=== PATIENT | male | born 1985 | race Caucasian/White ===

== ENCOUNTER 2021-07-16 07:20 | Outpatient (REF) | payer OTHER, SELFPAY ==
[2021-07-16 07:32] LABS: MANUAL DIFF FLAG NO
[2021-07-16 07:45] LABS: Basophils Absolute Auto 0.1 X10*3/uL (0.0-0.2); Eosinophils Absolute Auto 0.1 X10*3/uL (0.0-0.4); Eosinophils Percent Auto 2.9 % (0-4); Hemoglobin 15.2 g/dl (14.0-18.0); Imm Gran Abs Auto 0.01 X10*3/uL (0.00-0.03); Imm Gran Pct Auto 0.2 % (0.0-0.4); Lymphocytes Absolute Auto 1.7 X10*3/uL (1.2-4.9); Lymphocytes Percent Auto 34.2 % (20-40); Mean Corpuscular HGB Conc 32.3 g/dl (31.0-36.0); Mean Corpuscular Hemoglobin 28.6 pg (27.0-33.0); Mean Corpuscular Volume 88.3 fL (80.0-98.0); Mean Platelet Volume 10.2 fL (9.4-12.4); Monocytes Absolute Auto 0.4 X10*3/uL (0.1-1.2); Monocytes Percent Auto 7.4 % (2-11); Neutrophils Absolute Auto 2.7 x10*3/uL (2.0-8.3); Neutrophils Percent Auto 54.3 % (45-73); Platelet Count 287 X10*3/uL (160-400); Red Blood Count 5.32 X10*6/uL (4.60-5.80); White Blood Count 4.9 X10*3/uL (4.8-10.8)
[2021-07-16 07:58] LABS: Alanine Aminotransferase 72 U/L (0-40); Albumin Level 4.4 g/dL (3.5-5.0); Alkaline Phosphatase 61 U/L (39-117); Anion Gap 11 (12-20); Aspartate Amino Transferase 48 U/L (5-37); Bilirubin Total 0.6 mg/dL (0.0-1.0); Blood Urea Nitrogen 9 mg/dL (9-16); Calcium 9.5 mg/dL (8.4-10.2); Carbon Dioxide 27 mmol/L (22-29); Chloride 106 mmol/L (96-108); Cholesterol 209 mg/dL; Estimated Glomerular Filt Rate > 60; Glucose Fasting 102 mg/dL (60-99); HDL Cholesterol 29 mg/dL; LDL Cholesterol Calculated 159 mg/dl; Potassium 4.7 mmol/L (3.3-5.1); Sodium 139 mmol/L (135-145); Triglycerides 107 mg/dL
[2021-07-16 08:20] LABS: TSH reflex Free T4 1.01 uIU/mL (0.32-4.0)
== END 2021-07-16 07:21 | disposition home or self-care (01) ==
LOC: HO.LAB 07:20
PROVIDERS: PCP Nurse Practitioner Family; Visit Provider Nurse Practitioner Family
DX: I10 Essential (primary) hypertension (principal); E78.00 Pure hypercholesterolemia, unspecified; K21.9 Gastro-esophageal reflux disease without esophagitis; Z76.89 Persons encountering health services in other specified circumstances
CPT/HCPCS: 36415; 80053; 80061; 84443; 85025

== ENCOUNTER 2021-08-27 06:06 | Outpatient (REF) | payer OTHER, SELFPAY ==
[2021-08-27 11:51] LABS: Alanine Aminotransferase 83 U/L (0-40); Albumin Level 4.3 g/dL (3.5-5.0); Alkaline Phosphatase 59 U/L (39-117); Aspartate Amino Transferase 55 U/L (5-37); Bilirubin Direct 0.4 mg/dL (0.0-0.5); Gamma Glutamyl Transpeptidase 27 U/L (11-51); Total Protein 6.9 g/dL (6.5-8.0)
== END 2021-08-27 06:07 | disposition home or self-care (01) ==
LOC: HO.HMGCLDS 06:06
PROVIDERS: PCP Nurse Practitioner Family; Visit Provider Nurse Practitioner Family
DX: R74.8 Abnormal levels of other serum enzymes (principal)
CPT/HCPCS: 36415; 80076; 82977

== ENCOUNTER 2021-10-16 10:21 | Outpatient (REF) | payer OTHER, SELFPAY ==
--- NOTE | ~2021-10-16 | US_ITS ---
EXAMINATION: US ABDOMEN LIMITED CLINICAL INFORMATION: Elevated liver enzymes. COMPARISON: None. TECHNIQUE: Real-time imaging of the right upper quadrant abdominal viscera. FINDINGS: PANCREAS: Visualized head and part of the body of the pancreas is homogeneous. LIVER: The liver is normal in size. The liver contour is normal. Parenchymal echogenicity is normal. There are anechoic cyst. A right hepatic lobe cyst measures 1.2 x 0.9 x 1.2 cm and a smaller cyst adjacent to the gallbladder measures 0.6 x 0.6 x 0.8 cm. There is no intrahepatic biliary duct dilatation seen. GALLBLADDER: Gallbladder wall thickness is 0.21 cm. The gallbladder is physiologically distended without evidence of stones, sludge, polyps, wall thickening or pericholecystic fluid. COMMON BILE DUCT: Normal in caliber measuring 0.4 cm in diameter. RIGHT KIDNEY: Normal. No hydronephrosis. No renal calculi or focal parenchymal lesions. The kidney measures 12.2 cm in maximum dimension. FREE FLUID: None. US/US abdomen limited IMPRESSION: Right hepatic cyst. The rest of the limited ultrasound abdominal imaging is unremarkable.
== END 2021-10-16 10:22 | disposition home or self-care (01) ==
LOC: HO.HMGCX 10:21
PROVIDERS: Visit Provider Nurse Practitioner Family
DX: R74.8 Abnormal levels of other serum enzymes (principal)
CPT/HCPCS: 76705

== ENCOUNTER 2022-01-14 15:48 | Outpatient (REF) | payer OTHER, SELFPAY ==
--- NOTE | ~2022-01-14 | XR_ITS ---
EXAMINATION: OCTOBER PRE-MRI CLINICAL INFORMATION: Pre-MRI COMPARISON: None TECHNIQUE: 3 views of the orbits FINDINGS: No suspicious radiopaque foreign bodies are identified about the orbits. A linear metallic density is seen arising the nose which represents metal within the patient's mask. Areas are in place. Visualized paranasal sinuses and mastoid air cells appear unremarkable. XR/XR pre mri screening IMPRESSION: No suspicious radiopaque foreign body seen about the orbits.
== END 2022-01-14 15:49 | disposition home or self-care (01) ==
LOC: HO.MRI 15:48
PROVIDERS: Absent Provider Nurse Practitioner Family; Visit Provider Physician Assistant
DX: Z13.89 Encounter for screening for other disorder (principal)

== ENCOUNTER 2022-01-15 07:19 | Outpatient (REF) | payer OTHER, SELFPAY ==
--- NOTE | ~2022-01-15 | MR_ITS ---
EXAMINATION: MR ANGIOGRAPHY CHEST WITH CONTRAST CLINICAL INFORMATION: Strain of muscle and tendon. Patient reports bruising left chest and upper arm. COMPARISON: None. TECHNIQUE: The routine chest MRA protocol without and with contrast was performed. Magnevist 100 mL was administered. The images were reviewed and post processed on a dedicated 3-D workstation. FINDINGS: MUSCLES/TENDONS: Pectoralis major: There is a complete insertional tear of the pectoralis major tendon. Tendon is retracted approximately 4.7 cm. There is abnormal fluid signal surrounding the retracted tendon likely sequela of the tendon tear with areas of edema and perhaps evolving hemorrhage. The retracted tendon has a heterogeneous slightly serpentine appearance compatible with tendon shortening related to the retraction and additional intrasubstance partial tearing of the distal end of the tendon. The remaining bones, joints and soft tissues are unremarkable. MR/MR chest wo con IMPRESSION: Complete insertional tear of the pectoralis major tendon with retraction.
== END 2022-01-15 07:20 | disposition home or self-care (01) ==
LOC: HO.MRI 07:19
PROVIDERS: PCP Physician Assistant; Visit Provider Physician Assistant
DX: S29.011D Strain of muscle and tendon of front wall of thorax, subsequent encounter (principal)
CPT/HCPCS: 71550

== ENCOUNTER 2022-01-18 13:43 | Outpatient (RCR) | payer OTHER, SELFPAY ==
--- NOTE | 2022-01-18 14:49 | MHC.PT.EP ---
[facility] Office [place] Office [place] Office [address] Harijnder Lowry [address] [phone] F: [phone] F: [phone] F: [phone] F: [phone] Physical Therapy Plan of Care Date of Evaluation: Date of Surgery: n/a Diagnosis: strain of muscle and tendon for thorax Assessment: Patient is a 36 year old male presenting to PT with complaints of pain in his L chest/shoulder region. Pt reports onset of pain began at the end of November 2021 due to falling and trying to catch himself when doing a [employer] obstacle course. He presents today with impairments in pain, ROM, posture, strength. 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 Pt expresses oysterman goal of returning to PLOF, and is motivated to work towards this in PT. Clinical presentation today is most consistent with signs and sx associated with L pec injury with question of tear pending MRI results and pt will benefit from skilled PT to address the following problems and impairments noted upon evaluation: pain, ROM, posture, strength. These problems limit the patient with the following functional activities: work, playing with kids, ADLs, exercise, lifting, reaching. The prescribed treatment plan of care is medically necessary. Co-morbidities of none were identified and taken into considerations of plan of care. Pt was educated on HEP, role of PT, prognosis, POC. Frequency and Duration: The patient will be seen 2 x week x 4 weeks Short Term Goals: Pt will demonstrate improved L shoulder strength by 1/3 MMT grade in 2 weeks. Pt will demonstrate improved postural awareness by sitting with biomechanically correct posture without cues throughout session to improve overall postural function in 2 weeks. Pt will demonstrate L shoulder ROM in all directions with no discomfort in 2 weeks. Fpc Goals: Pt will demonstrate improved SPADI score by 13 points in 4 weeks for improved functional mobility. Pt will demonstrate ability to care for and play with kids with min to no pain in 4 weeks for return to PLOF. Pt will demonstrate ability to complete ADLs including lifting at PLOF with min to no pain in 4 weeks for return to PLOF. Treatment Plan: Modalities to reduce pain, spasms and effusion. Manual therapy to restore motion and function. Therapeutic exercise to improve strength and flexibility. Neuromuscular re-education for posture and balance. Therapeutic activities to return to functional activities of daily living. Electronically signed by: Melba Salazar, PT, DPT, ATC Please sign and return to therapist. Thank you for your referral.
--- NOTE | 2022-02-03 08:46 | MHC.PT.DC ---
[facility] [place] Office [place] Office [place] Office [address] Harjinder Lowry [address] [facility] [phone] F: [phone] F: [phone] F: [phone] F: [phone] Physical Therapy Discharge Report Diagnosis: strain of muscle and tendon for thorax Date of Surgery: n/a Date of Evaluation: 01/18/22 Date of Discharge: 02/03/22 Treatments to Date: 1 Cancellations to Date: 1 No Shows to Date: 0 Discharge Status: Physician Discontinued Tx Recommend MD Follow-up Discharge Summary: Pt notified he was candidate for surgery and is getting surgery. At this time skilled PT is no longer indicated. He will benefit from PT once post op. Electronically signed by: Melba Salazar, PT, DPT, ATC Please sign and return to therapist. Thank you for your referral.
== END 2022-02-03 08:46 | disposition home or self-care (01) ==
LOC: HO.PTCHIC 13:43
PROVIDERS: PCP Nurse Practitioner Family; Visit Provider Physician Assistant
DX: S29.011D Strain of muscle and tendon of front wall of thorax, subsequent encounter (principal)
CPT/HCPCS: 97110; 97161

== ENCOUNTER → 2022-01-28 08:43 | Outpatient (BNVA) | payer OTHER, SELFPAY | PROVIDERS: PCP Physician Assistant; Visit Provider Physician Assistant | DX: S29.011A Strain of muscle and tendon of front wall of thorax, initial encounter (principal) | CPT/HCPCS: 99202 ==

== ENCOUNTER 2022-02-03 11:20 | Day surgery (SDC) | payer OTHER, SELFPAY ==
--- NOTE | 2022-02-02 08:21 | HO.ANESPROP2 ---
Documented by User: Mali Briceno NP 02/02/22 08:22 HPI - Anesthesia Eval Consult details Narrative: 36yo M for Left Pectoral Muscle Repair PMFSH Active Problems Active Problems: All Active Problems (Updated 01/28/22 @ 09:57 by Leonie Encinas) Labral tear of long head of biceps tendon (Acute) Pectoral muscle rupture (Acute) Elevated liver enzymes (Acute) Chronic low back pain (Acute) Pseudofolliculitis barbae (Acute) GERD (gastroesophageal reflux disease) (Acute) Hypertension (Acute) Past Medical History Medical History (Updated 02/03/22 @ 13:00 by Olimpia Fairbanks, RN) Encounter to establish care GERD (gastroesophageal reflux disease) HTN (hypertension) Left foot pain Plantar fasciitis, bilateral Family History Family History Other Substance use disorder Surgical History Surgical History (Updated 02/03/22 @ 12:59 by Olimpia Fairbanks RN) History of photorefractive keratectomy (PRK) History of vasectomy [place] teeth extracted Social History Social History Housing: House Alcohol intake: current Alcohol intake frequency: a few times a month Patient Tobacco Use Status: Former Tobacco user Quit Date: 2014 e-Cigarette/Vaping Use: Never Used Second Hand Smoke Exposure: No Use of substances other than those prescribed or required for medical reasons: No Are you DNR?: No Advance Directives: No Advance Directives Information Provided: Yes service: Yes Current occupational status: employed Current occupation: [employer] Cognitive needs: No Hearing needs: No Vision needs: No Meds Allergies Allergy/AdvReac Type Severity Reaction Status Date / Time Penicillins Allergy Intermediate Hives Verified 02/03/22 13:00 Exam Exam Date and Time: February 02, 2022 0821 Pertinent Lab Results Pertinent Lab Results: Laboratory Tests 07/16/21 07/16/21 07:31 07:31 WBC 4.9 Hgb 15.2 Hct 47.0 Plt Count 287 Sodium 139 Potassium 4.7 Chloride 106 Carbon Dioxide 27 BUN 9 Creatinine 1.06 Assessment and Plan Assessment Anesthesia Assessment: Chart Reviewed Documented by User: Aki Sun MD 02/03/22 18:38 [facility] Past Medical History Medical History (Updated 02/03/22 @ 13:00 by Olimpia Fairbanks RN) Encounter to establish care GERD (gastroesophageal reflux disease) HTN (hypertension) Left foot pain Plantar fasciitis, bilateral Functional capacity: independent ambulation Family History Family History Other Substance use disorder Family history of problems with anesthesia: No Surgical History Surgical History (Updated 02/03/22 @ 12:59 by Olimpia Fairbanks, HELEN) History of photorefractive keratectomy (PRK) History of vasectomy [place] teeth extracted History of Problems with Anesthesia: No Social History Social History Housing: House Alcohol intake: current Alcohol intake frequency: a few times a month Patient Tobacco Use Status: Former Tobacco user Quit Date: 2014 e-Cigarette/Vaping Use: Never Used Second Hand Smoke Exposure: No Use of substances other than those prescribed or required for medical reasons: No Are you DNR?: No Advance Directives: No Advance Directives Information Provided: Yes service: Yes Current occupational status: employed Current occupation: [employer] Cognitive needs: No Hearing needs: No Vision needs: No Meds Allergies Allergy/AdvReac Type Severity Reaction Status Date / Time Penicillins Allergy Intermediate Hives Verified 02/03/22 13:00 Exam Airway Mallampati Class: IV Loose/Missing/Broken Teeth: Yes (Chipped front lower , fillings ) Assessment and Plan Assessment Anesthesia Assessment: Anesthesia Plan Discussed Final Anesthetic Review Family History of Problems with Anesthesia: No History of Problems with Anesthesia: No NPO: Yes ASA Class: II Final Preanesthetic Review: Meds/Allgs Chart Reviewed, Consent Obtained/Reviewed and Anes Risks/Benef Reviewed Patient Risk: Intermediate Procedure Risk: Intermediate Anesthetic Plan Anesthetic Plan: GA and Regional Block Disposition: Standard PACU Documented by User: Inga Martinez MD 02/03/22 15:50 PMFSH Past Medical History Medical History (Updated 02/03/22 @ 13:00 by Olimpia Fairbanks, RN) Encounter to establish care GERD (gastroesophageal reflux disease) HTN (hypertension) Left foot pain Plantar fasciitis, bilateral Family History Family History Other Substance use disorder Surgical History Surgical History (Updated 02/03/22 @ 12:59 by Olimpia Fairbanks, HELEN) History of photorefractive keratectomy (PRK) History of vasectomy [place] teeth extracted Social History Social History Housing: House Alcohol intake: current Alcohol intake frequency: a few times a month Patient Tobacco Use Status: Former Tobacco user Quit Date: 2014 e-Cigarette/Vaping Use: Never Used Second Hand Smoke Exposure: No Use of substances other than those prescribed or required for medical reasons: No Are you DNR?: No Advance Directives: No Advance Directives Information Provided: Yes service: Yes Current occupational status: employed Current occupation: [employer] Cognitive needs: No Hearing needs: No Vision needs: No Meds Allergies Allergy/AdvReac Type Severity Reaction Status Date / Time Penicillins Allergy Intermediate Hives Verified 02/03/22 13:00 Exam Height,Weight and Vital Signs: Height 5 ft 11 in Weight 108.862 kg Vital Signs Temp Pulse Resp BP Pulse Ox O2 Del Method 02/03/22 13:05 97.9 F 66 15 142/86 H 97 Room Air Airway Mallampati Class: II TM Dist: >3cm Neck ROM: Full Heart: RRR Lungs: CTAB
[2022-02-03 13:01] VITALS: BMI 33.5
[2022-02-03 13:05] VITALS: BP 142/86; PULSE 66; RESP 15; TEMP 36.6; O2SAT 97
--- NOTE | 2022-02-03 13:43 | MHC.SHP ---
Pre-Procedural Eval Section A Date of Service: 02/03/22 The patient is an INPATIENT: No Changes since office visit: No Cold of Flu in the past 2 weeks, No New Medical Problems, No Changes in Medication and No Patient answered all questions The History & Physical has been completed within 30 days and I have reviewed it.: Yes Section B Chief Complaint: Strain of muscle and tendon of front wall of thora Allergies: Allergies Allergy/AdvReac Type Severity Reaction Status Date / Time Penicillins Allergy Intermediate Hives Verified 02/03/22 13:00 Plan I have reviewed the history and physical and performed a pertinent physical examination on my patient. No changes have occurred unless specified.
[2022-02-03] MEDS: Lactated Ringers 1,000 ML 100 ML IVCONT (13:55)
--- NOTE | 2022-02-03 17:29 | P.BOP_ITS ---
Brief Operative Note Date of Service: 02/03/22 Pre-op diagnosis: Left pectoralis rupture Post-op diagnosis: same Procedure: Repair left pectoralis Implants: Paiz and nephew sutue button x 4 Dermal Allograft 3mm thick, Chencho and Nephjuana Surgeon: Nicanor Nagy MD Anesthesia: GETA, regional and local Was an Construction Driller used for this Procedure?: Yes Construction Driller: Keyonna Winn Estimated blood loss (mL): 50 IV fluids (mL): 1,000 Pathology: none sent Condition: stable Disposition: PACU
[2022-02-03 18:00] VITALS: BP 139/87; PULSE 87; RESP 16; TEMP 36.7; O2SAT 100
[2022-02-03 18:05] VITALS: BP 137/85; PULSE 85; RESP 16; O2SAT 94
[2022-02-03 18:10] VITALS: BP 141/84; PULSE 85; RESP 16; O2SAT 95
[2022-02-03 18:25] VITALS: BP 132/83; PULSE 96; RESP 16; O2SAT 95
--- NOTE | 2022-02-09 11:22 | W.PM.OPN ---
Operative Note Operative Note Date of Service: 02/03/22 Narrative: Date of Service: 02/03/22 Pre-op diagnosis: Left pectoralis rupture Post-op diagnosis: same Procedure: Repair left pectoralis Implants: Paiz and nephew sutue button x 4 Dermal Allograft 3mm thick, Chencho and Nephjuana Surgeon: Nicanor Nagy MD Anesthesia: GETA, regional and local Was an Plastic Cnc Machine Operator used for this Procedure?: Yes Plastic Cnc Machine Operator: Keyonna Winn Estimated blood loss (mL): 50 IV fluids (mL): 1,000 Pathology: none sent Condition: stable Disposition: PACU Patient was brought to the operating room and placed in the beach chair position on the surgical table. The limb was prepped and draped in standard sterile fashion and a time out was called to identify proper site, proper procedure and IV antibiotics per weight were administered. I began by making a deltopectoral incision from the coracoid to the pectoralis insertion.? Blunt dissection identified the cephalic vein which was retracted laterally.? Blunt dissection was taken down to the pec insertion. The clavicular head was palpable but the sternal head was retracted. I bluntly dissected circumerentially around the pectoralis to release the tendon. It was mobile but tight. I placed 4 fiber tapes, in [place] fashion through the tendon. I then cleared the soft tissue from the pectoralis insertion jut lateral to the bicipital groove. I then placed 4 suture buttons unicortically. Because the tendon was tight and sub acute a used a free needle and a collagen 3mm allograft the the undersurface of the tendon to prevent suture pullout. This was very solid and resisted as much tension as I woulc apply. I then dunked the sutures into the corresponding suture bottons and, with the arm internally rotated and adducted, re-approximated the sternal head of the pec tendon to its [place] insertion on the humerus. This was re-approximated near-anatomically. I was satisfied with the construct. I irrigated copiously and closed with absorbable sutures and skin glue. Pateint was placed into a sterile dressing nad abduction sling and then extubated and brought to the recovery room in stable conditions. There were no known complications.
== END 2022-02-03 19:10 | disposition home or self-care (01) ==
LOC: HO.SSS 11:21
PROVIDERS: PCP Physician Assistant; Visit Provider Orthopaedic Surgery
PROC: (CPT 24341; principal; 2022-02-03 14:10)
DX: S29.011A Strain of muscle and tendon of front wall of thorax, initial encounter (principal); W18.49XA Other slipping, tripping and stumbling without falling, initial encounter; Y93.B9 Activity, other involving muscle strengthening exercises; Y92.84 Military training ground as the place of occurrence of the external cause; Y99.1 Military activity; I10 Essential (primary) hypertension; R74.8 Abnormal levels of other serum enzymes; K21.9 Gastro-esophageal reflux disease without esophagitis; Z79.899 Other long term (current) drug therapy; Z88.0 Allergy status to penicillin; Z72.0 Tobacco use
CPT/HCPCS: 24341; C1713; J0690; J1100; J2250; J2405; J2795; J3010; Q4128

== ENCOUNTER → 2022-02-08 09:44 | Outpatient (BNVA) | payer OTHER, SELFPAY | PROVIDERS: PCP Internal Medicine; Visit Provider Physician Assistant | DX: S29.011D Strain of muscle and tendon of front wall of thorax, subsequent encounter (principal) | CPT/HCPCS: 99212 ==

== ENCOUNTER → 2022-03-08 10:08 | Outpatient (BNVA) | payer OTHER, SELFPAY | PROVIDERS: PCP Internal Medicine; Visit Provider Physician Assistant | DX: S29.011D Strain of muscle and tendon of front wall of thorax, subsequent encounter (principal) | CPT/HCPCS: 99212 ==

== ENCOUNTER → 2022-04-19 08:43 | Outpatient (BNVA) | payer OTHER, SELFPAY | PROVIDERS: PCP Internal Medicine; Visit Provider Physician Assistant | DX: Z13.89 Encounter for screening for other disorder (principal) | CPT/HCPCS: 99212 ==

== ENCOUNTER 2022-05-07 08:49 | Outpatient (REF) | payer OTHER, SELFPAY ==
[2022-05-07 12:35] LABS: Alanine Aminotransferase 42 U/L (0-40); Albumin Level 4.5 g/dL (3.5-5.0); Alkaline Phosphatase 60 U/L (39-117); Anion Gap 15 (12-20); Aspartate Amino Transferase 30 U/L (5-37); Bilirubin Total 0.7 mg/dL (0.0-1.0); Blood Urea Nitrogen 19 mg/dL (9-16); Calcium 9.4 mg/dL (8.4-10.2); Carbon Dioxide 23 mmol/L (22-29); Chloride 107 mmol/L (96-108); Estimated Glomerular Filt Rate > 60; Glucose Random 105 mg/dL (60-115); Potassium 4.6 mmol/L (3.3-5.1); Sodium 140 mmol/L (135-145); Total Protein 6.8 g/dL (6.5-8.0)
[2022-05-10 08:21] LABS: HBc Num1 0.23 S/CO (0.00-0.79); HBsAGNum1 0.34 S/CO (0.00-0.99); Hepatitis A Antibody IgM 0.28 Index (0-0.79); Hepatitis B Core Antibody Nonreactive (Nonreactive); Hepatitis B Surface Antigen Negative (Negative); ~HepC Num1 0.17 S/CO (0.00-0.79); ~Hepatitis A Antibody IgM Nonreactive (Nonreactive); ~Hepatitis B Surface Antibody REACTIVE (Nonreactive); ~Hepatitis C Antibody Nonreactive (Nonreactive)
== END 2022-05-07 08:50 | disposition home or self-care (01) ==
LOC: HO.HMGCLDS 08:49
PROVIDERS: PCP Nurse Practitioner Family; Visit Provider Nurse Practitioner Family
DX: R74.8 Abnormal levels of other serum enzymes (principal)
CPT/HCPCS: 36415; 80053; 86704; 86706; 86709; 86803; 87340

== ENCOUNTER → 2022-06-18 09:19 | Outpatient (BNVA) | payer OTHER, SELFPAY | PROVIDERS: PCP Nurse Practitioner Family; Visit Provider Physician Assistant | DX: S29.011D Strain of muscle and tendon of front wall of thorax, subsequent encounter (principal) | CPT/HCPCS: 99212 ==

== ENCOUNTER 2022-07-26 10:00 | Outpatient (RCR) | payer OTHER, SELFPAY ==
--- NOTE | 2022-02-08 11:26 | MHC.PT.EP ---
[facility] [place] Office [place] Office [place] Office [address] Harjinder Lowry [address] [phone] F: [phone] F: [phone] F: [phone] F: [phone] Physical Therapy Plan of Care Date of Evaluation: Date of Surgery: 02/03/22 Diagnosis: LEFT PECT REPAIR Assessment: CHRISTINA IS A PLEASANT 36 YO MALE WHO WORKS AT [employer] AND PRESENTS POD #5 FOR ORTHOPEDIC FOLLOW UP AND PT EVALUATION. UPON EXAM HE DEMONSTRATES THE EXPECTED IMPAIRMENTS OF DECREASED ROM, DECREASED STRENGTH, ALTERED POSTURE AND POSITIONING, INCREASED UPPER TRAP GUARDING, AND INCREASED PAIN AND EDEMA. FUNCTIONAL LIMITATIONS INCLUDE DECREASED ABILITY TO PERFORM HOMEMAKING AND SELF-CARE TASKS, DECREASED ABILITY TO PERFORM PUSHING, PULLING, LIFTING AND REACHING. INABILITY TO DRIVE AND PERFORM WORK TASKS, DECREASED PARTICIPATION IN COMMUNITY AND RECREATIONAL ACTIVITIES AND DISRUPTED SLEEP. THE PT IS A GOOD CANDIDATE FOR SKILLED PT DUE TO AGE, POTENTIAL REMEDIATION OF IMPAIRMENTS, TYPICAL DISEASE/CONDITION PROGRESSION AND PROGNOSIS, COMORBIDITIES, AND MOTIVATION. PT WOULD BENEFIT FROM TAILORED PROGRAM OF THERAPEUTIC ACTIVITIES, FUNCTIONAL TRAINING,, POSTURAL EDUCATION, NEUROMUSCULAR RE-EDUCATION, AND MODALITIES NEEDED. 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 Manual therapy to restore motion and function. Therapeutic exercise to improve strength and flexibility. Neuromuscular re-education for posture and balance. Therapeutic activities to return to functional activities of daily living. Electronically signed by: CRISPIN CARNES PT, DPT Please sign and return to therapist. Thank you for your referral.
--- NOTE | 2022-07-26 10:55 | MHC.PT.DC ---
[facility] [place] Office [place] Office [place] Office [address] Harjinder Lowry [address] [phone] F: [phone] F: [phone] F: [phone] F: [phone] Physical Therapy Discharge Report Diagnosis: LEFT PECT REPAIR Date of Surgery: 02/03/22 Date of Evaluation: 02/08/22 Date of Discharge: 07/26/22 Treatments to Date: 45 Cancellations to Date: 3 No Shows to Date: 1 Discharge Status: Achieved Goals Improved Function Independent with HEP Discharge Summary: 07/26/2022: Ole has made good progress since start of care. He has made great progress in strength, ROM, and functional mobility. He is no longer experiencing pain but still feeling weakness with more challenging activities like pushups. He does not have his full pushup strength at this point however we discussed that it will take months for his full strength to develop and he is independent in a home program that will allow him to progress to full strength with continuation. He is required to be able to do pushups for a fitness test for work and he understands the importance of continuing in order to be able to complete this. At this time max benefits of PT have been provided and skilled PT is no longer indicated. He is in agreement with d/c today. Electronically signed by: Melba Salazar, PT, DPT, ATC Please sign and return to therapist. Thank you for your referral.
== END 2022-07-26 10:55 | disposition home or self-care (01) ==
LOC: HO.PTCHIC 10:00
PROVIDERS: PCP Internal Medicine; Visit Provider Physician Assistant
DX: S29.011D Strain of muscle and tendon of front wall of thorax, subsequent encounter (principal)
CPT/HCPCS: 97110; 97140; 97161; 97530

== ENCOUNTER → 2022-08-13 09:18 | Outpatient (BNVA) | payer OTHER, SELFPAY | PROVIDERS: PCP Nurse Practitioner Family; Visit Provider Physician Assistant | DX: S29.011D Strain of muscle and tendon of front wall of thorax, subsequent encounter (principal) | CPT/HCPCS: 99212 ==

== ENCOUNTER 2022-11-04 08:31 | Outpatient (REF) | payer OTHER, SELFPAY ==
--- NOTE | ~2022-11-04 | US_ITS ---
EXAMINATION: US ABDOMEN LIMITED CLINICAL INFORMATION: Liver cyst. COMPARISON: Ultrasound abdomen limited 10/16/2021. TECHNIQUE: Real-time imaging of the right upper quadrant abdominal viscera. FINDINGS: PANCREAS: Visualized portions of the pancreas are unremarkable. The pancreatic body and tail is obscured by bowel gas. LIVER: The liver is normal in size. The liver contour is normal. Parenchymal echogenicity is normal. Benign-appearing hepatic cysts measuring up to 1.3 cm, previously 1.2 cm There is no intrahepatic biliary duct dilatation seen. GALLBLADDER: Normal. The gallbladder is physiologically distended without evidence of stones, sludge, polyps, wall thickening or pericholecystic fluid. COMMON BILE DUCT: Normal in caliber measuring 0.44 cm in diameter. RIGHT KIDNEY: Normal. No hydronephrosis. No renal calculi or focal parenchymal lesions. The kidney measures 12.7 cm in maximum dimension. FREE FLUID: None. US/US abdomen limited IMPRESSION: 1. Benign-appearing hepatic cysts. 2. Visualized portions of the pancreas are unremarkable. The pancreatic body and tail is obscured by bowel gas.
== END 2022-11-04 08:32 | disposition home or self-care (01) ==
LOC: HO.HMGCX 08:31
PROVIDERS: PCP Nurse Practitioner Family; Visit Provider Nurse Practitioner Family
DX: K76.89 Other specified diseases of liver (principal)
CPT/HCPCS: 76705

== ENCOUNTER 2022-11-11 05:13 | Outpatient (REF) | payer OTHER, SELFPAY ==
--- NOTE | ~2022-11-11 | XR_ITS ---
EXAMINATION: XR SHOULDER, RIGHT CLINICAL INFORMATION: Pain. COMPARISON: None available. TECHNIQUE: AP neutral, Grashey and axillary views of the right shoulder are submitted. FINDINGS: The bones and soft tissues are normal. No fracture. Glenohumeral and acromioclavicular alignment is anatomic with normal joint space. No abnormal soft tissue calcifications. XR/XR shoulder RT min 2V IMPRESSION: Normal right shoulder.
== END 2022-11-11 05:14 | disposition home or self-care (01) ==
LOC: HO.HOSX 05:13
PROVIDERS: Visit Provider Physician Assistant
DX: M25.511 Pain in right shoulder (principal)
CPT/HCPCS: 20610; 73030; 99212; J1040

== ENCOUNTER 2022-11-11 10:23 | Outpatient (AMB) | payer OTHER, SELFPAY ==
--- NOTE | 2022-11-11 10:38 | MHC.OFFVIS ---
Intake Vital Signs 11/11/22 10:44 Height 5 ft 11 in Weight 245 lb BMI 34.2 Handedness Right Intake Visit Reasons: New Prob- Right shoulder pain Intake Note: Ole is a 36 year old right hand dominant male who presents today for a evaluation for his right shoulder pain. Patient reports waking up in the morning with a lot of pain. He states he was feeling pinching and a burning sensation. Patient reports his ROM is a little limited due to the pain. Pain is in the lateral aspect of the shoulder. Allergies Penicillins Allergy (Intermediate, Verified 11/11/22 10:42) Hives HPI New Prob- Right shoulder pain HPI Details 37-year-old right hand dominant male who presents in the office today for an evaluation of right shoulder pain. The patient reports his pain originated a month ago, 09/2022. He states he woke up this morning with a lot of pain. He claims to having a pinching and burning sensation, but this is not present while he is in the office today. He reports his ROM is a little limited due to pain. He claims the pain is on the lateral aspect of the right shoulder. He does not recall any injury. He states he went to the gym this morning and states the shoulder did fine. [facility] Medical History Encounter to establish care GERD (gastroesophageal reflux disease) HTN (hypertension) Left foot pain Plantar fasciitis, bilateral Surgical History History of photorefractive keratectomy (PRK) History of vasectomy [place] teeth extracted Family History Other Substance use disorder Social History Housing: House Alcohol intake: current Alcohol intake frequency: a few times a month Patient Tobacco Use Status: Former Tobacco user Quit Date: 2014 e-Cigarette/Vaping Use: Never Used Second Hand Smoke Exposure: No service: Yes Current occupational status: employed Current occupation: [employer] Cognitive needs: No Hearing needs: No Vision needs: No Review of Systems Const All systems reviewed & are unremarkable except as noted in HPI and below Physical Exam Vital Signs: BMI result Body Mass Index 34.2 Const General: cooperative, healthy appearing and no acute distress Resp Effort & Inspection: normal respiratory effort and able to speak in complete sentences Cardio Rate: regular rate Peripheral pulses: Peripheral pulses 2+ throughout GI Palpation (GI): Soft to palpation Skin Lesions: no lesions Rashes: no rashes Extrem Other: Right shoulder: Normal to inspection. No ecchymosis, erythema, or edema. Full shoulder ROM in all planes. Negative cross-body reach. Negative empty can. Negative drop arm. NVI. Office Procedures Joint Injection/Drain Joint Injection/Drain Primary Site: right shoulder Prep: site was prepped using aseptic technique, ethochloride spray was applied and injection warnings given Injected: 80 mg of, DepoMedrol, with 8 mL of (2% lido plain) and in the subcromial space Approach Used: posterolateral Procedure: The patient tolerated the procedure well, but had some pain with the injection and there was some relief with the local anesthesia Coding 92764 - Large joint Procedure code (CPT) selection complete Results Reviewed Results Reviewed: 11/11/22 11:10 Lidocaine HCl 2 % MPF [Xylocaine 2 % MPF] 5 ml .ROUTE .STK-MED ONE methylPREDNISolone acetate [DEPO-MedroL] 80 mg .ROUTE .STK-MED ONE 11/11/22 11:11 Lidocaine HCl 2 % MPF [Xylocaine 2 % MPF] 5 ml .ROUTE .STK-MED ONE Assessment & Plan Assessment & Plan (1) Painful arc syndrome of right shoulder: Code(s): M75.101 - Unspecified rotator cuff tear or rupture of right shoulder, not specified as traumatic Plan Mr. Veliz is a 37-year-old right hand dominant male who presents in the office today for an evaluation of right shoulder pain. The patient reports his pain originated a month ago, 09/2022. He states he woke up this morning with a lot of pain. He claims to having a pinching and burning sensation, but this is not present while he is in the office today. He reports his ROM is a little limited due to pain. He claims the pain is on the lateral aspect of the right shoulder. He does not recall any injury. He states he went to the gym this morning and states the shoulder did fine. The patient was offered a cortisone injection in the right shoulder with 80 mg of DepoMedrol. The patient was explained the risk, benefits, and alternatives to receiving this injection. After receiving consent for the injection, the patient had the procedure done while in office today. The patient tolerated the procedure well with no complications. I also discussed the role of physical therapy. He will defer at this time to give the cortisone injection time to work. Follow up will be PRN, or sooner if needed. X-rays of the right shoulder which were obtained while in the office today and were reviewed by me, Keyonna Winn PA-C, revealed no acute fractures or dislocation. Orders: Orders XR shoulder RT min 2V Today M25.519 - Pain in unspecified shoulder Patient Instructions: Scribed for Keyonna Winn PA-C by Leonie Encinas medical staff director, on 11/11/2022 at 10:26 am, EST. Coding Level of Care Code Est Pt Level 4 (97570) Diagnoses Painful arc syndrome of right shoulder M75.101 CPT Codes Coding - 59283 Large joint: 20267 - Large joint ([id number])
[2022-11-11 10:44] VITALS: BMI 34.2
== END 2022-11-11 12:24 | disposition home or self-care (01) ==
PROVIDERS: PCP Nurse Practitioner Family; Visit Provider Physician Assistant
DX: M75.101 Unspecified rotator cuff tear or rupture of right shoulder, not specified as traumatic (principal)
CPT/HCPCS: 20610; 99214

== ENCOUNTER 2023-01-07 14:58 | Outpatient (AMB) | payer OTHER, SELFPAY ==
--- NOTE | 2023-01-07 14:59 | MHC.OFFVIS ---
Intake Vital Signs 01/07/23 15:03 Height 5 ft 11 in Weight 246 lb 14.684 oz BMI 34.4 BP 154/91 H Blood Pressure Location Lt brachial Position Sitting Pulse 80 Intake Visit Reasons: Other specified diseases of liver Intake Note: Ole presents in the office as a new patient for liver disease. CC: He states that he is not having any concerns today - he was told he has a cyst on the liver. Allergies Penicillins Allergy (Intermediate, Verified 01/20/23 08:42) Hives HPI HPI Comments History of Present Illness Details This is a 37y.o M who was referred to our office by his PCP for abnormal LFTs. Pt otherwise does not report any sx to include abd pain, N,V, rash, change in bowel habits. No fam hx of chronic liver disease. He has had elevated transaminases since at least 2021. More recently this was again investigated by his PCP and prelim work up shows negative chronic hep serologies and US Abd with benign appearing cysts but no obv steatosis reported. Pt does not report using any herbal supplements or OTC/CAM. [facility] Medical History GERD (gastroesophageal reflux disease) HTN (hypertension) Plantar fasciitis, bilateral Left foot pain Encounter to establish care Surgical History [place] teeth extracted History of vasectomy History of photorefractive keratectomy (PRK) Family History Other Substance use disorder Social History Housing: House Alcohol intake: current Alcohol intake frequency: a few times a month Patient Tobacco Use Status: Former Tobacco user Quit Date: 2014 e-Cigarette/Vaping Use: Never Used Second Hand Smoke Exposure: No service: Yes Current occupational status: employed Current occupation: [employer] Cognitive needs: No Hearing needs: No Vision needs: No Review of Systems Const All systems reviewed & are unremarkable except as noted in HPI and below Physical Exam Vital Signs: Last Vital Signs Pulse 80 01/07/23 15:03 BP 154/91 H 01/07/23 15:03 BMI result Body Mass Index 34.4 Gen appear: NAD HEENT: nonicteric, no cervical lymphadenopathy Chest: CTA CVS: Regular S1/S2 Abd: soft, nontender, nondistended, bowel sounds + Ext: no peripheral edema Neuro: A/Ox3, noted to move all extremities spontaneously Psych: interacting appropriately Assessment & Plan Assessment & Plan (1) Hepatic cyst: Code(s): K76.89 - Other specified diseases of liver (2) Elevated liver enzymes: Code(s): R74.8 - Abnormal levels of other serum enzymes Plan Reviewed with the pt that although has some risk factors for fatty liver such as obesity, HTN, no steatosis was noted on US. Will get labs to r/o other metabolic risk factors such as DM or HLD as well as etiology of chronic liver disease including AIH, iron overload, wilsons, A1at etc. Will also check a PETH although pt does not report drinking significant etOH and AST:ALT ratio not suggestive either. Based on US, hepatic cysts do not need imaging surveillance at this time. Further work up including indication for dedicated MRI +/- biopsy contingent on above Follow up 4 weeks Orders: Orders Alpha 1 Anti-trypsin 01/07/23 R74.8 - Abnormal levels of other serum enzymes MEGAN Reflex Titer and Pattern 01/07/23 R74.8 - Abnormal levels of other serum enzymes Liver Kidney Microsomal Ab 01/07/23 R74.8 - Abnormal levels of other serum enzymes IRON PROFILE 01/07/23 R74.8 - Abnormal levels of other serum enzymes Immunoglobulin A 01/07/23 R74.8 - Abnormal levels of other serum enzymes Phosphatidylethanol, Blood 01/07/23 R74.8 - Abnormal levels of other serum enzymes Complete Blood Count no Diff 01/07/23 R74.8 - Abnormal levels of other serum enzymes Prothrombin Time INR 01/07/23 R74.8 - Abnormal levels of other serum enzymes Ferritin 01/07/23 R74.8 - Abnormal levels of other serum enzymes Immunoglobulin G 01/07/23 R74.8 - Abnormal levels of other serum enzymes Transglutaminase IgA 01/07/23 R74.8 - Abnormal levels of other serum enzymes Smooth Muscle Antibody 01/07/23 R74.8 - Abnormal levels of other serum enzymes Liver Panel 01/07/23 R74.8 - Abnormal levels of other serum enzymes Ceruloplasmin 01/07/23 R74.8 - Abnormal levels of other serum enzymes Hemoglobin A1c 01/07/23 E66.9 - Obesity, unspecified Coding Level of Care Code New Pt Level 4 (73057) Diagnoses Hepatic cyst K76.89 Elevated liver enzymes R74.8
[2023-01-07 15:03] VITALS: BP 154/91; PULSE 80; BMI 34.4
== END 2023-01-07 16:00 | disposition home or self-care (01) ==
PROVIDERS: PCP Internal Medicine; Visit Provider Internal Medicine
DX: K76.89 Other specified diseases of liver (principal); R74.8 Abnormal levels of other serum enzymes
CPT/HCPCS: 99204

== ENCOUNTER → 2023-01-07 14:58 | Outpatient (BNVA) | payer OTHER, SELFPAY | PROVIDERS: PCP Internal Medicine; Visit Provider Internal Medicine | DX: R74.8 Abnormal levels of other serum enzymes (principal); E66.9 Obesity, unspecified | CPT/HCPCS: 99202 ==

== ENCOUNTER 2023-01-20 07:57 | Outpatient (REF) | payer OTHER, SELFPAY ==
[2023-01-20 11:36] LABS: Hematocrit 44.5 % (42.0-52.0); Hemoglobin 14.9 g/dl (14.0-18.0); Mean Corpuscular HGB Conc 33.5 g/dl (31.0-36.0); Mean Corpuscular Hemoglobin 28.8 pg (27.0-33.0); Mean Corpuscular Volume 86.1 fL (80.0-98.0); Mean Platelet Volume 11.1 fL (9.4-12.4); Platelet Count 318 X10*3/uL (160-400); Red Blood Count 5.17 X10*6/uL (4.60-5.80); Red Cell Distribution Width 13.2 % (11.0-16.0); White Blood Count 5.1 X10*3/uL (4.8-10.8)
[2023-01-20 11:41] LABS: INTERNATIONAL NORM RATIO 0.9 (0.9-1.1); Prothrombin Time 10.6 SEC (11.1-13.3)
[2023-01-20 11:48] LABS: Estimated Average Glucose 100 mg/dL; Hemoglobin A1c % 5.1 % (<6.0)
[2023-01-20 12:01] LABS: Alanine Aminotransferase 123 U/L (0-40); Albumin Level 4.3 g/dL (3.5-5.0); Alkaline Phosphatase 51 U/L (39-117); Aspartate Amino Transferase 48 U/L (5-37); Bilirubin Direct 0.2 mg/dL (0.0-0.5); Bilirubin Total 0.4 mg/dL (0.0-1.0); Iron 62 mcg/dL (45-160); Percent Iron Saturation 18 % (15-50); Total Iron Binding Capacity 344 mcg/dL (228-428); Total Protein 6.9 g/dL (6.5-8.0); Unsaturated Iron Binding 282 ug/dL
[2023-01-20 12:21] LABS: Ferritin 87 ng/mL (20-250)
[2023-01-21 17:34] LABS: Immunoglobulin A 206 mg/dL (47-310); Immunoglobulin G 775 mg/dL (600-1640)
[2023-01-22 04:43] LABS: Alpha 1 Anti-trypsin 136 mg/dL (83-199); Ceruloplasmin 21 mg/dL (18-36)
[2023-01-22 19:03] LABS: Transglutaminase IgA <1.0 U/mL
[2023-01-24 12:13] LABS: Anti Nuclear Antibody Screen NEGATIVE (NEGATIVE)
[2023-01-24 22:27] LABS: Liver Kidney Microsomal Ab <=20.0 U (<=20.0)
[2023-01-26 09:48] LABS: Smooth Muscle Antibody <20 U (<20)
[2023-01-27 11:32] LABS: Phosphatidylethanol 16:0-18:1 NEGATIVE
[2023-01-27 11:33] LABS: Phosphatidylethanol 16:0-18:2 NEGATIVE
== END 2023-01-20 07:58 | disposition home or self-care (01) ==
LOC: HO.HMGCLDS 07:57
PROVIDERS: PCP Internal Medicine; Visit Provider Internal Medicine
DX: R74.8 Abnormal levels of other serum enzymes (principal); E66.9 Obesity, unspecified
CPT/HCPCS: 36415; 80076; 80321; 82103; 82390; 82728; 82784; 83036; 83540; 85027; 85610; 86015; 86038; 86364; 86376

== ENCOUNTER 2023-01-20 08:28 | Outpatient (AMB) | payer OTHER, SELFPAY ==
[2023-01-20 08:30] VITALS: BP 112/70; PULSE 72; O2SAT 98; BMI 34.3
--- NOTE | 2023-01-20 08:30 | MHC.PC.OV ---
Vital Signs 01/20/23 08:30 Height 5 ft 11 in Weight 246 lb BMI 34.3 BP 112/70 Blood Pressure Location Lt brachial Position Sitting Pulse 72 Pulse Source Pulse Oximeter Pulse Oximetry (%) 98 Oxygen Delivery Method Room Air Intake Visit Reasons: F/U on HTN, GERD Mock Up Assembler Required: No Allergies Penicillins Allergy (Intermediate, Verified 01/20/23 08:42) Hives Medication List - Last Reconciled 01/20/23 by LETI Berger hydrochlorothiazide 25 mg PO DAILY 90 days omeprazole 20 mg PO DAILY Tobacco use date assessed: 01/20/23 Dental Screening Dental Screen Date: 01/20/23 Did you have a dental visit in the last 12 months?: Yes Did you have a dental problem in the last 6 months where you did not have access to dental care?: No Was dental information given to patient?: Patient has dentist HPI F/U on HTN, GERD HPI Details Patient is a 37-year-old male who presents today to follow-up on hypertension and acid reflux. Medical history significant for obesity, hepatic cyst-followed by GI Dr. Guerrero. He needs refill on omeprazole. No shortness of breath or chest pain. [facility] Medical History GERD (gastroesophageal reflux disease) HTN (hypertension) Plantar fasciitis, bilateral Left foot pain Encounter to establish care Surgical History [place] teeth extracted History of vasectomy History of photorefractive keratectomy (PRK) Family History Other Substance use disorder Social History Housing: House Alcohol intake: current Alcohol intake frequency: a few times a month Patient Tobacco Use Status: Former Tobacco user Quit Date: 2014 e-Cigarette/Vaping Use: Never Used Second Hand Smoke Exposure: No service: Yes Current occupational status: employed Current occupation: [employer] Cognitive needs: No Hearing needs: No Vision needs: No Questionnaire Thrive Questionnaire Date Thrive assessed: 07/20/22 AUDIT C Alcohol Use Questionnaire (AUDIT-C) 1. How often do you have a drink containing alcohol?: 2-4 times a month 2. How many drinks containing alcohol do you have on a typical day when you are drinking?: 1 or 2 3. How often do you have six or more drinks on one occasion?: Never Total Score: 2 Score Reviewed/Action Taken: No ELIAS-7 AMB Questionnaire ELIAS-7 Date ELIAS - 7 assessed: 07/20/22 Source: Developed by Drs. Shimon Stephenson, Brittni Licona, Vivek Huff and colleagues, with an educational yamileth from [employer]. Review of Systems Const Denies body aches, Denies chills, Denies fever(s) and Denies headache(s) ENT Denies dizziness, Denies otalgia, Denies headache(s), Denies nasal discharge, Denies sinus pain and Denies sore throat Card Denies chest pain, Denies edema, Denies lightheadedness and Denies dyspnea Resp Denies cough and Denies dyspnea GI Denies constipation, Denies diarrhea, Denies nausea and Denies vomiting Denies dysuria Musc Denies myalgias Skin/Breast Denies rash Neuro Denies dizziness and Denies headache(s) Physical exam (Primary Care) Vital Signs: Last Vital Signs Pulse 72 01/20/23 08:30 BP 112/70 01/20/23 08:30 Pulse Ox 98 01/20/23 08:30 Oxygen Delivery Method Room Air 01/20/23 08:30 BMI result Body Mass Index 34.3 Tobacco/Smoking Status: Tobacco use Status Tobacco use date assessed 01/20/23 01/20/23 08:36 Patient Tobacco Use Status Former Tobacco user 01/20/23 08:36 e-Cigarette/Vaping Use Never Used 01/20/23 08:36 Thrive Assessment: Date of Thrive Assessment Date Thrive assessed 07/20/22 01/20/23 08:36 Const General: cooperative and no acute distress Orientation/consciousness: patient oriented x3 HENMT Head: Yes normocephalic and Yes atraumatic Throat: Yes posterior oropharynx normal Eyes General: appearance normal, both eyes and all related structures Neck Neck: Yes normal visual inspection and Yes full ROM Resp Effort & Inspection: normal respiratory effort and able to speak in complete sentences Auscultation: clear to auscultation bilaterally, no crackles, no rales, no rhonchi and no wheezes Cardio Rate: regular rate Rhythm: regular rhythm Heart sounds: S1 normal heart sound present, S2 normal heart sound present and no murmurs GI Auscultation: normal bowel sounds Skin General skin exam: no rashes or lesions noted Neuro General: patient oriented x3 Gait exam (Neuro): Normal gait present Extrem General: Yes full ROM and No edema Assessment and Plan Assessment & Plan (1) GERD (gastroesophageal reflux disease): Code(s): K21.9 - Gastro-esophageal reflux disease without esophagitis Plan: Continue omeprazole 20 mg daily Avoid GERD trigger foods Do not lay down 2-3 hours after evening meal (2) Hypertension: Code(s): I10 - Essential (primary) hypertension Plan: Goal BP equal or less than 140/90 Continue hydrochlorothiazide 25 mg daily Low-sodium diet and weight loss (3) Hepatic cyst: Code(s): K76.89 - Other specified diseases of liver Plan: Continue to follow-up with GI Dr. Guerrero (4) Obesity (BMI 30-39.9): Code(s): E66.9 - Obesity, unspecified Plan: Healthy food choices and exercise as tolerated Plan Keep appointment as scheduled or follow-up sooner as needed Medications: Refilled omeprazole 20 mg PO DAILY 90 caps 1RF K21.9 - Gastro-esophageal reflux disease without esophagitis Coding Level of Care Code Est Pt Level 4 (34927) Diagnoses GERD (gastroesophageal reflux disease) K21.9 Hypertension I10 Hepatic cyst K76.89 Obesity (BMI 30-39.9) E66.9
== END 2023-01-20 08:51 | disposition home or self-care (01) ==
LOC: HO.HMGH 08:28
PROVIDERS: PCP Internal Medicine; Visit Provider Nurse Practitioner Family
DX: K21.9 Gastro-esophageal reflux disease without esophagitis (principal); I10 Essential (primary) hypertension; K76.89 Other specified diseases of liver
CPT/HCPCS: 99214

== ENCOUNTER 2023-03-18 08:08 | Outpatient (REF) | payer OTHER, SELFPAY ==
[2023-03-18] MEDS: gadobutroL 10 ML VIAL IVPUSH (08:48)
== END 2023-03-18 08:09 | disposition home or self-care (01) ==
LOC: HO.MRI 08:08
PROVIDERS: PCP Internal Medicine; Visit Provider Internal Medicine
DX: R74.8 Abnormal levels of other serum enzymes (principal); K76.89 Other specified diseases of liver
CPT/HCPCS: 74183; A9585

== ENCOUNTER 2023-04-25 06:23 | Outpatient (REF) | payer OTHER, SELFPAY ==
[2023-04-25 11:39] LABS: MANUAL DIFF FLAG NO
[2023-04-25 11:48] LABS: Basophils Percent Auto 0.8 % (0-2); Eosinophils Absolute Auto 0.2 X10*3/uL (0.0-0.4); Eosinophils Percent Auto 3.3 % (0-4); Hematocrit 43.4 % (42.0-52.0); Hemoglobin 14.5 g/dl (14.0-18.0); Imm Gran Abs Auto 0.02 X10*3/uL (0.00-0.03); Imm Gran Pct Auto 0.4 % (0.0-0.4); Lymphocytes Absolute Auto 1.8 X10*3/uL (1.2-4.9); Lymphocytes Percent Auto 36.5 % (20-40); Mean Corpuscular HGB Conc 33.4 g/dl (31.0-36.0); Mean Corpuscular Hemoglobin 29.1 pg (27.0-33.0); Mean Platelet Volume 10.8 fL (9.4-12.4); Monocytes Absolute Auto 0.3 X10*3/uL (0.1-1.2); Monocytes Percent Auto 6.2 % (2-11); Neutrophils Absolute Auto 2.5 x10*3/uL (2.0-8.3); Neutrophils Percent Auto 52.8 % (45-73); Platelet Count 262 X10*3/uL (160-400); Red Blood Count 4.99 X10*6/uL (4.60-5.80); Red Cell Distribution Width 12.8 % (11.0-16.0); White Blood Count 4.8 X10*3/uL (4.8-10.8)
[2023-04-25 12:30] LABS: Alanine Aminotransferase 31 U/L (0-40); Albumin Level 4.2 g/dL (3.5-5.0); Alkaline Phosphatase 65 U/L (39-117); Anion Gap 9 (12-20); Aspartate Amino Transferase 26 U/L (5-37); Bilirubin Direct 0.2 mg/dL (0.0-0.5); Bilirubin Total 0.5 mg/dL (0.0-1.0); Blood Urea Nitrogen 17 mg/dL (9-16); Calcium 9.2 mg/dL (8.4-10.2); Carbon Dioxide 29 mmol/L (22-29); Chloride 106 mmol/L (96-108); Cholesterol 159 mg/dL (<200); Estimated Glomerular Filt Rate > 60; Glucose Fasting 89 mg/dL (60-99); HDL Cholesterol 42 mg/dL (>40); LDL Cholesterol Calculated 95 mg/dL (<100); Potassium 3.9 mmol/L (3.3-5.1); Sodium 140 mmol/L (135-145); TSH reflex Free T4 1.61 uIU/mL (0.32-4.0); Total Protein 6.9 g/dL (6.5-8.0); Triglycerides 111 mg/dL (<150); Vitamin D 25-OH Total 60.9 ng/mL (>30)
[2023-04-25 12:40] LABS: Folate 11.1 ng/mL (> or = 4.0); Vitamin B12 536 pg/mL (200-900)
== END 2023-04-25 06:24 | disposition home or self-care (01) ==
LOC: HO.HMGCLDS 06:23
PROVIDERS: Nurse Practitioner Family; PCP Physician Assistant; Visit Provider Internal Medicine
DX: Z00.00 Encounter for general adult medical examination without abnormal findings (principal); I10 Essential (primary) hypertension; R74.8 Abnormal levels of other serum enzymes
CPT/HCPCS: 36415; 80053; 80061; 80076; 82248; 82306; 82607; 82746; 84443; 85025

== ENCOUNTER 2023-05-04 09:04 | Outpatient (AMB) | payer OTHER, SELFPAY ==
[2023-05-04 09:12] VITALS: BP 149/81; PULSE 66; BMI 34.2
--- NOTE | 2023-05-04 09:12 | MHC.OFFVIS ---
Intake Vital Signs 05/04/23 09:12 Height 5 ft 11 in Weight 245 lb BMI 34.2 BP 149/81 H Blood Pressure Location Lt brachial Position Sitting Pulse 66 Pulse Source Monitor Intake Visit Reasons: Follow up LFT's Intake Note: Patient states no GI issues currently just some bloating occasionally. Trial Manager Required: No Accompanied by: Self / Same As Patient Allergies Penicillins Allergy (Intermediate, Verified 05/04/23 09:16) Hives HPI HPI Comments History of Present Illness Details This is a 37y.o M who was referred to our office by his PCP for abnormal LFTs. 01/10/23: Pt otherwise does not report any sx to include abd pain, N,V, rash, change in bowel habits. No fam hx of chronic liver disease. He has had elevated transaminases since at least 2021. More recently this was again investigated by his PCP and prelim work up shows negative chronic hep serologies and US Abd with benign appearing cysts but no obv steatosis reported. Pt does not report using any herbal supplements or OTC/CAM. 05/04/23: In the interim, patient has had extensive workup for elevated LFTs including autoimmune hepatitis workup, alcoholic liver disease, chronic hepatitis, iron overload, celiac. He also underwent MRI for question of liver lesion seen on the ultrasound. Workup so far has returned normal. His repeat LFTs have also normalized. Today, patient does report taking creatinine supplements as well as testosterone supplements, which he stopped almost 3 months ago. [facility] Medical History GERD (gastroesophageal reflux disease) HTN (hypertension) Plantar fasciitis, bilateral Left foot pain Encounter to establish care Surgical History [place] teeth extracted History of vasectomy History of photorefractive keratectomy (PRK) Family History Other Substance use disorder Social History Housing: House Alcohol intake: current Alcohol intake frequency: a few times a month Patient Tobacco Use Status: Former Tobacco user Quit Date: 2014 e-Cigarette/Vaping Use: Never Used Second Hand Smoke Exposure: No service: Yes Current occupational status: employed Current occupation: [employer] Cognitive needs: No Hearing needs: No Vision needs: No Review of Systems Const All systems reviewed & are unremarkable except as noted in HPI and below Physical Exam Vital Signs: Last Vital Signs Pulse 66 05/04/23 09:12 BP 149/81 H 05/04/23 09:12 BMI result Body Mass Index 34.2 Gen appear: NAD HEENT: nonicteric, no cervical lymphadenopathy Chest: CTA CVS: Regular S1/S2 Abd: soft, nontender, nondistended, bowel sounds + Ext: no peripheral edema Neuro: A/Ox3, noted to move all extremities spontaneously Psych: interacting appropriately Results Reviewed Results Reviewed: Laboratory Tests 08/27/21 05/07/22 01/20/23 06:19 08:04 08:05 % Saturation Ferritin AST 55 H 30 48 H ALT 83 H 42 H 123 H Cholesterol IgG MEGAN Screen Anti-Smooth Muscle Ab Tiss Transglutamin IgA PEth 16:0/18.1 (POPEth) Linda/Kid Microsom Ab Int 01/20/23 04/25/23 08:05 06:46 % Saturation 18 Ferritin 87 AST 26 ALT 31 Cholesterol 159 IgG 775 MEGAN Screen NEGATIVE Anti-Smooth Muscle Ab <20 Tiss Transglutamin IgA <1.0 PEth 16:0/18.1 (POPEth) NEGATIVE Linda/Kid Microsom Ab Int <=20.0 Assessment & Plan Assessment & Plan (1) Hepatic cyst: Code(s): K76.89 - Other specified diseases of liver (2) Elevated liver enzymes: Code(s): R74.8 - Abnormal levels of other serum enzymes Plan LFT abnormality was likely in the setting of DILI due to consumption of exogenous testosterone and creatine supplements. THey have normalised after discontinuation of above. Remaining work up for chronic liver disease such as AIH, iron overload, wilsons, A1at etc remains negative. Has small benign hepatic cysts that do not require any surveillance at this time. Follow up as needed. Coding Level of Care Code Est Pt Level 4 (01186) Diagnoses Hepatic cyst K76.89 Elevated liver enzymes R74.8
== END 2023-05-04 10:46 | disposition home or self-care (01) ==
PROVIDERS: PCP Internal Medicine; Visit Provider Internal Medicine
DX: K76.89 Other specified diseases of liver (principal); R74.8 Abnormal levels of other serum enzymes
CPT/HCPCS: 99214

== ENCOUNTER → 2023-05-04 09:04 | Outpatient (BNVA) | payer OTHER, SELFPAY | PROVIDERS: PCP Internal Medicine; Visit Provider Internal Medicine | DX: K76.89 Other specified diseases of liver (principal); R74.8 Abnormal levels of other serum enzymes | CPT/HCPCS: 99212 ==

== ENCOUNTER 2023-07-27 14:46 | Outpatient (AMB) | payer OTHER, SELFPAY ==
--- NOTE | 2023-07-27 15:00 | MHC.PC.OV ---
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 Clinical Specialist: Not Required per policy Accompanied by: Self / Same As Patient Allergies Penicillins Allergy (Intermediate, Verified 07/31/23 15:22) Hives Medication List - Last Reconciled 07/31/23 by Santos Walker MD hydrochlorothiazide 25 mg PO DAILY 90 days omeprazole 20 mg PO DAILY Tobacco use date assessed: 07/27/23 Dental Screening Dental Screen Date: 07/27/23 Did you have a dental visit in the last 12 months?: Yes Did you have a dental problem in the last 6 months where you did not have access to dental care?: No Was dental information given to patient?: Patient has dentist HPI establish [facility] patient HPI Details 38 yr old male presents to the office to discuss his medical issues. I am assuming his care as his provider has left the practice. Patient has history of HTN and GERD. Compliant with medications and reporting no side effects. Able to function and do all ADL's. [facility] Medical History GERD (gastroesophageal reflux disease) HTN (hypertension) Plantar fasciitis, bilateral Left foot pain Encounter to establish care Surgical History [place] teeth extracted History of vasectomy History of photorefractive keratectomy (PRK) Family History Other Substance use disorder Social History Housing: House Alcohol intake: current Alcohol intake frequency: a few times a month Patient Tobacco Use Status: Former Tobacco user Quit Date: 2014 e-Cigarette/Vaping Use: Never Used Second Hand Smoke Exposure: No service: Yes Current occupational status: employed Current occupation: [employer] Cognitive needs: No Hearing needs: No Vision needs: No Questionnaire PHQ-9 Over the last 2 weeks, how often have you been bothered by any of the following problems? 1. Little interest or pleasure in doing things: not at all 2. Feeling down, depressed, or hopeless: not at all 3. Trouble falling or staying asleep, or sleeping too much: not at all 4. Feeling tired or having little energy: not at all 5. Poor appetite or overeating: not at all 6. Feeling bad about yourself - or that you are a failure or have let yourself or your family down: not at all 7. Trouble concentrating on things, such as reading the newspaper or watching television: not at all 8. Moving or speaking so slowly that other people could have noticed. Or the opposite - being so fidgety or restless that you have been moving around a lot more than usual: not at all 9. Thoughts that you would be better off or of hurting yourself in some way: not at all Total score: 0 Depression Screening Interpretation: Negative Depression Screening Done: Yes Source: Developed by Drs. Shimon Stephenson, Brittni Licona, Vivek Huff and colleagues, with an educational yamileth from [employer]. Thrive Questionnaire Date Thrive assessed: 07/27/23 I am a: Patient What is your living situation today?: I have a steady place to live Within the past 12 months, did the food you bought not last and you didn't have the money to get more?: Never true Within the past 12 months, did you worry whether your food would run out before you got money to buy more?: Never true Do you have trouble paying for medicines?: No Do you have trouble getting transportation to medical appointments?: No Do you have trouble paying your heating and electricity bill?: No Do you have trouble taking care of your child, family member or friend?: No Do you have trouble with day-to-day activities such as bathing, preparing meals, shopping, managing finances, etc.?: No Are you currently unemployed and looking for a job?: No Are you interested in more education?: No Currently or been in a relationship where the following occur: no concerns reported THRIVE Score: 0 AUDIT C Alcohol Use Questionnaire (AUDIT-C) 1. How often do you have a drink containing alcohol?: 2-4 times a month 2. How many drinks containing alcohol do you have on a typical day when you are drinking?: 1 or 2 Total Score: 2 ELIAS-7 AMB Questionnaire ELIAS-7 Date ELIAS - 7 assessed: 07/27/23 Feeling nervous, anxious, or on edge: 0 = Not at all Not being able to stop or control worryin = Not at all Worrying too much about different things: 0 = Not at all Trouble relaxin = Not at all Being so restless that it is hard to sit still: 0 = Not at all Becoming easily annoyed or irritable: 0 = Not at all Feeling afraid as if something awful might happen: 0 = Not at all Total ELIAS-7 score (0-4 normal; 5-9 mild; 10-14 moderate; 15-21 severe): 0 Source: Developed by Drs. Shimon Stephenson, Brittni Licona, Vivek Huff and colleagues, with an educational yamileth from [employer]. Physical exam (Primary Care) Vital Signs: Last Vital Signs Pulse 96 07/27/23 15:02 BP 120/72 07/27/23 15:02 Pulse Ox 96 07/27/23 15:02 Oxygen Delivery Method Room Air 07/27/23 15:02 Care Plan Goal for BP management: BP is stable. BMI result Body Mass Index 32.2 BMI Assessment/Plan discussion: High (One pound per week weight loss suggested.) BMI High, discussed plan: lifestyle, weight reduction and dietary Tobacco/Smoking Status: Tobacco use Status Tobacco use date assessed 07/27/23 07/27/23 15:07 Patient Tobacco Use Status Former Tobacco user 07/27/23 15:00 e-Cigarette/Vaping Use Never Used 07/27/23 15:00 PHQ-9: PHQ-9 Score PHQ-9: Total score 0 07/27/23 15:07 Depression Screening Interpretation: Negative Thrive Assessment: Date of Thrive Assessment Date Thrive assessed 07/27/23 07/27/23 15:07 Currently or been in a relationship where the following occur: no concerns reported Const General: cooperative and healthy appearing Nutritional Appearance: well nourished Orientation/consciousness: patient oriented x3 Limitations: no limitations HENMT Head: Yes normal to inspection Eyes General: appearance normal, both eyes and all related structures Neck Neck: Yes normal visual inspection Chest Chest palpation & inspection: normal palpation of entire chest wall Resp Effort & Inspection: normal respiratory effort Neuro General: patient oriented x3 Assessment and Plan Assessment & Plan (1) Hypertension: Code(s): I10 - Essential (primary) hypertension Plan: BP is in range. Continue current medications. (2) GERD (gastroesophageal reflux disease): Code(s): K21.9 - Gastro-esophageal reflux disease without esophagitis Plan: PPI to be continued. Coding Level of Care Code Est Pt Level 3 (24022) Diagnoses Hypertension I10 GERD (gastroesophageal reflux disease) K21.9
[2023-07-27 15:02] VITALS: BP 120/72; PULSE 96; O2SAT 96; BMI 32.2
== END 2023-07-27 15:58 | disposition home or self-care (01) ==
PROVIDERS: PCP Internal Medicine; Visit Provider Internal Medicine
DX: I10 Essential (primary) hypertension (principal); K21.9 Gastro-esophageal reflux disease without esophagitis
CPT/HCPCS: 99213

== ENCOUNTER 2024-02-08 15:11 | Outpatient (AMB) | payer OTHER, SELFPAY ==
--- NOTE | 2024-02-08 15:14 | A.OFFPC_ITS ---
Vital Signs 02/08/24 15:16 Height 5 ft 11 in Weight 234 lb 4 oz BMI 32.7 BP 110/78 Blood Pressure Location Lt brachial Position Sitting Pulse 90 Pulse Source Pulse Oximeter Pulse Oximetry (%) 97 Oxygen Delivery Method Room Air Intake Visit Reasons: 6mof\u Intake Note: Patient is here to follow up on HTN, Chronic back pain, GERD. Pt requesting for lab order. 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 Patient is at baseline state of health. Requesting a flu vaccine. Requesting fasting labs. [facility] Medical History GERD (gastroesophageal reflux disease) HTN (hypertension) Plantar fasciitis, bilateral Left foot pain Encounter to establish care Surgical History [place] teeth extracted History of vasectomy History of photorefractive keratectomy (PRK) Family History Other Substance use disorder Social History Housing: House Alcohol intake: current Alcohol intake frequency: a few times a month Patient Tobacco Use Status: Former Tobacco user e-Cigarette/Vaping Use: Never Used Second Hand Smoke Exposure: No service: Yes Current occupational status: employed Current occupation: [employer] Cognitive needs: No Hearing needs: No Vision needs: No Questionnaire Thrive Questionnaire Date Thrive assessed: 07/27/23 AUDIT C Alcohol Use Questionnaire (AUDIT-C) 2. How many drinks containing alcohol do you have on a typical day when you are drinking?: 1 or 2 3. How often do you have six or more drinks on one occasion?: Less than monthly Total Score: 1 ELIAS-7 AMB Questionnaire ELIAS-7 Date ELIAS - 7 assessed: 07/27/23 Source: Developed by Drs. Shimon Stephenson, BrittniVivek Ortiz and colleagues, with an educational yamileth from [employer]. Physical exam (Primary Care) Vital Signs: Last Vital Signs Pulse 90 02/08/24 15:16 BP 110/78 02/08/24 15:16 Pulse Ox 97 02/08/24 15:16 Oxygen Delivery Method Room Air 02/08/24 15:16 BMI result Body Mass Index 32.7 Tobacco/Smoking Status: Tobacco use Status Tobacco use date assessed 02/08/24 02/08/24 15:35 Patient Tobacco Use Status Former Tobacco user 02/08/24 15:35 e-Cigarette/Vaping Use Never Used 02/08/24 15:35 Thrive Assessment: Date of Thrive Assessment Date Thrive assessed 07/27/23 02/08/24 15:35 Const General: cooperative and healthy appearing Nutritional Appearance: well nourished Orientation/consciousness: patient oriented x3 Limitations: no limitations HENMT Head: Yes normal to inspection Eyes General: appearance normal, both eyes and all related structures Neck Neck: Yes normal visual inspection Chest Chest palpation & inspection: normal palpation of entire chest wall Resp Effort & Inspection: normal respiratory effort Neuro General: patient oriented x3 Office Procedures Flu Questionnaire Does the patient have a severe egg allergy?: No Does the patient have severe life threatening allergies?: No Does the patient have a fever or illness today?: No Has the patient ever had Guillain-Kincheloe Syndrome?: No Has the patient ever had any past reaction to a flu shot?: No Immunizations Fluarix Triv [id number] (PF) 45 mcg (15 mcg x 3)/0.5 mL IM syringe Performing Provider: Santos Walker MD [facility] Administered by: Gifty Georges RN on 02/08/24 15:43 Dose Route Admin Location Dispensed Lot Number Expiration Date [facility] Instructional Consultant 0.5 mL IM Left Deltoid 0.5 mL [id number] 09/17/24 [id number] [employer] VIS Given Date VIS Provided VIS Publication Date 02/08/24 Single Vaccine 20 Eligibility Eligibility Date Funding Source Not [facility] Eligible 02/08/24 Private Coding Level of Care Code Est Pt Level 3 (23318) Complex EM visit Add On G2211 Diagnoses Hypertension I10 GERD (gastroesophageal reflux disease) K21.9 Assessment & Plan Assessment & Plan (1) Hypertension: Code(s): I10 - Essential (primary) hypertension Category: Medical Plan: Continue medications at same dosage. (2) GERD (gastroesophageal reflux disease): Code(s): K21.9 - Gastro-esophageal reflux disease without esophagitis Category: Medical Plan: Continue medications at same dosage. Orders: Orders Influenza [id number] Immunization Today Z23 - Encounter for immunization Thyroid Stimulating Hormone Today I10 - Essential (primary) hypertension, K21.9 - Gastro-esophageal reflux disease without esophagitis Complete Blood Count no Diff Today I10 - Essential (primary) hypertension, K21.9 - Gastro-esophageal reflux disease without esophagitis Basic Metabolic Panel Today I10 - Essential (primary) hypertension, K21.9 - Gastro-esophageal reflux disease without esophagitis Lipid Panel Today I10 - Essential (primary) hypertension, K21.9 - Gastro- esophageal reflux disease without esophagitis Liver Panel Today I10 - Essential (primary) hypertension, K21.9 - Gastro- esophageal reflux disease without esophagitis UA and rflx microscopic Today I10 - Essential (primary) hypertension, K21.9 - Gastro-esophageal reflux disease without esophagitis Medications: Refilled omeprazole 20 mg PO DAILY 90 caps 1RF K21.9 - Gastro-esophageal reflux disease without esophagitis hydrochlorothiazide 25 mg PO DAILY 90 tabs 1RF 90 days I10 - Essential (primary) hypertension
[2024-02-08 15:16] VITALS: BP 110/78; PULSE 90; O2SAT 97; BMI 32.7
== END 2024-02-08 15:55 | disposition home or self-care (01) ==
PROVIDERS: PCP Internal Medicine; Visit Provider Internal Medicine
DX: I10 Essential (primary) hypertension (principal); K21.9 Gastro-esophageal reflux disease without esophagitis; Z23 Encounter for immunization

== ENCOUNTER → 2024-02-08 15:11 | Outpatient (BNVA) | payer OTHER, SELFPAY | PROVIDERS: PCP Internal Medicine; Visit Provider Internal Medicine | DX: Z23 Encounter for immunization (principal); I10 Essential (primary) hypertension; K21.9 Gastro-esophageal reflux disease without esophagitis | CPT/HCPCS: 90471; 90656; 99212 ==

== ENCOUNTER 2024-02-21 07:14 | Outpatient (REF) | payer OTHER, SELFPAY ==
[2024-02-21 11:02] LABS: Appearance Urine Clear; Color Urine Yellow; Glucose Urine UA Negative (Negative); Leukocyte Esterase Urine Negative (Negative); Nitrite Urine Negative (Negative); Specific Gravity - Urine 1.015 (1.005-1.025); Urine Blood Negative (Negative); Urine Ketones Negative (Negative); Urine Protein Negative (Neg-Trace)
[2024-02-21 11:30] LABS: Hematocrit 42.6 % (42.0-52.0); Hemoglobin 14.3 g/dl (14.0-18.0); Mean Corpuscular HGB Conc 33.6 g/dl (31.0-36.0); Mean Corpuscular Hemoglobin 29.5 pg (27.0-33.0); Platelet Count 255 X10*3/uL (160-400); Red Blood Count 4.84 X10*6/uL (4.60-5.80); Red Cell Distribution Width 13.2 % (11.0-16.0)
[2024-02-21 12:03] LABS: Alanine Aminotransferase 48 U/L (0-40); Albumin Level 4.1 g/dL (3.5-5.0); Alkaline Phosphatase 44 U/L (39-117); Anion Gap 11 (12-20); Aspartate Amino Transferase 35 U/L (5-37); Bilirubin Direct 0.2 mg/dL (0.0-0.5); Bilirubin Total 0.5 mg/dL (0.0-1.0); Blood Urea Nitrogen 17 mg/dL (9-16); Carbon Dioxide 26 mmol/L (22-29); Chloride 108 mmol/L (96-108); Cholesterol 177 mg/dL (<200); Estimated Glomerular Filt Rate > 60; Glucose Random 87 mg/dL (60-115); HDL Cholesterol 60 mg/dL (>40); LDL Cholesterol Calculated 102 mg/dL (<100); Sodium 141 mmol/L (135-145); Thyroid Stimulating Hormone 1.79 uIU/mL (0.32-4.0); Total Protein 6.5 g/dL (6.5-8.0); Triglycerides 75 mg/dL (<150)
== END 2024-02-21 07:15 | disposition home or self-care (01) ==
LOC: HO.HMGCLDS 07:14
PROVIDERS: PCP Internal Medicine; Visit Provider Internal Medicine
DX: I10 Essential (primary) hypertension (principal); K21.9 Gastro-esophageal reflux disease without esophagitis
CPT/HCPCS: 36415; 80048; 80061; 80076; 81003; 84443; 85027

== ENCOUNTER 2024-08-09 08:36 | Outpatient (AMB) | payer OTHER, SELFPAY ==
--- NOTE | 2024-08-09 08:44 | A.OFFPC_ITS ---
Vital Signs 08/09/24 08:46 Height 5 ft 11 in Weight 244 lb 2 oz BMI 34.0 BP 140/82 H Blood Pressure Location Lt brachial Position Sitting Pulse 98 Pulse Source Pulse Oximeter Temp 97.3 F Temp Source Temporal Artery Scan Pulse Oximetry (%) 95 Oxygen Delivery Method Room Air Intake Visit Reasons: 6mth f/u Intake Note: Patient is here to follow up on HTN, GERD. 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: Not Required per policy Accompanied by: Self / Same As Patient Allergies Penicillins Allergy (Intermediate, Verified 08/09/24 08:45) Hives Tobacco use date assessed: 08/09/24 Dental Screening Dental Screen Date: 08/09/24 Did you have a dental visit in the last 12 months?: Yes Did you have a dental problem in the last 6 months where you did not have access to dental care?: No Was dental information given to patient?: Patient has dentist [facility] Medical History GERD (gastroesophageal reflux disease) HTN (hypertension) Plantar fasciitis, bilateral Left foot pain Encounter to establish care Surgical History [place] teeth extracted History of vasectomy History of photorefractive keratectomy (PRK) Family History Other Substance use disorder Social History Housing: House Alcohol intake: current Alcohol intake frequency: a few times a month Patient Tobacco Use Status: Former Tobacco user e-Cigarette/Vaping Use: Never Used Second Hand Smoke Exposure: Yes service: Yes Current occupational status: employed Current occupation: [employer] Cognitive needs: No Hearing needs: No Vision needs: No Questionnaire PHQ-9 Over the last 2 weeks, how often have you been bothered by any of the following problems? 1. Little interest or pleasure in doing things: not at all 2. Feeling down, depressed, or hopeless: not at all 3. Trouble falling or staying asleep, or sleeping too much: not at all 4. Feeling tired or having little energy: not at all 5. Poor appetite or overeating: not at all 6. Feeling bad about yourself - or that you are a failure or have let yourself or your family down: not at all 7. Trouble concentrating on things, such as reading the newspaper or watching television: not at all 8. Moving or speaking so slowly that other people could have noticed. Or the opposite - being so fidgety or restless that you have been moving around a lot more than usual: not at all 9. Thoughts that you would be better off or of hurting yourself in some way: not at all Total score: 0 Depression Screening Interpretation: Negative Depression Screening Done: Yes Source: Developed by Drs. Shimon Stephenson, Brittni Licona, Vivek Huff and colleagues, with an educational yamileth from [employer]. Thrive Questionnaire Date Thrive assessed: 08/02/24 I am a: Patient What is your living situation today?: I have a steady place to live Within the past 12 months, did the food you bought not last and you didn't have the money to get more?: Never true Within the past 12 months, did you worry whether your food would run out before you got money to buy more?: Never true Do you have trouble paying for medicines?: No Do you have trouble getting transportation to medical appointments?: No Do you have trouble paying your heating and electricity bill?: No Do you have trouble taking care of your child, family member or friend?: No Do you have trouble with day-to-day activities such as bathing, preparing meals, shopping, managing finances, etc.?: No Are you currently unemployed and looking for a job?: No Are you interested in more education?: No Please select the resources that you would like help with: None Currently or been in a relationship where the following occur: No concerns reported THRIVE Score: 0 AUDIT C Alcohol Use Questionnaire (AUDIT-C) 1. How often do you have a drink containing alcohol?: 2-4 times a month 2. How many drinks containing alcohol do you have on a typical day when you are drinking?: 3 or 4 3. How often do you have six or more drinks on one occasion?: Less than monthly Total Score: 4 ELIAS-7 AMB Questionnaire ELIAS-7 Date ELIAS - 7 assessed: 08/09/24 Feeling nervous, anxious, or on edge: 0 = Not at all Not being able to stop or control worryin = Not at all Worrying too much about different things: 0 = Not at all Trouble relaxin = Not at all Being so restless that it is hard to sit still: 0 = Not at all Becoming easily annoyed or irritable: 0 = Not at all Feeling afraid as if something awful might happen: 0 = Not at all Total ELIAS-7 score (0-4 normal; 5-9 mild; 10-14 moderate; 15-21 severe): 0 Source: Developed by Drs. Shimon Stephenson, Brittni Licona, Vivek Huff and colleagues, with an educational yamileth from [employer]. Physical exam (Primary Care) Vital Signs: Last Vital Signs Temp 97.3 F 08/09/24 08:46 Pulse 98 08/09/24 08:46 BP 140/82 H 08/09/24 08:46 Pulse Ox 95 08/09/24 08:46 Oxygen Delivery Method Room Air 08/09/24 08:46 BMI result Body Mass Index 34.0 Tobacco/Smoking Status: Tobacco use Status Tobacco use date assessed 08/09/24 08/09/24 08:50 Patient Tobacco Use Status Former Tobacco user 08/09/24 08:50 e-Cigarette/Vaping Use Never Used 08/09/24 08:50 PHQ-9: PHQ-9 Score PHQ-9: Total score 0 08/09/24 08:50 Depression Screening Interpretation: Negative Thrive Assessment: Date of Thrive Assessment Date Thrive assessed 08/02/24 08/09/24 08:50 Currently or been in a relationship where the following occur: No concerns reported Coding Level of Care Code Est Pt Level 4 (27616) Complex EM visit Add On G2211 Diagnoses Hypertension I10 Assessment & Plan Assessment & Plan (1) Hypertension: Code(s): I10 - Essential (primary) hypertension Category: Medical Plan: BP is in range. Continue current medications. Plan History of Present Illness The patient is a 39-year-old male presenting with routine health maintenance. Previous blood work done in February was reported as normal, and there have been no health concerns since then. The patient is compliant with current medications and does not require any refills. There are no specific symptoms or health issues identified in the conversation, indicating a stable health state. 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 - Review of Systems - General: Denies any health concerns or changes. - Gastrointestinal: Denies any pain in the stomach area. Physical Exam General: Cooperative and healthy appearing Nutritional Appearance: Well nourished Orientation/consciousness: Patient oriented x3 Limitations: No limitations Head: Normal to inspection General: Appearance normal, both eyes and all related structures Neck: Normal visual inspection Chest: Normal palpation of entire chest wall Respiratory: Deep breath. Out. Deep breath. Out. Deep breath. Out. Deep breath. Out. Deep breath. Out. Deep breath. Out. Deep breath. Out. Deep breath. Out. Deep breath. Out. Deep breath. Out. Deep breath. Out. Deep ormal respiratory effort Neurology: Patient oriented x3 Results Plan 1. Routine Health Maintenance - Blood work to be repeated biannually for health monitoring. - Continue with the existing medication regimen, with no changes required at this time. Discussion Notes During the visit, I discussed the patient's routine health maintenance, emphasizing the importance of continuing with current medication and having periodic blood work every six months to monitor his health. The patient agreed to this plan and was informed about the absence of any significant findings or concerns from the most recent examination. There were no new symptoms or complaints to address during the discussion, and the patient expressed understanding and agreement with the plan. Patient Instructions - Continue taking your current medications as prescribed. - Schedule and complete blood work in six months for routine health monitoring. - Reach out if any new symptoms arise or if you have any health concerns. Medications: Refilled hydrochlorothiazide 25 mg PO DAILY 90 tabs 1RF 90 days I10 - Essential (primary) hypertension
[2024-08-09 08:46] VITALS: BP 140/82; PULSE 98; TEMP 36.3; O2SAT 95; BMI 34.0
--- OUTSIDE RECORDS SUMMARY | 2024-08-09 08:48 | XMS_ITS | Continuity of Care Document ---
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 It does not include entries that were removed or entered in error. 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 Gastro-esophageal reflux disease without esophagitis Active [address] [facility] HYPERTENSION (SYSTEMIC) Inactive [address] [facility] NON-INFECTIOUS GASTROENTERITIS Inactive [address] [facility] PSEUDOFOLLICULITIS BARBAE Inactive [address] [facility] visit for: occupational health / fitness exam Inactive [address] [facility] CHLAMYDIAL INFECTIONS Inactive [address] [facility] EPIDIDYMITIS Inactive [address] [facility] visit for: issue repeat prescription for medication Inactive [address] [facility] INGROWING NAIL Inactive [address] [facility] Essential (primary) hypertension Inactive [address] [facility] visit for: services physical Inactive [address] [facility] Vasectomy status Active Condition [facility] Regular astigmatism, left eye Active Condition [facility] Myopia, right eye Active [facility] Peripheral opacity of cornea, right eye Active [facility] visit for: postsurgical exam Inactive Condition [facility] POSTSURGICAL STATE OF EYE AND ADNEXA Inactive Condition [facility] Aftercare Following Surgery Of Sense Organs Inactive Condition [facility] POSTSURGICAL STATE OF EYE AND ADNEXA BOTH Inactive [facility] visit for: preoperative exam Inactive [facility] Patient Education - Injury Prevention Inactive [facility] RETINAL DEFECTS WITHOUT DETACHMENT Active [facility] visit for: screening exam eye disorders Inactive Condition [facility] ASTIGMATISM - REGULAR Inactive Condition [facility] ASTIGMATISM Inactive [facility] REFRACTIVE ERROR - MYOPIA Inactive [facility] visit for: services physical pre-deployment Inactive [facility] Need For Prophylactic Antibiotics Inactive [facility] Patient Education Inactive [facility] Patient Education Dietary Changing Eating Habits Inactive [facility] Inquiry And Counseling: Contraceptive Practices Inactive [facility] Anticipatory Guidance: Unsafe Sexual Practices Inactive [facility] visit for: services physical accession Inactive Condition DoD visit for: ears / hearing exam Inactive Condition DoD reactions to penicillins Active Condition [facility] Observation For Suspected Condition Inactive Condition [facility] Medications Combined list of outpatient medications from Department of Defense and Veterans Affairs facilities.Medications provided include 1) outpatient medications from the last 15 months, and 2) patient-reported medications. Medication Details Route Status Patient Instructions Prescription Expires Prescription Number Last Dispense Date Ordering Provider Order Date Order Qty Source hydroCHLORO thiazide 25 mg oral tablet hydroCHL OROthiaz estrella 25 mg oral tablet Start Date: 12/05/16 Stop Date: 05/30/24 Status: Complete d Repeat number: 1 Complet ed 05/31/20242024 No Facilit y Access hydroCHLORO thiazide 25 mg oral tablet 1 tab(s), Oral, Daily, for blood pressure , # 90 tab(s), 3 total refill(s ), Maintena nce, Other Reason (Rx) Oral (given by mouth) Ordered 2020 90.0 0029[facility] hydroCHLORO thiazide 25 mg tablet 25 mg, Oral, Daily, # 90 EA, 3 total refill(s ), Hard Stop Oral (given by mouth) Complet ed 02/16/2022 1 2021 90.0 Ambulat ory Pharmac y Hydrocortis one with Aloe 1% topical cream See Instruct ions, AAA after shaving PRN, # 45 g, 0 total refill(s ), Mainfranklin kirbye, Pharmacy : [facility] Complet ed 05/31/20242024 45.0 0029R[facility]O [facility] loratadine 10 mg oral tablet loratadi ne 10 mg oral tablet Start Date: 12/05/16 Stop Date: 05/30/24 Status: Complete d Repeat number: 1 Complet ed 05/31/20242024 No Facilit y Access meloxicam 15 mg tablet 15 mg, Oral, Daily, # 90 EA, 0 total refill(s ), Hard Stop Oral (given by mouth) Complet ed 01/17/2022 2021 90.0 Ambulat ory Pharmac y Mobic 15 mg oral tablet 1 tab(s), Oral, Daily, # 90 tab(s), 0 total refill(s ), Maintena nce, Other Reason (Rx) Oral (given by mouth) Discont inued 01/19/20212020 90.0 0029[facility] OMEPRAZOLE (omeprazole ), 20 MG, CAPSULE DR, ORAL, [employer], 1000 ea. BOTTLE Active [id number] 2023 90 Pharmac y Data Trans[employer] tion Service Facilit y omeprazole 20 mg oral delayed release tablet 1 tab(s), Oral, BID, before a meal, # 42 tab(s), 3 total refill(s ), Maintena nce, Other Reason (Rx) Oral (given by mouth) Complet ed 05/31/2024 2 2024 42.0 0701C[facility]N [facility] tretinoin 0.025% topical gel 1 appl(s), Topical, every day at bedtime, # 30 g, 0 total refill(s ), Maintena nce, Other Reason (Rx) Topica l (on the skin) Ordered 2020 30.0 0029R-O [facility] tretinoin 0.05% topical cream 1 appl(s), Topical, every day at bedtime, # 60 g, 0 total refill(s ), Maintena nce, Pharmacy : [facility] Topica l (on the skin) Complet ed 05/31/20242024 60.0 0029R[facility]O [facility] Allergies, Adverse Reactions, Alerts Combined list of allergies from Department of Defense and Veterans Affairs facilities. It does not include entries that were removed or entered in error. Substance Category Reaction Severity Reaction type Status Date Reported Comments Source Penicillins Drug allergy (disorder) Urticaria active 9 Azucena [facility] penicillins Propensity to adverse reactions to substance Urticaria Active 9 Unknown Organizat ion Immunizations Combined list of available immunizations from the Department of Defense and Veterans Affairs facilities. Immunization Series Date Given Administered By Site Reaction Lot Number CVX Code Drug Area Supervisor Status Comments Source typhoid Vi capsular polysaccharid e vaccine 1 2018 [id number] Sanofi Pasteur ([facility]) complet ed typhoid Vi capsular polysacch aride vaccine DoD influenza, injectable, quadrivalent, contains preservative 0 2017 UNK 158 Unknown (UNK) comple t ed influenza , injectabl e, quadrival ent, contains preservat abdiaziz DoD influenza, injectable, quadrivalent, contains preservative 0 2017 [id number] [facility] ([facility]) complet ed influenza , injectabl e, quadrival ent, contains preservat abdiaziz DoD measles and rubella virus vaccine 0 2016 04 () Not Given measles and rubella virus vaccine DoD typhoid Vi capsular polysaccharid e vac 2016 zzLef t Arm [id number] sanofi pasteur complet ed typhoid Vi capsular polysacch aride vac 08/19/16 Given 1656H-N [facility] typhoid Vi capsular polysaccharid e vaccine 1 2016 TOLU SOSA [id number] 101 Sanofi Pasteur ([facility]) complet ed typhoid Vi capsular polysacch aride vaccine DoD influenza, injectable, quadrivalent- pf 2015 zzLef t Arm [id number] 150 GlaxoSmithKli ne complet ed influenza , injectabl e, quadrival ent-pf 02/09/16 Given 1656H-N [facility] influenza, seasonal, injectable-pf 2015 [id number] 140 GlaxoSmithKli ne complet ed influenza , seasonal, injectabl e-pf 02/09/16 Given 1656H-N [facility] Influenza, seasonal, injectable, preservative free 0 2015 [id number] 140 Smithine (SKB) complet ed Influenza , seasonal, injectabl e, preservat abdiaziz free DoD Influenza, injectable, quadrivalent, preservative free 1 2015 FEMI MATT T44G9 150 Smithine (SKB) complet ed Influenza , injectabl e, quadrival ent, preservat abdiaziz free DoD influenza,tri valent, recombinant, inj-pf 2015 zzLef t Arm [id number] 155 [employer] Behring complet ed influenza ,trivalen t, recombina nt, inj-pf 04/03/15 Given 1656H-N [facility] Seasonal, trivalent, recombinant, injectable influenza vaccine, preservative free [id number] [facility] [employer] ([facility]) complet ed Seasonal, trivalent , recombina nt, injectabl e influenza vaccine, preservat abdiaziz free DoD influenza, seasonal, injectable 2013 [id number] 141 Unknown complet ed influenza , seasonal, injectabl e 01/18/14 Given [facility]6-[facility] [place] Influenza, seasonal, injectable 0 2013 G34A4 141 Other (OTH) complet ed Influenza , seasonal, injectabl e DoD influenza, seasonal, injectable 2013 G34A4 141 Unknown complet ed influenza , seasonal, injectabl e 01/11/14 Given [facility] [place] Influenza, seasonal, injectable 0 2013 G34A4 141 Other (OTH) complet ed Influenza , seasonal, injectabl e DoD typhoid Vi capsular polysaccharid e vac 2013 UNK 101 Unknown complet ed typhoid Vi capsular polysacch aride vac 05/14/13 Given [facility] typhoid Vi capsular polysaccharid e vaccine 1 2013 UNK 101 Unknown (UNK) comple t ed typhoid Vi capsular polysacch aride vaccine DoD influenza, seasonal, injectable 2012 UNK 141 Unknown complet ed influenza , seasonal, injectabl e 12/13/12 Given [facility] Influenza, seasonal, injectable 0 2012 UNK 141 Unknown (UNK) comple t ed Influenza , seasonal, injectabl e DoD influenza, seasonal, injectable 2011 [id number] 141 Unknown complet ed influenza , seasonal, injectabl e 12/21/11 Given [facility] [place] Influenza, seasonal, injectable 1 2011 [id number] 141 Other (OTH) complet ed Influenza , seasonal, injectabl e DoD hepatitis A-hepatitis B vaccine 2011 UNK 104 Unknown complet ed hepatitis A-hepatit is B vaccine 08/03/11 Given [facility] hepatitis A and hepatitis B vaccine 3 2011 UNK 104 Unknown (UNK) comple t ed hepatitis A and hepatitis B vaccine DoD typhoid Vi capsular polysaccharid e vac 2011 UNK 101 Unknown complet ed typhoid Vi capsular polysacch aride vac 05/27/11 Given 1656H-N [facility] [place] typhoid Vi capsular polysaccharid e vaccine 1 2011 UNK 101 Unknown (UNK) comple t ed typhoid Vi capsular polysacch aride vaccine DoD influenza, seasonal, injectable 2010 [id number] 141 Unknown complet ed influenza , seasonal, injectabl e 01/12/11 Given 1656H[facility]N [facility] [place] Influenza, seasonal, injectable 0 2010 [id number] 141 Other (OTH) complet ed Influenza , seasonal, injectabl e DoD influenza virus vaccine,split 2010 UNK 15 Unknown complet ed influenza virus vaccine,s plit 01/11/11 Given 1656H-N [facility] influenza virus vaccine, split virus (incl. purified surface antigen)-reti red CODE 0 2010 UNK 15 Unknown (UNK) comple t ed influenza virus vaccine, split virus (incl. purified surface antigen)- retired CODE DoD influenza virus vaccine,split 2009 UNK 15 Unknown complet ed influenza virus vaccine,s plit 12/10/09 Given 1656H-N [facility] influenza virus vaccine, split virus (incl. purified surface antigen)-reti red CODE 0 2009 UNK 15 Unknown (UNK) comple t ed influenza virus vaccine, split virus (incl. purified surface antigen)- retired CODE DoD hepatitis A and hepatitis B vaccine 2 2009 104 () Not Given hepatitis A and hepatitis B vaccine DoD measles/mumps /rubella virus vaccine 2009 UNK 03 Unknown complet ed measles/m umps/rube lla virus vaccine 09/24/09 Given 1656H-N [facility] measles, mumps and rubella virus vaccine 0 2009 UNK 03 Unknown (UNK) comple t ed measles, mumps and rubella virus vaccine [facility] typhoid vaccine, unspecified formulation 2009 [id number] 91 [employer] complet ed typhoid vaccine, unspecifi ed formulati on 04/18/09 Given 1656H-N [facility] [place] typhoid Vi capsular polysaccharid e vac 2009 UNKNOWN 101 Unknown complet ed typhoid Vi capsular polysacch aride vac 04/18/09 Given 1656H-N [facility] [place] yellow fever vaccine 2009 [id number] 37 [employer] complet ed yellow fever vaccine 04/18/09 Given 1656H-N [facility] [place] poliovirus vaccine, inactivated 2009 [id number] 10 Med[employer] Inc comple t ed polioviru s vaccine, inactivat ed 04/18/09 Given 1656H-N [facility] poliovirus vaccine, inactivated 0 2009 D0304 10 [employer] (MED) complet ed polioviru s vaccine, inactivat ed DoD yellow fever vaccine 0 2009 [id number] 37 [employer]gent [employer] [employer] [place] (MIP) complet ed yellow fever vaccine DoD typhoid vaccine, unspecified formulation 5 2009 [id number] 91 Susan (WAL) complet ed typhoid vaccine, unspecifi ed formulati on DoD typhoid Vi capsular polysaccharid e vaccine 1 2009 UNKNOWN 101 Unknown (UNK) comple t ed typhoid Vi capsular polysacch aride vaccine DoD Novel influenza-H1N 1-09, injectable 2008 [id number] 1 127 complet ed Novel influenza -G9M2-78, injectabl e 03/11/09 Given 1656H-N [facility] tetanus, diphtheria, acellular pertu is 2008 [id number] 115 sanofi pasteur complet ed tetanus, diphtheri a, acellular pertussis 03/11/09 Given 1656H[facility] influenza virus vaccine, live 2008 [id number] 111 Unknown complet ed influenza virus vaccine, live 03/11/09 Given 1656H[facility] meningococcal A,C,Y,W-135 (MCV4P) 2008 [id number] 114 [employer] complet ed meningoco ccal A,C,Y,W-1 35 (MCV4P) 03/11/09 Given 1656H-N [facility] meningococcal polysaccharid e (MPSV4) 2008 UNKNOWN 32 Unknown complet ed meningoco ccal polysacch aride (MPSV4) 03/11/09 Given 1656H-N [facility] meningococcal polysaccharid e vaccine (MPSV4) 1 2008 UNKNOWN 32 Unknown (UNK) comple t ed meningoco ccal polysacch aride vaccine (MPSV4) DoD influenza virus vaccine, live, attenuated, for intranasal use 0 2008 [id number] 111 Unknown (UNK) comple t ed influenza virus vaccine, live, attenuate d, for intranasa l use DoD meningococcal polysaccharid e (groups A, C, Y and W-135) diphtheria toxoid conjugate vaccine (MCV4P) 0 2008 [id number] 114 [employer] (AVB) complet ed meningoco ccal polysacch aride (groups A, C, Y and W-135) diphtheri a toxoid conjugate vaccine (MCV4P) DoD tetanus toxoid, reduced diphtheria toxoid, and acellular pertu is vaccine, adsorbed 0 2008 [id number] 115 Sanofi Pasteur (PMC) complet ed tetanus toxoid, reduced diphtheri a toxoid, and acellular pertussis vaccine, adsorbed DoD Novel influenza-H1N 1-09, injectable 0 2008 [id number] 1 127 (AG) complet ed Novel influenza -U5Q8-47, injectabl e DoD hepatitis B vaccine, pediatric or pediatric/ado lescent dosage 0 2008 08 () Not Given hepatitis B vaccine, pediatric or pediatric /adolesce nt dosage DoD Results Combined list of recent chemistry, hematology and other laboratory results from Department of Defense and Veterans Affairs, ranging from 15 months to all on record, depending upon the facility. Order Name Results Value Reference Range Date Interpretation Specimen Comments Source Infectious Disease HIV-1/2 AG/AB 4G CDD LC NEGATIVE NEGATIVE 05/15 Result Comment: Performed At: 1 [facility] [address] [facility] [address] [place] [address] RENATA NASH PHD Ph:[phone] 0100[facility] [place] Infectious Disease Source of Test.LC Gen Force Test (05/15/24 12:29 PM) 05/15 N 0A-[facility] [place] Encounters Combined list of: 1) Encounters from Department of Veterans Affairs facilities going backup to the last 18 months, not all VA inpatient encounters are included; 2) Encounters from the Department of Defense facilities going backup to 280 months. Location Location Details Encounter Type Encounter Number Reason For Visit Attending Provider ADM Date DC Date Status Disposition Source [facility](Me d. Assessmen t/1523) OUTPATIENT [id number] JIM PIERCE 03/10 Released w/o Limitations [facility]( Med. Assessm ent/152 3) [facility](Au diology [facility] 1523) OUTPATIENT [id number] AKHIL CALVO 03/10 Released w/o Limitations [facility]( Audiolo gy [facility] 1523) [facility](Op tometry [facility] 1523) OUTPATIENT [id number] recruit screen TITUS LEACH 03/10 Released w/o Limitations [facility]( Optomet ry [facility] 1523) [facility](We [facility] Male) OUTPATIENT [id number] JEANE MANCIA 03/11 Released w/o Limitations [facility]( [facility] OUTPATIENT [id number] PABLO GARSIA 04/22 Released w/o Limitations [facility]( Med. Assessm ent/152 3) [facility](Mi litary Sick Call [facility] 237) OUTPATIENT [id number] JESÚS FALLON 05/21 Released w/o Limitations [facility]( Militar y Sick Call [facility] 237) [facility] ) OUTPATIENT [id number] REE/BMR NAM TYLER 02/10 Released w/o Limitations [facility] [place] Optomet ry) [facility] ) OUTPATIENT [id number] ree,bmr MICHELLE HENNING 02/06 Released w/o Limitations [facility] [place] Optomet ry) [facility] ) OUTPATIENT [id number] CL CHECK/D FE MICHELLE HENNING 02/21 Released w/o Limitations [facility] [place] Optomet ry) [facility] HC Program) OUTPATIENT [id number] Notes Entered by: JOSH HARRISON 23 Feb 2012 0943 ------- ------- ------- ------- -- HEARING TEST CA SMITH 02/22 Released w/o Limitations [facility](N [facility] HC Program ) [facility]) OUTPATIENT [id number] PRELIM DRY ONLY REMIGIO BLUE 06/09 Released w/o Limitations [facility]) [facility]) OUTPATIENT [id number] pre-op wet REMIGIO BLUE 06/19 Released w/o Limitations [facility]) [facility](SD Ophthalmo logy Part) OUTPATIENT [id number] vf 24-2 livia/sw ap, rnfl oct, disc photos: hand carry results to [facility] NORIS BACA 06/20 Released w/o Limitations [facility](S D Ophthal mology Part) [facility]) OUTPATIENT [id number] stabili ty check: rpt U/S GISEL aguiar for TID's, review Glaucom a w/u AZUCENA SHEFFIELD 06/26 Released w/o Limitations [facility]) [facility]) OUTPATIENT [id number] prk consent and sle w/JIM Potter 08/16 Released w/o Limitations [facility]) [facility]) OUTPATIENT [id number] prk surgery JIM FIGUEROA 08/28 Released w/o Limitations [facility]) [facility]) OUTPATIENT [id number] 7dpop prk ns AZUCENA SHEFFIELD 09/04 Released w/o Limitations [facility]) [facility]) TELE CONSULT [id number] Notes Entered by: Bety RAYGOZA 05 Sep 2012 1246 ------- ------- ------- ------- -- 1 day post op PRK JIM FIGUEROA 09/05 [facility]) [facility]) OUTPATIENT [id number] 4wks.REMIGIO Hwang 09/29 Released w/o Limitations [facility]) [facility]) OUTPATIENT [id number] 3-mon prk AZUCENA Marin 12/21 Released w/o Limitations [facility]) [facility](SD HC Program MOHCAT 1) OUTPATIENT [id number] Notes Entered by: Franklin LUIS 22 Feb 2014 0839 ------- ------- ------- ------- -- Hearing Test CHRIS MAZARIEGOS AM 02/22 Released w/o Limitations [facility](S D HC Program MOHCAT 1) [facility] Gold) OUTPATIENT [id number] Notes Entered by: CHINA MIRANDA 16 May 2014 1209 ------- ------- ------- ------- -- HEMA OSEGUERA 05/16 Released w/o Limitations [facility](S ubase Family Medicin e Gold) [facility](Sub [facility] Gold) OUTPATIENT [id number] f/u on 10 day B/P check from HEMA OSEGUERA 05/27 Released w/o Limitations [facility](S ubase Family Medicin e Gold) [facility](Sub [facility]) OUTPATIENT [id number] Notes Entered by: TIMOTHY HILLS 13 Jun 2014 0739 ------- ------- ------- ------- -- lead/ca dmium/n ickel/m ang/hcp /vib/me shaunna juan carlos JUVENCIO RAD D 06/13 Released w/o Limitations [facility](S Hear Con [facility]) OUTPATIENT [id number] Notes Entered by: CODI NICHOLAS 13 Jun 2014 0839 ------- ------- ------- ------- -- HCP CODI NICHOLAS 06/13 Released w/o Limitations [facility](S Hear Con [facility]) [facility](S Hear Con EC) OUTPATIENT [id number] Notes Entered by: CODI NICHOLAS 18 Jun 2014 1303 ------- ------- ------- ------- -- audio follow up CODI NICHOLAS 06/18 Released w/o Limitations [facility]S Hear Con [facility]) [facility](Sub ase Occupatio [facility]) OUTPATIENT [id number] Notes Entered by: YU POMPA 09 Jul 2014 0813 ------- ------- ------- ------- -- f/u re cadmium labs MIGNON POMPA 07/09 Released w/o Limitations [facility](S ubase Occupat [facility]) [facility](Sub ase Family Medicine Gold) OUTPATIENT [id number] 3 month b/p f/u HEMA CABELLO 09/11 Released w/o Limitations [facility](S ubase Family Medicin e Gold) [facility](Sub ase Family Medicine Gold) OUTPATIENT [id number] BP F/U HEMA CABELLO 09/25 Released w/o Limitations [facility](S ubase Family Medicin e Gold) [facility](Sub ase Family Medicine Gold) OUTPATIENT [id number] F/U HEMA AGUILERA 10/04 Released w/o Limitations [facility](S ubase Family Medicin e Gold) [facility](Sub ase Family Medicine Gold) OUTPATIENT [id number] ASF SYLVIEI LINUS MANNING 11/06 Released w/o Limitations [facility](S ubase Family Medicin e Gold) [facility](Sub ase Occupatio [facility]) OUTPATIENT [id number] TIMOTHY Booth 11/19 Released w/o Limitations [facility]) [facility](Sub ase Occupatio [facility]) OUTPATIENT [id number] Notes Entered by: TIMOTHY HILLS 02 Dec 2014 1540 ------- ------- ------- ------- -- 6 month MIGNON Le 12/02 Released w/o Limitations [facility]) [facility](St. [facility]) OUTPATIENT [id number] Notes Entered by: ANTHONY GIBSON 21 Jan 2015 0706 ------- ------- ------- ------- -- RED EYE-lat e entry [facility]SE 01/21 Released w/o Limitations [facility]) [facility]([facility]) OUTPATIENT [id number] R eye concern HEMA CABELLO 01/21 Immediate Referral [facility] Family Medicin e Gold) [facility]) OUTPATIENT [id number] Notes Entered by: ANTHONY GIBSON 22 Jan 2015 0958 ------- ------- ------- ------- -- F/U RED EYE [facility] 01/22 Released w/o Limitations [facility]) [facility]([facility]) OUTPATIENT [id number] Notes Entered by: ANTHONY GIBSON 23 Jan 2015 1255 ------- ------- ------- ------- -- RED EYE TAVOSHANNONLINNETTECarmela Espitia 01/23 Released w/o Limitations [facility]) [facility]) OUTPATIENT [id number] Notes Entered by: Javier MARTIN 14 May 2015 1400 ------- ------- ------- ------- -- HEMA OSEGUERA 05/14 Released w/o Limitations [facility] Family Medicin e Gold) [facility]) OUTPATIENT [id number] BP LOG f/u 5day HEMA CABELLO 05/16 Released w/o Limitations [facility] Family Medicin e Gold) [facility]) OUTPATIENT [id number] Notes Entered by: KARIN ALEJANDRO 20 May 2015 1248 ------- ------- ------- ------- -- HEMA Phelps 05/19 Released w/o Limitations [facility]) [facility]) OUTPATIENT [id number] Notes Entered by: LUIS CARLOS DUARTE 17 Jun 2015 0723 ------- ------- ------- ------- -- RAD KENT 06/16 Released w/o Limitations [facility]S [facility] Occupat [facility]) [facility]([facility]) OUTPATIENT [id number] L KNEE PN X1M HEMA KHAN 07/10 Released w/o Limitations [facility]) [facility](S Physical Therapy) OUTPATIENT [id number] Pain in left knee KATHLEEN MENESES 07/21 Released w/o Limitations [facility](S Physica l Therapy ) [facility](Sub [facility] Family [facility] Gold) OUTPATIENT [id number] r heel pain x2w HEMA CABELLO 12/01 Released with Work/Duty Limitations [facility] Family Medicin [facility] Gold) [facility](Sub ase Occupatio nal Health [facility]) OUTPATIENT [id number] [facility]/6 YULIET DAVIS 12/15 Released w/o Limitations [facility] Occupat ional Health [facility]) [facility](Sub ase Occupatio nal [facility]) OUTPATIENT [id number] Notes Entered by: BRIGITTE DAVIS 30 Dec 2015 1329 ------- ------- ------- ------- -- REVIEW LEAD LABS MIGNON POMPA 12/29 Released w/o Limitations [facility] Occupat ional Health [facility]) [facility](Sub [facility] Family Medicine Gold) OUTPATIENT [id number] swollen right eye HEMA CABELLO 01/06 Released with Work/Duty Limitations [facility] Family Medicin [facility] Gold) [facility](Sub [facility] Family Medicine Gold) OUTPATIENT [id number] f/u right eye HEMA CABELLO 01/06 Released w/o Limitations [facility]) [facility](Sub ase Immunizat ions) OUTPATIENT [id number] Notes Entered by: FEMI MATT 09 Feb 2016 1252 ------- ------- ------- ------- -- FEMI MARROQUIN 02/08 Released w/o Limitations [facility]) [facility] [place]) OUTPATIENT [id number] cold sx x 3 wks HEMA CABELLO 03/31 Released w/o Limitations [facility]) [facility] [place] OUTPATIENT [id number] Notes Entered by: BRIGITTE DAVIS 06 May 2016 0837 ------- ------- ------- ------- -- ANNUAL HCP AUDIO YULIET DAVIS 05/06 Released w/o Limitations [facility]) [facility](Sub ase Occupatio nal Health - [facility]) OUTPATIENT [id number] JS/KELVIN /172/21 0/503/5 08/602 HEMA BANSAL 05/06 Released w/o Limitations [facility] Occupat ional Health - [facility]) [facility](Sub ase Occupatio nal Health - [facility]) OUTPATIENT [id number] Luz Elena/161 /124 HEMA BANSAL 06/01 Released w/o Limitations [facility] Occupat ional Health - [facility]) [facility](Sub ase Family Medicine Gold) OUTPATIENT [id number] [facility] [facility] [place] f/u ankle injury Jun 04 during bhumika ball during cmd PT HAN AVELAR 06/04 Released w/o Limitations [facility] Gold) [facility](Sub ase Family Medicine Gold) TELE CONSULT [id number] Notes Entered by: Carlos MANZANARES 16 Jun 2016 1433 ------- ------- ------- ------- -- med renewal HEMA CABELLO 06/16 [facility]) OUT[facility]IENT [id number] BLOOD PRESSHEMA [place] 07/27 Released w/o Limitations [facility] Family Medicin [facility] Gold) [facility](Sub ase Immunizat ions) OUTPATIENT [id number] Notes Entered by: Lakshmi SOSA 19 Aug 2016 0710 ------- ------- ------- ------- -- TYPHOID TOLU SOSA 08/19 Released w/o Limitations [facility] Immuniz ations) [facility](Sub [facility]se Optometry Clinic) OUTPATIENT [id number] eye exam [facility] 08/19 Released w/o Limitations [facility]) [facility](B Family Medicine) OUTPATIENT [id number] [facility] er for DOMINIQUE Penaloza 08/24 Released w/o Limitations [facility](B Family Medicin e) [facility](Sub ase Occupatio [facility]) TELE CONSULT [id number] Notes Entered by: YU POMPA N 03 Sep 2016 0934 ------- ------- ------- ------- -- f/u re lab results #124 MIGNON POMPA 09/03 Referred for Appointment [facility] ub[facility] Occupat [facility]) [facility](SUB ASE Physical Exam) OUTPATIENT [id number] oversea s REJI Freeman 09/03 Released w/o Limitations [facility](S UBASE Physica l Exam) [facility](Sub ase Family Medicine Gold) OUTPATIENT [id number] HEMA ARANGO 09/07 Released w/o Limitations [facility] Family Medicin e Gold) [facility](B Family Medicine) OUTPATIENT [id number] vas procedu re MASK DESIGNERAZUCENA 09/17 Released w/o Limitations [facility](B Family Medicin e) [facility](Sub ase Family Medicine Gold) OUTPATIENT [id number] 31y r shoulde r cx x1d HEMA CABELLO 10/01 Released w/o Limitations [facility] Family Medicin e Gold) [facility](Sub ase Family Medicine Gold) OUTPATIENT [id number] F/U VASECTO MY PROC HAVING CX ABOUT STITCHE S NOT LEAVING HEMA CABELLO 11/02 Released w/o Limitations [facility] Family Medicin e Gold) [facility](Sub ase Occupatio Critical access hospital) OUTPATIENT [id number] Notes Entered by: YU POMPA 26 Nov 2016 1154 ------- ------- ------- ------- -- f/u re lab results #124 MIGNON POMPA 11/26 Released w/o Limitations [facility] ub[facility] Occupat ional Health [facility]) [facility](Sub ase Occupatio Critical access hospital) OUTPATIENT [id number] [facility] [place] [facility] [place]6 YULIET DAVIS 12/01 Released w/o Limitations [facility](Sub ase Family Medicine Gold) OUTPATIENT [id number] f/u beta 2 protien levels HEMA CABELLO 12/01 Released w/o Limitations [facility] Family Medicin e Gold) [facility](Sub ase Occupatio Critical access hospital) OUTPATIENT [id number] Notes Entered by: YU POMPA 03 Dec 2016 1024 ------- ------- ------- ------- -- f/u re lab results #124 MIGNON POMPA 12/03 Released w/o Limitations [facility] ub[facility] Occupat ional Health [facility]) [facility](Sub ase Occupatio Critical access hospital) TELE CONSULT [id number] Notes Entered by: ALETHAYU WESLY N 03 Dec 2016 1041 ------- ------- ------- ------- -- f/u to lab results MINGON POMPA Carmela 12/03 [facility] for [facility] OUTPATIENT [id number] Theater Provider 04/27 Released w/o Limitations [facility] OUTPATIENT [id number] Theater Provider 06/01 Released w/o Limitations [facility] OUTPATIENT [id number] Theater Provider 06/25 Released w/o Limitations [facility] OUTPATIENT [id number] 5 Theater Provider 02/07 Released w/o Limitations [facility] OUTPATIENT [id number] 1 Theater Provider 06/14 Released w/o Limitations [facility] OUTPATIENT [id number] 8 Theater Provider 07/03 Released w/o Limitations [facility] OUTPATIENT [id number] 8 Theater Provider 07/19 Released w/o Limitations [facility] OUTPATIENT [id number] 5 Theater Provider 08/28 Released w/o Limitations [facility] OUTPATIENT [id number] 3 Theater Provider 09/12 Released w/o Limitations [facility] [place] OUTPATIENT [id number] Notes Entered by: TIFFANIE GARCÍA I 07 Nov 2018 0839 ------- ------- ------- ------- -- KOFFI CARABALLO 11/06 Released w/o Limitations [facility] [place] Facility OUTPATIENT [id number] 4 Theater Provider 09/25 Released w/o Limitations [facility] OUTPATIENT [id number] 3 Theater Provider 10/08 Released w/o Limitations [facility] OUTPATIENT [id number] 8 Theater Provider 02/18 Released w/o Limitations [facility] OUTPATIENT [id number] 3 Theater Provider 11/07 Released w/o Limitations [facility] [address] [place] [address] Between Visit [id number] 05/15 Discharge Disposition: Home or Self Care [address] Outpatient [id number] KRISTYN SARITA 05/15 Discharge Disposition: Home or Self Care [address] Dental [id number] VAL EVANSCarmelaAGUSTINJACKELYN Gonzalez 05/25 Discharge Disposition: Home or Self Care [address] Clinic [id number] 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 Procedure Procedure Type Code Date Perfomer Comments Sourc e No data available for this section [id number]-[id number] H C [place] IV Infusion For Hydration 31 Minutes To 1 Hour IV Infusion For Hydration 31 Minutes To 1 Hour [address] [facility] Alcohol and/or drug services; intensive outpatient (treatment program that operates at least 3 hours/day and at least 3 days/week and is based on an individualized treatment plan), including a e ment, counseling; crisis intervention, and activity therapies or education NGOZI ESPARZA Breathalyzer For Blood Alcohol Content Breathalyzer For Blood Alcohol Content 80666 NGOZI ESPARZA 0.00 [facility] Alcohol and/or drug services; intensive outpatient (treatment program that operates at least 3 hours/day and at least 3 days/week and is based on an individualized treatment plan), including a e ment, counseling; crisis intervention, and activity therapies or education [address] [facility] Breathalyzer For Blood Alcohol Content Breathalyzer For Blood Alcohol Content 04632 [address] [facility] Alcohol and/or drug services; intensive outpatient (treatment program that operates at least 3 hours/day and at least 3 days/week and is based on an individualized treatment plan), including a e ment, counseling; crisis intervention, and activity therapies or education [address] [facility] Breathalyzer For Blood Alcohol Content Breathalyzer For Blood Alcohol Content 69581 [address] [facility] Psychiatric Evaluation Psychiatric Evaluation [address] [facility] Alcohol and/or drug services; case management 019 KIMO MOTLEY Alcohol and/or drug a e ment 019 KIMO MOTLEY Breathalyzer For Blood Alcohol Content Breathalyzer For Blood Alcohol Content 82535 019 KIMO MOTLEY Intervention And Counseling On Ce ation Of Tobacco Use Intervention And Counseling On Cessation Of Tobacco Use 4000F [address] [facility] Audiogram (Screening) Audiogram (Screening) [address] [facility] Surgery Of Male Genitalia Vasectomy Surgery Of Male Genitalia Vasectomy 89649 017 AZUCENA MAGANA Anesthesia Lower Abdomen For Vasectomy, Unilateral/Bilateral Anesthesia Lower Abdomen For Vasectomy, Unilateral/Bilatera l 13169 017 AZUCENA MAGANA Determination Of Refractive State Determination Of Refractive State 61396 017 [facility]IAN HOUSE Ophthalmological New Patient Start Comprehensive Care Ophthalmological New Patient Start Comprehensive Care 14375 017 [facility] HOUSE Typhoid Vaccine Vi Capsular Polysaccharide, For Intramus Use Typhoid Vaccine Vi Capsular Polysaccharide, For Intramus Use 69039 017 TOLU SOSA Typhoid, ViCPs; Series #: 1; .5 mL; IM; Left Arm; Mfg: [employer]; Lot: [id number]. [facility] Immunization Administration One Vaccine Immunization Administration One Vaccine [address] [facility] Spirometry Spirometry 50059 017 HEMA BANSAL Threshold Audiogram (Pure Tone) Automated Threshold Audiogram (Pure Tone) Automated 0208T [address] [facility] Immunization Administration One Vaccine Immunization Administration One Vaccine [address] [facility] Physical Therapy: ___ Se ion Segments, 15 Minutes Each Physical Therapy: ___ Session Segments, 15 Minutes Each 13450 016 KATHLEEN MENESES Physical Medicine Physical Therapy Evaluation Physical Medicine Physical Therapy Evaluation 64634 016 KATHLEEN MENESES Spirometry Spirometry 36780 016 RAD HENNING Destruction Of Flat Warts By Cryosurgery Up To 14 Lesions Destruction Of Flat Warts By Cryosurgery Up To 14 Lesions 17301 016 GEENA VALERA Screening Test Of Visual Acuity, Quantitative, Bilateral Screening Test Of Visual Acuity, Quantitative, Bilateral 03586 016 HEMA CABELLO Ophthalmological Prior Patient Start Intermediate Level Care Ophthalmological Prior Patient Start Intermediate Level Care 55027 015 [facility]IAN HOUSE Ophthalmological Prior Patient Start Intermediate Level Care Ophthalmological Prior Patient Start Intermediate Level Care 79271 015 [facility] HOUSE Ophthalmological New Patient Start Intermediate Level Care Ophthalmological New Patient Start Intermediate Level Care 24969 015 VIVIAN HOUSE Threshold Audiogram (Pure Tone) Threshold Audiogram (Pure Tone) 40109 015 MA, CODI M [facility] Threshold Audiogram (Pure Tone) Threshold Audiogram (Pure Tone) 98629 015 MA, CODI M [place] Screening Test Of Visual Acuity, Quantitative, Bilateral Screening Test Of Visual Acuity, Quantitative, Bilateral [address] [facility] Spirometry Spirometry 67890 015 RAD HENNING Screening Test Of Visual Acuity, Quantitative, Bilateral Screening Test Of Visual Acuity, Quantitative, Bilateral [address] [facility] Ophthalmological Prior Patient Start Comprehensive Care Ophthalmological Prior Patient Start Comprehensive Care 27166 013 AZUCENA SHEFFIELD Determination Of Refractive State Determination Of Refractive State 18287 013 AZUCENA SHEFFIELD Postoperative Visit, Without Charge Postoperative Visit, Without Charge 48075 013 REMIGIO BLUE Determination Of Refractive State Determination Of Refractive State 32134 013 REMIGIO BLUE Postoperative Visit, Without Charge Postoperative Visit, Without Charge 72191 013 AZUCENA SHEFFIELD Determination Of Refractive State Determination Of Refractive State 56581 013 AZUCENA SHEFF[place] Photorefractive keratectomy (PRK) JIM FIGUEROA Dr.-Supervised Group Educational Services -Supervised Group Educational Services 31963 JIM FIGUEROA Ophthalmological Prior Patient Start Intermediate Level Care Ophthalmological Prior Patient Start Intermediate Level Care 56725 JIM FIGUEROA Visual [place] Test Intermediate Examination Visual [place] Test Intermediate Examination 09378 AZUCENA SHEFFIELD Scanning Computerized Ophthalmic Diagnostic Imaging Anterior Segment, Unilateral Scanning Computerized Ophthalmic Diagnostic Imaging Anterior Segment, Unilateral 99954 AZUCENA SHEFFIELD Determination Of Refractive State Determination Of Refractive State 13061 013 AZUCENA SHEFF[place]ELD Ophthalmological Prior Patient Start Comprehensive Care Ophthalmological Prior Patient Start Comprehensive Care 12972 013 AZUCENA [place] Determination Of Refractive State Determination Of Refractive State 38260 REMIGIO BLUE Ophthalmological New Patient Start Comprehensive Care Ophthalmological New Patient Start Comprehensive Care 35268 REMIGIO BLUE Computerized Corneal Topography Computerized Corneal Topography 45883 013 REMIGIO BLUE Corneal Pachymetry Both Eyes Corneal Pachymetry Both Eyes 95672 REMIGIO BLUE Scanning Computerized Ophthalmic Diagnostic Imaging Retina Scanning Computerized Ophthalmic Diagnostic Imaging Retina 23972 013 REMIGIO BLUE Determination Of Refractive State Determination Of Refractive State 35463 013 REMIGIO BLUE Audiometry Group Testing Audiometry Group Testing 59574 012 SMITHCA OLIVA Prescription & Fitting Bilateral Corneal Lenses (Not Aphakia Prescription & Fitting Bilateral Corneal Lenses (Not Aphakia 20758 012 MICHELLE HENNING Determination Of Refractive State Determination Of Refractive State 67218 012 MICHELLE HENNING Ophthalmological Prior Patient Start Comprehensive Care Ophthalmological Prior Patient Start Comprehensive Care 32702 012 MICHELLE HENNING Prescription & Fitting Bilateral Corneal Lenses (Not Aphakia Prescription & Fitting Bilateral Corneal Lenses (Not Aphakia 39336 012 MICHELLE HENNING Spect[employer] Services Fitting Monofocals (Not For Aphakia) Spectacles Services Fitting Monofocals (Not For Aphakia) 08622 012 MICHELLE HENNING Determination Of Refractive State Determination Of Refractive State 21133 012 MICHELLE HENNING Ophthalmological Prior Patient Start Comprehensive Care Ophthalmological Prior Patient Start Comprehensive Care 94026 012 MICHELLE HENNING [employer] Services Fitting Monofocals (Not For Aphakia) Spectacles Services Fitting Monofocals (Not For Aphakia) 01101 010 NAM TYLER Determination Of Refractive State Determination Of Refractive State 98784 010 NAM TYLER Ophthalmological New Patient Start Comprehensive Care Ophthalmological New Patient Start Comprehensive Care 49749 010 NAM TYLER Determination Of Refractive State Determination Of Refractive State 48825 009 TITUS LEACH [employer] Services Fitting Monofocals (Not For Aphakia) Spectacles Services Fitting Monofocals (Not For Aphakia) 46792 009 TITUS LEACH Screening Test Of Visual Acuity, Quantitative, Bilateral Screening Test Of Visual Acuity, Quantitative, Bilateral 15875 009 TITUS LEACH Audiometry Group Testing Audiometry Group Testing [address] Services Analysis Of Computerized Data Special Services Analysis Of Computerized Data [address] [facility] Threshold Audiogram (Pure Tone) Threshold Audiogram (Pure Tone) [address] [facility] Social History Combined list of available smoking, tobacco, and other social history from Department of Defense and Veterans Affairs facilities. Social History Type Response Date Comment [facility] e Sex Representation Male (finding) 12/05/2016 Un known Organization Sexual Orientation [address] [place] [address] [place] Gender identity [address] [place] [address] C Gita This section is an empty social history section. [facility] Assessment and Plan Combined list of future care activities from Department of Defense and Veterans Affairs facilities (e.g., assessment and plan notes, appointments, orders, and referrals). Additional future care activities may be listed in the Plan of Care section. 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 [id number] was screened, and electronic health record. NOT CURRENTLY FFD/WWD.?Awaiting?PCM clearance?for?HTN,?no f/u?since?2018. Inquiry?forwarded for?chronic?lower?back pain. Managed?with Physical Therapy.?Advised to follow-up with PCM if he has any new concerns or medical issues. Please refer to uploaded suitability screening for further details. ? [facility] [place] Kaitlin Miguel Independent Duty [employer] [facility] MRD/Optometry [facility] DSN: [phone] E-mail: [email or web address] Extracted from:Title: Low Back Pain Author: CHRIS GOODSON, IDC Date: 01/17/21 Orders: meloxicam, 1 tab(s), Oral, Daily, # 90 tab(s), 0 total refill(s), Maintenance, Other Reason (Rx) [External Rx] MRI Spine Lumbar w/o Contrast LOW BACK PAIN ASSESSMENT AND PLAN: ? 35 y/o male with low back pain. Gradual,?and worsening.? AFROM, no concerning findings for cauda equina syndrome.?Previous x-rays show marginal narrowing and osteophytes in the Lumbar spine with an Impression of Spondylosis. Physical?negative for red flags but shows pain elicited with flexion and extension. ? - Recommended continued ice/heat alternating with?Mobic as ordered. - Stretching and strengthening techniques explained to patient - Follow up after completion of Physical Therapy - Recommend gentle stretching as tolerated and to avoid bed rest. - Avoid heavy lifting until symptoms have improved - Pt verbally understands and agrees with treatment plan at this time.? 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 [id number] was screened, and electronic health record. NOT CURRENTLY FFD/WWD.?Awaiting?PCM clearance?for?HTN,?no f/u?since?2018. Inquiry?forwarded for?chronic?lower?back pain. Managed?with Physical Therapy.?Advised to follow-up with PCM if he has any new concerns or medical issues. Please refer to uploaded suitability screening for further details. ? [facility] [place] Kaitlin Miguel [employer] PO MRD/Optometry [facility] DSN: [phone] E-mail: [email or web address] Extracted from:Title: Low Back Pain Author: CHRIS GOODSON IDC Date: 01/17/21 Orders: meloxicam, 1 tab(s), Oral, Daily, # 90 tab(s), 0 total refill(s), Maintenance, Other Reason (Rx) [External Rx] MRI Spine Lumbar w/o Contrast LOW BACK PAIN ASSESSMENT AND PLAN: ? 35 y/o male with low back pain. Gradual,?and worsening.? AFROM, no concerning findings for cauda equina syndrome.?Previous x-rays show marginal narrowing and osteophytes in the Lumbar spine with an Impression of Spondylosis. Physical?negative for red flags but shows pain elicited with flexion and extension. ? - Recommended continued ice/heat alternating with?Mobic as ordered. - Stretching and strengthening techniques explained to patient - Follow up after completion of Physical Therapy - Recommend gentle stretching as tolerated and to avoid bed rest. - Avoid heavy lifting until symptoms have improved - Pt verbally understands and agrees with treatment plan at this time.? 08/09/2024 [id number] [facility] Functional Status Combined list of recent functional and cognitive assessments recorded at [facility] [employer] [facility] ([facility]VA Functional [place]alle Measurement (FIM) Scale: 1 = Total Assistance (Subject = 0% +), 2 = Maximal Assistance (Subject = 25% +), 3 = Moderate Assistance (Subject = 50% +), 4 = Minimal Assistance (Subject = 75% +), 5 = Supervision, 6 = Modified Lasalle (Device), 7 = Complete [place]alle (Timely, Safely). Assessment Date/Time Source Assessment Type Assessment Skill Assessment Score Assessment Details No data available for this section
--- OUTSIDE RECORDS SUMMARY | 2024-08-09 08:48 | XMS_ITS | Continuity of Care Document ---
Author Organization [facility] Address [address] [place] [address] Phone Care Team Providers Care Clinical Supervisor Name Role Phone Unavailable Unavailable Unavailable Procedures Procedure Date Office/outpatient visit,[facility], [facility] [place] [place] 2005 Office/outpatient visit,[facility], [facility] 2005 Advance Directives Directive Yes / No Effective Date File Name No Information Encounters Encounter Description Practice Location Reason(s) For Visit Diagnoses Date Provider Providers Copied on Encounter Office/outpat ient visit,est, mod [facility], [address], [place], [place], [id number], [place] tel:[phone] [facility] No Information 6 No Information Office/outpat ient visit,est, low [facility], [address], [place], [place], [id number], [place] tel:[phone] [facility] No Information No Information Family History Family Member Type Diagnosis Age At Onset No Information Payers Payer name Insurance type Covered republican ID Authoriza tiasif(s) [facility] PACC CI [id number] Social History Type Description Quantity Date Captured [...]
== END 2024-08-09 09:06 | disposition home or self-care (01) ==
LOC: HO.HMCH 08:37
PROVIDERS: PCP Internal Medicine; Visit Provider Internal Medicine
DX: I10 Essential (primary) hypertension (principal)

== ENCOUNTER → 2024-08-09 08:36 | Outpatient (BNVA) | payer OTHER, SELFPAY | PROVIDERS: PCP Internal Medicine; Visit Provider Internal Medicine | DX: I10 Essential (primary) hypertension (principal) | CPT/HCPCS: 99212 ==

== ENCOUNTER 2024-11-01 08:40 | Outpatient (AMB) | payer OTHER, SELFPAY ==
--- OUTSIDE RECORDS SUMMARY | 2005-08-19 11:16 | XMS_ITS | Continuity of Care Document ---
Author Organization [facility] Address [address] [place] [address] Phone Care Team Providers Care Soft Tile Setter Name Role Phone Unavailable Unavailable Unavailable Procedures Procedure Date [facility] 2005 Advance Directives Directive Yes / No Effective Date File Name No Information Encounters Encounter Description Practice Location Reason(s) For Visit Diagnoses Date Provider Providers Copied on Encounter Office/outpat ient visit,est, mod [facility], [address], [place], [place], [id number], [place] tel:[phone] [facility] No Information 6 No Information Office/outpat ient visit,est, low [facility], [address], [place], [place], [id number], [place] tel:[phone] [facility] No Information No Information Family History Family Member Type Diagnosis Age At Onset No Information Payers Payer name Insurance type Covered democrat ID Authoriza tiasif(s) [facility] PACC CI [id number] Social History Type Description Quantity Date Captured [...]
--- NOTE | 2024-11-01 08:49 | A.OFFVIS_ITS ---
Vital Signs 11/01/24 08:57 Height 5 ft 11 in Weight 244 lb BMI 34.0 Handedness Right Intake Visit Reasons: right shoulder inj (80), last inj 11/11/22 Intake Note: Ole is a 39 year old male who presents today for a repeat shoulder injection, last injection was on 11/11/22 (80). Patient reports he was seen in [facility] were he was given a cortisone injection on 10/26/24. Patient states that he is feeling a bit better, however he notices some pinching in his shoulder with movement. Allergies Penicillins Allergy (Intermediate, Verified 11/01/24 08:57) Hives HPI HPI right shoulder inj (80), last inj 11/11/22: Details: Mr. Veliz is a 39-year-old right-hand dominant male who presents to the office today for follow up of right shoulder pain. He reports that within the past week he presented to a [place] urgent care for the shoulder pain and received a cortisone injection. He reports that he continues to have an aching/pinching/burning sensation in the right shoulder and points to the area o maryse the supraspinatus tendon. He states that the injection helped some but was not as effective as his last cortisone injection that he received in our office on 11/11/2022. He is looking for any additional recommendations. [facility] Medical History GERD (gastroesophageal reflux disease) HTN (hypertension) Plantar fasciitis, bilateral Left foot pain Encounter to establish care Surgical History [place] teeth extracted History of vasectomy History of photorefractive keratectomy (PRK) Family History Other Substance use disorder Social History Housing: House Alcohol intake: current Alcohol intake frequency: a few times a month Patient Tobacco Use Status: Former Tobacco user e-Cigarette/Vaping Use: Never Used Second Hand Smoke Exposure: Yes service: Yes Current occupational status: employed Current occupation: [employer] Cognitive needs: No Hearing needs: No Vision needs: No Review of Systems Const All systems reviewed & are unremarkable except as noted in HPI and below Physical Exam Vital Signs: BMI result Body Mass Index 34.0 Const General: cooperative, healthy appearing and no acute distress Resp Effort & Inspection: normal respiratory effort and able to speak in complete sentences Extrem Other: Right shoulder: Normal to inspection. No ecchymosis, erythema, or edema. Full shoulder ROM in all planes. Negative cross-body reach. 5/5 strength with belly press, lift-off and empty can. However, patient reports pain over the supraspinatus with all of these motions. Negative drop arm. NVI. Psych Appearance: grossly normal Mental Status: mental status grossly normal Attitude: cooperative Assessment & Plan Assessment & Plan (1) Painful arc syndrome of right shoulder: Code(s): M75.101 - Unspecified rotator cuff tear or rupture of right shoulder, not specified as traumatic Category: Medical Plan Mr. Veliz is a 39-year-old right-hand dominant male who presents to the office today for follow up of right shoulder pain. He reports that within the past week he presented to a [place] urgent care for the shoulder pain and received a cortisone injection. He reports that he continues to have an aching/pinching/burning sensation in the right shoulder and points to the area over the supraspinatus tendon. He states that the injection helped some but was not as effective as his last cortisone injection that he received in our office on 11/11/2022. He is looking for any additional recommendations. While in the office today, I discussed with the patient that is too soon for a repeat cortisone injection at this time. I educated the patient that the prior cortisone injection was given within the past week and may just need some more time to be effective. I offered the patient Celebrex 200 mg p.o. b.i.d. prn pain in which the patient is amenable to try. We discussed the role of physical therapy. However, the patient would like to hold off at this time and see if the injection provides any additional relief. He will contact the office should he have any increasing pain and I am happy to place an order at that time. He will follow up in 3 months for possibility of repeat cortisone injection, sooner if needed. Should the patient not need a repeat injection in 3 months he may cancel as he feels appropriate. Medications: New celecoxib (Celebrex) 200 mg PO BID 60 caps 0RF 30 days Coding Level of Care Code Est Pt Level 3 (53876) Diagnoses Painful arc syndrome of right shoulder M75.101
[2024-11-01 08:57] VITALS: BMI 34.0
--- OUTSIDE RECORDS SUMMARY | 2024-11-01 09:01 | XMS_ITS | Continuity of Care Document ---
Author Name [facility] Organization [facility] Care Team Providers Care Mva Operator Name Role Phone [facility] Unavailable Unavailable Problems Combined list of problems from Department of Defense and Veterans Affairs facilities. It does not include entries that were removed or entered in error. 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 Active 5 Diagnosis [facility] Low back pain Inactive 0 Condition [facility] Gastro-esophageal reflux disease without esophagitis Active 0 Condition [facility] HYPERTENSION (SYSTEMIC) Inactive 9 Condition [facility] NON-INFECTIOUS GASTROENTERITIS Inactive 9 Condition [facility] PSEUDOFOLLICULITIS BARBAE Inactive 9 Condition [facility] visit for: occupational health / fitness exam Inactive 9 Condition [facility] CHLAMYDIAL INFECTIONS Inactive 9 Condition [facility] EPIDIDYMITIS Inactive 8 Condition [facility] visit for: issue repeat prescription for medication Inactive 8 Condition [facility] INGROWING NAIL Inactive 8 Condition [facility] Essential (primary) hypertension Inactive 7 Condition [facility] visit for: services physical Inactive 0 Condition [facility] Vasectomy status Active Condition [facility] Regular astigmatism, left eye Active Condition [facility] Myopia, right eye Active Condition [facility] Peripheral opacity of cornea, right eye Active Condition [facility] visit for: postsurgical exam Inactive Condition [facility] POSTSURGICAL STATE OF EYE AND ADNEXA Inactive Condition [facility] Aftercare Following Surgery Of Sense Organs Inactive Condition [facility] POSTSURGICAL STATE OF EYE AND ADNEXA BOTH Inactive Condition [facility] visit for: preoperative exam Inactive Condition [facility] Patient Education - Injury Prevention Inactive Condition [facility] RETINAL DEFECTS WITHOUT DETACHMENT Active Condition [facility] visit for: screening exam eye disorders Inactive Condition [facility] ASTIGMATISM - REGULAR Inactive Condition [facility] ASTIGMATISM Inactive Condition [facility] REFRACTIVE ERROR - MYOPIA Inactive Condition [facility] visit for: services physical pre-deployment Inactive Condition [facility] Need For Prophylactic Antibiotics Inactive Condition [facility] Patient Education Inactive Condition [facility] Patient Education Dietary Changing Eating Habits Inactive Condition [facility] Inquiry And Counseling: Contraceptive Practices Inactive Condition [facility] Anticipatory Guidance: Unsafe Sexual Practices Inactive Condition [facility] visit for: services physical accession Inactive Condition DoD visit for: ears / hearing exam Inactive Condition DoD reactions to penicillins Active Condition [facility] Observation For Suspected Condition Inactive Condition [facility] Medications Combined list of outpatient medications [...] (given by mouth) Ordered 2020 90.0 0029R-O [facility] hydroCHLORO thiazide 25 mg tablet 25 mg, Oral, Daily, # 90 EA, 3 total refill(s ), Hard Stop Oral (given by mouth) Complet ed 02/16/2022 1 2021 90.0 Ambulat ory Pharmac y Hydrocortis one with Aloe 1% topical cream See Instruct ions, AAA after shaving PRN, # 45 g, 0 total refill(s ), Mainfranklin kirbye, Pharmacy : [facility] Complet ed 05/31/20242024 45.0 0029R-O [facility] loratadine 10 mg oral tablet loratadi [...] by mouth) Discont inued 01/19/20212020 90.0 0029R-O [facility] omeprazole 20 mg oral delayed release tablet 1 tab(s), Oral, BID, before a meal, # 42 tab(s), 3 total refill(s ), Maintena nce, Other Reason (Rx) Oral (given by mouth) Complet ed 05/31/2024 2 2024 42.0 0701C-N [facility] tretinoin 0.025% topical gel 1 appl(s), Topical, every day at bedtime, # 30 g, 0 total refill(s ), Maintena nce, Other Reason (Rx) Topica l (on the skin) Ordered 2020 30.0 0029R-O [facility] tretinoin 0.05% topical cream 1 appl(s), Topical, every day at bedtime, # 60 g, 0 total refill(s ), Maintena nce, Pharmacy : [facility] Topica l (on the skin) Complet ed 05/31/20242024 60.0 0029R-O [facility] Allergies, Adverse Reactions, Alerts Combined list of allergies from Department of Defense and Veterans Affairs facilities. It does not include entries that were removed or entered in error. Substance Category Reaction Severity Reaction type Status Date Reported Comments Source Penicillins Drug allergy (disorder) Urticaria active 9 [facility] penicillins Propensity to adverse reactions to substance Urticaria Active 9 Unknown Organizat ion Immunizations Combined list of available immunizations from the Department of Defense and Veterans Affairs facilities. Immunization Series Date Given Administered By Site Reaction Lot Number CVX Code Drug Calibration Specialist Status Comments Source typhoid Vi capsular polysaccharid e vaccine 1 2018 [id number] Sanofi Pasteur (PMC) complet ed typhoid Vi capsular polysacch aride vaccine [facility] influenza, injectable, quadrivalent, contains preservative 0 2017 UNK 158 Unknown (UNK) comple t ed influenza , injectabl e, quadrival ent, contains preservat abdiaziz DoD influenza, injectable, quadrivalent, contains preservative 0 2017 [id number] 158 [facility] ([facility]) complet ed influenza , injectabl e, quadrival ent, contains preservat abdiaziz DoD measles and rubella virus vaccine 0 2016 04 () Not Given measles and rubella virus vaccine DoD typhoid Vi capsular polysaccharid e vac 2016 zzLef t Arm [id number] sanofi pasteur complet ed typhoid Vi capsular polysacch aride vac 08/19/16 Given 1656H-N [facility] typhoid Vi capsular polysaccharid e vaccine 1 2016 TOLU SOSA [id number] 101 Sanofi Pasteur ([facility]) complet ed typhoid Vi capsular polysacch aride vaccine DoD influenza, injectable, quadrivalent- pf 2015 zzLef t Arm [id number] 150 GlaxoSmithKli ne complet ed influenza , injectabl e, quadrival ent-pf 02/09/16 Given 1656H-N [facility] influenza, seasonal, injectable-pf 2015 [id number] 140 GlaxoSmithK[employer] ne complet ed influenza , seasonal, injectabl e-pf 02/09/16 Given 1656H-N [facility] Influenza, seasonal, injectable, preservative free 0 2015 [id number] 140 [facility] ([facility]) complet ed Influenza , seasonal, injectabl e, preservat abdiaziz free DoD Influenza, injectable, quadrivalent, preservative free 1 2015 FEMI MATT [id number] 150 [facility] ([facility]) complet ed Influenza , injectabl e, quadrival ent, preservat abdiaziz free DoD influenza,tri valent, recombinant, inj-pf 2015 zzLef t Arm [id number] 155 [employer] complet ed influenza ,trivalen t, recombina nt, inj-pf 04/03/15 Given 1656H-N [facility] Seasonal, trivalent, recombinant, injectable influenza vaccine, preservative free 0 2015 [id number] 155 [employer] (CSL) complet ed Seasonal, trivalent , recombina nt, injectabl e influenza vaccine, preservat abdiaziz free DoD influenza, seasonal, injectable 2013 [id number] 141 Unknown complet ed influenza , seasonal, injectabl e 01/18/14 Given 1656H-N [facility] Influenza, seasonal, injectable 0 2013 [id number] 141 Other (OTH) complet ed Influenza , seasonal, injectabl e DoD influenza, seasonal, injectable 2013 [id number] 141 Unknown complet ed influenza , seasonal, injectabl e 01/11/14 Given 1656H-N [facility] Influenza, seasonal, injectable 0 2013 [id number] 141 Other (OTH) complet ed Influenza , seasonal, injectabl e DoD typhoid Vi capsular polysaccharid e vac 2013 UNK 101 Unknown complet ed typhoid Vi capsular polysacch aride vac 05/14/13 Given 1656H-N [facility] typhoid Vi capsular polysaccharid e vaccine 1 2013 UNK 101 Unknown (UNK) comple t ed typhoid Vi capsular polysacch aride vaccine DoD influenza, seasonal, injectable 2012 UNK 141 Unknown complet ed influenza , seasonal, injectabl e 12/13/12 Given 1656H-N [facility] Influenza, seasonal, injectable 0 2012 UNK 141 Unknown (UNK) comple t ed Influenza , seasonal, injectabl e DoD influenza, seasonal, injectable 2011 [id number] 141 Unknown complet ed influenza , seasonal, injectabl e 12/21/11 Given 1656H-N [facility] Influenza, seasonal, injectable 1 2011 [id number] 141 Other (OTH) complet ed Influenza , seasonal, injectabl e DoD hepatitis A-hepatitis B vaccine 2011 UNK 104 Unknown complet ed hepatitis A-hepatit is B vaccine 08/03/11 Given 1656H-N [facility] hepatitis A and hepatitis B vaccine 3 2011 UNK 104 Unknown (UNK) comple t ed hepatitis A and hepatitis B vaccine DoD typhoid Vi capsular polysaccharid e vac 2011 UNK 101 Unknown complet ed typhoid Vi capsular polysacch aride vac 05/27/11 Given [facility] typhoid Vi capsular polysaccharid e vaccine 1 2011 UNK 101 Unknown (UNK) comple t ed typhoid Vi capsular polysacch aride vaccine DoD influenza, seasonal, injectable 2010 [id number] 141 Unknown complet ed influenza , seasonal, injectabl e 01/12/11 Given 1656H-N [facility] Influenza, seasonal, injectable 0 2010 [id number] 141 Other (OTH) complet ed Influenza , seasonal, injectabl e DoD influenza virus vaccine,split 2010 UNK 15 Unknown complet ed influenza virus vaccine,s plit 01/11/11 Given 1656H-N [facility] influenza virus vaccine, split virus (incl. purified surface antigen)-reti red CODE 0 2010 UNK 15 Unknown (UNK) comple t ed influenza virus vaccine, split virus (incl. purified surface antigen)- retired CODE DoD influenza virus vaccine,split 2009 UNK 15 Unknown complet ed influenza virus vaccine,s plit 12/10/09 Given 1656H-N [facility] influenza virus vaccine, split virus (incl. purified [...] umps/rube lla virus vaccine 09/24/09 Given 1656H-N [facility] measles, mumps and rubella virus vaccine 0 2009 UNK 03 Unknown (UNK) comple t ed measles, mumps and rubella virus vaccine DoD typhoid vaccine, unspecified formulation 2009 [id number] [employer] complet ed typhoid vaccine, unspecifi ed formulati on 04/18/09 Given 1656H-N [facility] typhoid Vi capsular polysaccharid e vac 2009 UNKNOWN 101 Unknown complet ed typhoid Vi capsular polysacch aride vac 04/18/09 Given 1656H-N [facility] yellow fever vaccine 2009 [id number] 37 [employer] complet ed yellow fever vaccine 04/18/09 Given 1656H-N [facility] poliovirus vaccine, inactivated 2009 [id number] 10 Med[employer] Inc comple t ed polioviru s vaccine, inactivat ed 04/18/09 Given 1656H-N [facility] poliovirus vaccine, inactivated 0 2009 D0304 10 [employer] (MED) complet ed polioviru s vaccine, inactivat ed DoD yellow fever vaccine 0 2009 [id number] [employer] Kennan (MIP) complet ed yellow fever vaccine DoD typhoid vaccine, unspecified formulation 5 2009 [id number] 91 Cojuan antonioShantel (WAL) complet ed typhoid vaccine, unspecifi ed formulati on DoD typhoid Vi capsular polysaccharid e vaccine 1 2009 UNKNOWN 101 Unknown (UNK) comple t ed typhoid Vi capsular polysacch aride vaccine DoD Novel influenza-H1N 1-09, injectable 2008 [id number] 1 127 complet ed Novel influenza -[id number], injectabl e 03/11/09 Given 1656H-N [facility] tetanus, diphtheria, acellular pertu is 2008 [id number] 115 sanofi pasteur complet ed tetanus, diphtheri a, acellular pertussis 03/11/09 Given 1656H-N [facility] influenza virus vaccine, live 2008 [id number] 111 Unknown complet ed influenza virus vaccine, live 03/11/09 Given 1656H-N [facility] meningococcal A,C,Y,W-135 (MCV4P) 2008 [id number] 114 [employer] complet ed meningoco ccal A,C,Y,W-1 35 (MCV4P) 03/11/09 Given 1656H-N [facility] meningococcal polysaccharid e (MPSV4) 2008 UNKNOWN 32 Unknown complet ed meningoco ccal polysacch aride (MPSV4) 03/11/09 Given 1656H-N [facility] meningococcal polysaccharid e vaccine (MPSV4) 1 2008 UNKNOWN 32 Unknown (UNK) comple t ed meningoco ccal polysacch aride vaccine (MPSV4) DoD influenza virus vaccine, live, attenuated, for intranasal use 0 2008 [id number] 111 Unknown (UNK) comple t ed influenza virus vaccine, live, attenuate d, for intranasa l use DoD meningococcal polysaccharid e (groups A, C, Y and W-135) diphtheria toxoid conjugate vaccine (MCV4P) 0 2008 [id number] 114 [employer] (AVB) complet ed meningoco ccal polysacch aride (groups A, C, Y and W-135) diphtheri a toxoid conjugate vaccine (MCV4P) DoD tetanus toxoid, reduced diphtheria toxoid, and acellular pertu is vaccine, adsorbed 0 2008 [id number] 115 Sanofi Pasteur (PMC) complet ed tetanus toxoid, reduced diphtheri a toxoid, and acellular pertussis vaccine, adsorbed DoD Novel influenza-H1N 1-09, injectable 0 2008 [id number] 1 127 (AG) complet ed Novel influenza -[id number], injectabl e DoD hepatitis B vaccine, pediatric [...] Performed At: 1 [facility] [id number] [place] [address] [address] [place] [address] RENATA NASH PHD Ph:[phone] 63 [facility] [place] Infectious Disease Source of Test.LC Gen Force Test (05/15/24 12:29 PM) 05/15 N [facility] [place] Encounters Combined list of: 1) Encounters from Department of Veterans Affairs facilities going backup to the last 18 months, not all VA inpatient encounters are included; 2) Encounters from the Department of Defense facilities going backup to 280 months. Location Location Details Encounter Type Encounter Number Reason For Visit Attending Provider ADM Date DC Date Status Disposition Source Azucena Espitia [facility]([place] antonina Sorensen t/1523) OUTPATIENT [id number] JIM PIERCE 03/10 Released w/o Limitations [facility]( Med. Assessm ent/152 3) [facility](Au diology [facility] 1523) OUTPATIENT [id number] MICHELLE CALVOJACLYN Espitia 03/10 Released w/o Limitations [facility]( Audiolo gy [facility] 1523) [facility](Op tometry [facility] 1523) OUTPATIENT [id number] recruit screen TITUS LEACH 03/10 Released w/o Limitations [facility]( Optomet ry [facility] 1523) [facility](We [facility] Male) OUTPATIENT [id number] JEANE MANCIA 03/11 Released w/o Limitations [facility]( [facility](Me d. Assessmen t/1523) OUTPATIENT [id number] PABLO GARSIA 04/22 Released w/o Limitations [facility]( Med. Assessm ent/152 3) [facility](Mi litary Sick Call [facility] 237) OUTPATIENT [id number] JESÚS FALLON 05/21 Released w/o Limitations [facility]( Militar y Sick Call [facility] 237) [facility]([place] [facility] ) OUTPATIENT [id number] REE/BMR NAM TYLER 02/10 Released w/o Limitations [facility]([place] [facility]) [facility] ) OUTPATIENT [id number] ree,bmr MICHELLE HENNING 02/06 Released w/o Limitations [facility]([place] [facility]) [facility] ) OUTPATIENT [id number] CL CHECK/D FE MICHELLE HENNING 02/21 Released w/o Limitations [facility]([place] [facility]) [facility] HC Program) OUTPATIENT [id number] Notes Entered by: JOSH HARRISON 23 Feb 2012 0943 ------- ------- ------- ------- -- HEARING TEST SMITH MARIOREZA 02/22 Released w/o Limitations [facility](N [facility] HC Program ) [facility]) OUTPATIENT [id number] PRELIM DRY ONLY MIRZAREMIGIO ARCE D 06/09 Released w/o Limitations [facility](N [facility]) [facility]) OUTPATIENT [id number] pre-op wet MIRZA REMIGIO D 06/19 Released w/o Limitations [facility](N [facility]) [facility](SD Ophthalmo logy Part) OUTPATIENT [id number] vf 24-2 livia/sw ap, rnfl oct, disc photos: hand carry results to [facility] NORIS BACA 06/20 Released w/o Limitations [facility](S D Ophthal mology Part) [facility]) OUTPATIENT [id number] stabili ty check: rpt U/S GISEL aguiar for TID's, review Glaucom a w/u AZUCENA SHEFFIELD 06/26 Released w/o Limitations [facility](N [facility]) [facility]) OUTPATIENT [id number] prk consent and sle w/JIM Potter 08/16 Released w/o Limitations [facility](N [facility]) [facility]) OUTPATIENT [id number] prk surgery JIM FIGUEROA T 08/28 Released w/o Limitations [facility](N [facility]) [facility]) OUTPATIENT [id number] 7dpop prk AZUCENA Marin 09/04 Released w/o Limitations [facility]) [facility]) TELE CONSULT [id number] Notes Entered by: Bety RAYGOZA 05 Sep 2012 1246 ------- ------- ------- ------- -- 1 day post op PRK CAROLINAJIM GR Lakshmi 09/05 [facility]) [facility]) OUTPATIENT [id number] 4wks.REMIGIO Hwang 09/29 Released w/o Limitations [facility]) [facility]) OUTPATIENT [id number] 3-mon prk AZUCENA Marin 12/21 Released w/o Limitations [facility]) [facility](SD HC Program [facility]) OUTPATIENT [id number] Notes Entered by: Franklin LUIS 22 Feb 2014 0839 ------- ------- ------- ------- -- Hearing Test CHRIS MAZARIEGOS AM 02/22 Released w/o Limitations [facility](S D HC Program MOHCAT 1) [facility]([facility] Gold) OUTPATIENT [id number] Notes Entered by: CHINA MIRANDA 16 May 2014 1209 ------- ------- ------- ------- -- HEMA OSEGUERA 05/16 Released w/o Limitations [facility]S [facility] Family Medicin e Gold) [facility]([facility] Gold) OUTPATIENT [id number] f/u on 10 day B/P check from HEMA OSEGUERA 05/27 Released w/o Limitations [facility]S [facility] Family Medicin e Gold) [facility](Sub ase Occupatio [facility]) OUTPATIENT [id number] Notes Entered by: TIMOTHY HILLS 13 Jun 2014 0739 ------- ------- ------- ------- -- lead/ca dmium/n ickel/m ang/hcp /vib/me RAD Hill 06/13 Released w/o Limitations [facility](S Hear Con [facility]) OUTPATIENT [id number] Notes Entered by: CODI NICHOLAS 13 Jun 2014 0839 ------- ------- ------- ------- -- HCP CODI NICHOLAS 06/13 Released w/o Limitations [facility]) [facility](S Hear Con [facility]) OUTPATIENT [id number] Notes Entered by: CODI NICHOLAS 18 Jun 2014 1303 ------- ------- ------- ------- -- audio follow up CODI NICHOLAS 06/18 Released w/o Limitations [facility] EC) [facility] OUTPATIENT [id number] Notes Entered by: YU POMPA 09 Jul 2014 0813 ------- ------- ------- ------- -- f/u re cadmium labs MIGNON POMPA 07/09 Released w/o Limitations [facility]S ubase [facility]) [facility](Sub ase Family Medicine Gold) OUTPATIENT [id number] 3 month b/p f/u HEMA CABELLO 09/11 Released w/o Limitations [facility] Family Medicin e Gold) [facility](Sub ase Family Medicine Gold) OUTPATIENT [id number] BP F/U HEMA CABELLO 09/25 Released w/o Limitations [facility] Family Medic[facility]) [facility](Sub ase Family Medicine Gold) OUTPATIENT [id number] F/U BP HEMA CABELLO 10/04 Released w/o Limitations [facility]S [facility] Family Medicin e Gold) [facility](Sub ase Family Medicine Gold) OUTPATIENT [id number] ASF LINUS VILLEGAS 11/06 Released w/o Limitations [facility]S ub[facility] Family Medicin e Gold) [facility](Sub [facility]) OUTPATIENT [id number] TIMOTHY Booth 11/19 Released w/o Limitations [facility](Sub [facility] Occupatio [facility]) OUTPATIENT [id number] Notes Entered by: TIMOTHY HILLS 02 Dec 2014 1540 ------- ------- ------- ------- -- 6 month sumeet MIGNON POMPA Carmela 12/02 Released w/o Limitations [facility](S ubase Occupat [facility]) [facility](Sub [facility]) OUTPATIENT [id number] Notes Entered by: ANTHONY GIBSON 21 Jan 2015 0706 ------- ------- ------- ------- -- RED EYE-lat e entry [facility]IV[facility]SE 01/21 Released w/o Limitations [facility]) [facility](Sub [facility] Family [facility] Gold) OUTPATIENT [id number] R eye concern HEMA CABELLO 01/21 Immediate Referral [facility](S ubase Family Medicin e [facility]) [facility](Sub [facility]) OUTPATIENT [id number] Notes Entered by: ANTHONY GIBSON 22 Jan 2015 0958 ------- ------- ------- ------- -- F/U RED EYE [facility] 01/22 Released w/o Limitations [facility]) [facility](Sub ase [facility] Clinic) OUTPATIENT [id number] Notes Entered by: ANTHONY GIBSON 23 Jan 2015 1255 ------- ------- ------- ------- -- RED EYE LINNETTE HOUSECarmela Espitia 01/23 Released w/o Limitations [facility]) [facility](Sub [facility] Family Medicine Gold) OUTPATIENT [id number] Notes Entered by: Javier MARTIN 14 May 2015 1400 ------- ------- ------- ------- -- HEMA OSEGUERA 05/14 Released w/o Limitations [facility](S ub[facility] Family Medicin e Gold) [facility](Sub [facility] Gold) OUTPATIENT [id number] BP LOG f/u 5day HEMA CABELLO 05/16 Released w/o Limitations [facility]) [facility]([facility] Family Medicine Gold) OUTPATIENT [id number] Notes Entered by: KARIN ALEJANDRO 20 May 2015 1248 ------- ------- ------- ------- -- HEMA Phelps 05/19 Released w/o Limitations [facility] Family Medicin [facility]) [facility](Sub ase Occupatio [facility] - [facility]) OUTPATIENT [id number] Notes Entered by: LUIS CARLOS DUARTE 17 Jun 2015 0723 ------- ------- ------- ------- -- RAD KENT 06/16 Released w/o Limitations [facility](S ubase Occupat [facility] - [facility]) [facility]([facility] Family [facility] Gold) OUTPATIENT [id number] L KNEE PN X1M HEMA KHAN 07/10 Released w/o Limitations [facility] Family [facility]) [facility](S Physical Therapy) OUTPATIENT [id number] Pain in left knee KATHLEEN MENESES 07/21 Released w/o Limitations [facility](S Physica l Therapy ) [facility]([facility] ase Family Medicine Gold) OUTPATIENT [id number] r heel pain x2w HEMA CABELLO 12/01 Released with Work/Duty Limitations [facility] Family Medicin e Gold) [facility](Sub ase Occupatio nal Health - [facility]) OUTPATIENT [id number] [facility]/6 YULIET DAVIS 12/15 Released w/o Limitations [facility](S ubase Occupat ional Health [facility]) [facility](Sub ase Occupatio nal Health [facility]) OUTPATIENT [id number] Notes Entered by: BRIGITTE DAVIS 30 Dec 2015 1329 ------- ------- ------- ------- -- REVIEW LEAD LABS MIGNON POMPA 12/29 Released w/o Limitations [facility](S ubase Occupat ional Health - [facility]) [facility]([facility] Family Medicine Gold) OUTPATIENT [id number] swollen right eye HEMA CABELLO 01/06 Released with Work/Duty Limitations [facility] Family Medicin [facility] Gold) [facility](Sub ase Family Medicine Gold) OUTPATIENT [id number] f/u right eye HEMA CABELLO 01/06 Released w/o Limitations [facility]) [facility](Sub ase Immunizat ions) OUTPATIENT [id number] Notes Entered by: FEMI MATT 09 Feb 2016 1252 ------- ------- ------- ------- -- FEMI MARROQUIN 02/08 Released w/o Limitations [facility](S ub[facility] Immuniz ations) [facility]([facility] ase Family Medicine Gold) OUTPATIENT [id number] cold sx x 3 wks HEMA CABELLO 03/31 Released w/o Limitations [facility] Family Medic[facility]) [facility](S Hear Con [facility]) OUTPATIENT [id number] Notes Entered by: BRIGITTE DAVIS 06 May 2016 0837 ------- ------- ------- ------- -- ANNUAL HCP AUDIO YULIET DAVIS 05/06 Released w/o Limitations [facility]) [facility](Sub ase Occupatio nal Health - [facility]) OUTPATIENT [id number] JS/KELVIN /172/21 0/503/5 08602 HEMA BANSAL 05/06 Released w/o Limitations [facility](S ubase Occupat ional Health - [facility]) [facility](Sub ase Occupatio nal Health - [facility]) OUTPATIENT [id number] Luz Elena/161 /124 HEMA BANSAL 06/01 Released w/o Limitations [facility](S ubase Occupat ional Health - EC) [facility](Sub ase Family Medicine Gold) OUTPATIENT [id number] [facility] f/u ankle injury Jun 04 during bhumika ball during cmd PT HAN AVELAR 06/04 Released w/o Limitations [facility] Family Medicin [facility] Gold) [facility](Sub ase Family Medicine Gold) TELE CONSULT [id number] Notes Entered by: Carlos MANZANARES 16 Jun 2016 1433 ------- ------- ------- ------- -- med renewal HEMA CABELLO 06/16 [facility]) [facility](Sub ase Family Medicine Gold) OUTPATIENT [id number] FU BLOOD PRESSUR E HEMA CABELLO 07/27 Released w/o Limitations [facility]) [facility](Sub ase Immunizat ions) OUTPATIENT [id number] Notes Entered by: Lakshmi SOSA 19 Aug 2016 0710 ------- ------- ------- ------- -- TYPHOID TOLU SOSA 08/19 Released w/o Limitations [facility](S ubase Immuniz ations) [facility](Sub ase Optometry Clinic) OUTPATIENT [id number] eye exam VIVIAN HOUSE 08/19 Released w/o Limitations [facility](S ubase Optomet ry Clinic) [facility](B Family Medicine) OUTPATIENT [id number] [facility] DOMINIQUE MAS 08/24 Released w/o Limitations [facility](B Family Medicin e) [facility]([facility] Occupatio [facility] - [facility]) TELE CONSULT [id number] Notes Entered by: YU POMPA 03 Sep 2016 0934 ------- ------- ------- ------- -- f/u re lab results #124 MIGNON POMPA 09/03 Referred for Appointment [facility](S ubase Occupat [facility] - [facility]) [facility](SUB ASE Physical Exam) OUTPATIENT [id number] oversea s REJI Freeman 09/03 Released w/o Limitations [facility](S UBASE Physica l Exam) [facility](Sub ase Family Medicine Gold) OUTPATIENT [id number] FU L FOOT PN HEMA CABELLO 09/07 Released w/o Limitations [facility](S ub[facility] Family Medicin e Gold) [facility](B Family Medicine) OUTPATIENT [id number] vas procedu re POMOLOGISTAZUCENA 09/17 Released w/o Limitations [facility](B Family Medicin e) [facility](Sub ase Family Medicine Gold) OUTPATIENT [id number] 31y r shoulde r cx x1d HEMA CABELLO 10/01 Released w/o Limitations [facility] Family Medicin [facility]) [facility](Sub ase Family Medicine Gold) OUTPATIENT [id number] F/U VASECTO MY PROC HAVING CX ABOUT STITCHE S NOT LEAVING HEMA CABELLO 11/02 Released w/o Limitations [facility](S ub[facility] Family Medicin e Gold) [facility] [id number] Notes Entered by: YU POMPA 26 Nov 2016 1154 ------- ------- ------- ------- -- f/u re lab results #124 MIGNON POMPA 11/26 Released w/o Limitations [facility] [id number] [facility] [place]6 YULIET DAVIS 12/01 Released w/o Limitations [facility](Sub ase Family Medicine Gold) OUTPATIENT [id number] f/u beta 2 protien levels HEMA CABELLO 12/01 Released w/o Limitations [facility](S ub[facility] Family Medicin e Gold) [facility] [id number] Notes Entered by: YU POMPA 03 Dec 2016 1024 ------- ------- ------- ------- -- f/u re lab results #124 MIGNON POMPA 12/03 Released w/o Limitations [facility]([facility]) TELE CONSULT [id number] Notes Entered by: YU POMPA 03 Dec 2016 1041 ------- ------- ------- ------- -- f/u to lab results MIGNON POMPA 12/03 Referred for Appointment [facility]-For lakshmi Guido(S [facility]) [facility] OUTPATIENT [id number] Theater Provider 04/27 Released w/o Limitations [facility] OUTPATIENT [id number] Theater Provider 06/01 Released w/o Limitations [facility] OUTPATIENT [id number] Theater Provider 06/25 Released w/o Limitations [facility] OUTPATIENT [id number] 5 Theater Provider 02/07 Released w/o Limitations [facility] OUTPATIENT [id number] 1 Theater Provider 06/14 Released w/o Limitations [facility] OUTPATIENT [id number] 8 Theater Provider 07/03 Released w/o Limitations [facility] OUTPATIENT [id number] 8 Theater Provider 07/19 Released w/o Limitations [facility] OUTPATIENT [id number] 5 Theater Provider 08/28 Released w/o Limitations [facility] OUTPATIENT [id number] 3 Theater Provider 09/12 Released w/o Limitations [facility] [place] OUTPATIENT [id number] Notes Entered by: TIFFANIE GARCÍA I 07 Nov 2018 0839 ------- ------- ------- ------- -- KOFFI CARABALLO 11/06 Released w/o Limitations [facility] [place] OUTPATIENT [id number] 4 Theater Provider 09/25 Released w/o Limitations [facility] OUTPATIENT [id number] 3 Theater Provider 10/08 Released w/o Limitations [facility] OUTPATIENT [id number] 8 Theater Provider 02/18 Released w/o Limitations [facility] OUTPATIENT [id number] 3 Theater Provider 11/07 Released w/o Limitations [facility] Between Visit [id number] 05/15 Discharge Disposition: Home or Self Care 0100[facility] [address] [place] [address] Outpatient [id number] KRISTYN EZ 05/15 Discharge Disposition: Home or Self Care [address] Dental [id number] VAL MOLINA S 05/25 Discharge Disposition: Home or Self Care 0C-N [address] Clinic [id number] 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 Procedure Procedure Type Code Date Perfomer Comments Sourc e No data available for this section [id number] [facility] [place] ALCOHOL AND/OR DRUG SERVICES; INTENSIVE OUTPATIENT ([place] [facility] OPERATES >= 3 HRS/DAY & >= 3 DAYS/WK & IS BASED ON INDIVID TX PLAN),INCL ASSESS,BLUNGER;CRISI S INTERVENTN,& ACT THERAPIES/EDUC 019 DoD ALCOHOL AND/OR DRUG SERVICES; INTENSIVE OUTPATIENT ([place] [facility] OPERATES >= 3 HRS/DAY & >= 3 DAYS/WK & IS BASED ON INDIVID TX PLAN),INCL ASSESS,BLUNGER;CRISI S INTERVENTN,& ACT THERAPIES/EDUC 019 DoD ALCOHOL AND/OR DRUG SERVICES; INTENSIVE OUTPATIENT ([place] [facility] OPERATES >= 3 HRS/DAY & >= 3 DAYS/WK & IS BASED ON INDIVID TX PLAN),INCL ASSESS,BLUNGER;CRISI S INTERVENTN,& ACT THERAPIES/EDUC 019 DoD ALCOHOL AND/OR DRUG SERVICES; INTENSIVE OUTPATIENT ([place] [facility] OPERATES >= 3 HRS/DAY & >= 3 DAYS/WK & IS BASED ON INDIVID TX PLAN),INCL ASSESS,BLUNGER;TE Gonzalez INTERVENTN,& ACT THERAPIES/EDUC [facility] BRIEF EMOTIONAL/BEHAVIORAL ASSESSMENT (EG, DEPRESSION INVENTORY, ATTENTION-DEFICIT/HY PERACTIVITY DISORDER [ADHD] SCALE), WITH SCORING AND DOCUMENTATION, PER STANDARDIZED INSTRUMENT [facility] ALCOHOL AND/OR DRUG SERVICES; CASE MANAGEMENT [facility] YELLOW FEVER VACCINE, LIVE, FOR SUBCUTANEOUS USE [facility] BUPRENORPHINE IMPLANT, 74.2 MG [facility] DETERMINATION OF REFRACTIVE STATE [facility] ANALYSIS OF CLINICAL DATA STORED IN COMPUTERS (EG, ECGS, BLOOD PRESSURES, HEMATOLOGIC DATA) [facility] SKIN TEST; TUBERCULOSIS, INTRADERMAL [facility] DETERMINATION OF REFRACTIVE STATE [facility] DETERMINATION OF REFRACTIVE STATE [facility] DETERMINATION OF REFRACTIVE STATE [facility] PHOTOREFRACTIVE KERATECTOMY (PRK) [facility] PHYS/OTH QUALIFIED HEALTH TRACK REPAIRER HELPER QUALIFIED,EDUCATION, TRAIN,LICENSURE/REGU LATION (WHEN APPLICABLE) EDUC SER RENDERED TO PATS IN A GRP SETTING (EG,,OBESITY ,OR DIABETIC INSTRUCT) [facility] VISUAL FIELD EXAMINATION, UNI OR BILATERAL, WITH MEDICAL DIAGNOSTIC EVAL; INTERMEDIATE EXAM (EG, AT LEAST 2 ISOPTERS ON GOLDMANN PERIMETER, OR SEMIQUANT, AUTO SUPRATHRESHOLD SCREEN PROGRAM, DANGELO [facility] OPHTHALMOLOGICAL SERVICES: MEDICAL EXAMINATION AND EVALUATION WITH INITIATION OF DIAGNOSTIC AND TREATMENT PROGRAM; COMPREHENSIVE, NEW PATIENT, 1 OR MORE VISITS [facility] OPHTHALMIC ULTRASOUND, ECHOGRAPHY, DIAGNOSTIC; CORNEAL PACHYMETRY, UNILATERAL OR BILATERAL (DETERMINATION OF CORNEAL THICKNESS) [facility] AUDIOMETRIC TESTING OF GROUPS [facility] PRESCRIPTION OF OPTICAL AND PHYSICAL CHARACTERISTICS OF AND FITTING OF CONTACT LENS, WITH MEDICAL SUPERVISION OF ADAPTATION; CORNEAL LENS, BOTH EYES, EXCEPT FOR APHAKIA [facility] PRESCRIPTION OF OPTICAL AND PHYSICAL CHARACTERISTICS OF AND FITTING OF CONTACT LENS, WITH MEDICAL SUPERVISION OF ADAPTATION; CORNEAL LENS, BOTH EYES, EXCEPT FOR APHAKIA [facility] PURE TONE AUDIOMETRY (THRESHOLD); AIR ONLY 011 DoD FITTING OF SPECTACLES, EXCEPT FOR APHAKIA; MONOFOCAL DoD VASECTOMY, UNILATERAL OR BILATERAL (SEPARATE PROCEDURE), INCLUDING POSTOPERATIVE SEMEN EXAM(S) DoD DETERMINATION OF REFRACTIVE STATE DoD IMMUNIZATION ADMINISTRATION (INCLUDES PERCUTANEOUS, INTRADERMAL, SUBCUTANEOUS, OR INTRAMUSCULAR INJECTIONS); 1 VACCINE (SINGLE OR COMBINATION VACCINE/TOXOID) DoD PURE TONE AUDIOMETRY (THRESHOLD), AUTOMATED; AIR ONLY DoD SPIROMETRY, INCLUDING GRAPHIC RECORD, TOTAL AND TIMED VITAL CAPACITY, EXPIRATORY FLOW RATE MEASUREMENT(S), WITH OR WITHOUT MAXIMAL VOLUNTARY VENTILATION DoD IMMUNIZATION ADMINISTRATION (INCLUDES PERCUTANEOUS, INTRADERMAL, SUBCUTANEOUS, OR INTRAMUSCULAR INJECTIONS); 1 VACCINE (SINGLE OR COMBINATION VACCINE/TOXOID) DoD THERAPEUTIC PROCEDURE, 1 OR MORE AREAS, EACH 15 MINUTES; THERAPEUTIC EXERCISES TO DEVELOP STRENGTH AND ENDURANCE, RANGE OF MOTION AND FLEXIBILITY DoD SPIROMETRY, INCLUDING GRAPHIC RECORD, TOTAL AND TIMED VITAL CAPACITY, EXPIRATORY FLOW RATE MEASUREMENT(S), WITH OR WITHOUT MAXIMAL VOLUNTARY VENTILATION DoD DESTRUCTION (EG, LASER SURGERY, ELECTROSURGERY, CRYOSURGERY, CHEMOSURGERY, SURGICAL CURETTEMENT), OF BENIGN LESIONS OTHER THAN SKIN TAGS OR CUTANEOUS VASCULAR PROLIFERATIVE LESIONS; UP TO 14 LESIONS DoD SCREENING TEST OF VISUAL ACUITY, QUANTITATIVE, BILATERAL DoD OPHTHALMOLOGICAL SERVICES: MEDICAL EXAMINATION AND EVALUATION, WITH INITIATION OR CONTINUATION OF DIAGNOSTIC AND TREATMENT PROGRAM; INTERMEDIATE, ESTABLISHED PATIENT DoD OPHTHALMOLOGICAL SERVICES: MEDICAL EXAMINATION AND EVALUATION, WITH INITIATION OR CONTINUATION OF DIAGNOSTIC AND TREATMENT PROGRAM; INTERMEDIATE, ESTABLISHED PATIENT [facility] OPHTHALMOLOGICAL SERVICES: MEDICAL EXAMINATION AND EVALUATION WITH INITIATION OF DIAGNOSTIC AND TREATMENT PROGRAM; INTERMEDIATE, NEW PATIENT DoD SLINGS DoD PURE TONE AUDIOMETRY (THRESHOLD); AIR ONLY DoD PURE TONE AUDIOMETRY (THRESHOLD); AIR ONLY DoD SCREENING TEST OF VISUAL ACUITY, QUANTITATIVE, BILATERAL DoD SCREENING TEST OF VISUAL ACUITY, QUANTITATIVE, BILATERAL DoD IV Infusion For Hydration 31 Minutes To 1 Hour IV Infusion For Hydration 31 Minutes To 1 Hour [id number] 019 Theater Provider [facility] Alcohol and/or drug services; intensive outpatient (treatment program that operates at least 3 hours/day and at least 3 days/week and is based on an individualized treatment plan), including a e ment, counseling; crisis intervention, and activity therapies or education 019 NGOZI ESPARZA [facility] Breathalyzer For Blood Alcohol Content Breathalyzer For Blood Alcohol Content [id number] 019 NGOZI ESPARZA N 0.00 [facility] Alcohol and/or drug services; intensive outpatient (treatment program that operates at least 3 hours/day and at least 3 days/week and is based on an individualized treatment plan), including a e ment, counseling; crisis intervention, and activity therapies or education 019 NGOZI ESPARZA [facility] Breathalyzer For Blood Alcohol Content Breathalyzer For Blood Alcohol Content 22317 019 NGOZI ESPARZA N 0.00 [facility] Alcohol and/or drug services; intensive outpatient (treatment program that operates at least 3 hours/day and at least 3 days/week and is based on an individualized treatment plan), including a e ment, counseling; crisis intervention, and activity therapies or education 019 NGOZI ESPARZA [facility] Breathalyzer For Blood Alcohol Content Breathalyzer For Blood Alcohol Content 12406 019 NGOZI ESPARZA N 0.00 [facility] Psychiatric Evaluation Psychiatric Evaluation 84947 019 KRYSTIAN HUNTER [facility] Alcohol and/or drug services; case management 019 KIMO MOTLEY Alcohol and/or drug a e ment 019 KIMO MOTLEY Breathalyzer For Blood Alcohol Content Breathalyzer For Blood Alcohol Content 48006 019 KIMO MOTLEY Intervention And Counseling On Ce ation Of Tobacco Use Intervention And Counseling On Cessation Of Tobacco Use 4000F 018 Theater Provider [facility] Audiogram (Screening) Audiogram (Screening) 36534 018 Theater Provider [facility] Surgery Of Male Genitalia Vasectomy Surgery Of Male Genitalia Vasectomy 98762 017 AZUCENA MAGANA Anesthesia Lower Abdomen For Vasectomy, Unilateral/Bilateral Anesthesia Lower Abdomen For Vasectomy, Unilateral/Bilatera l 59081 017 AZUCENA MAGANA Determination Of Refractive State Determination Of Refractive State 33523 017 [facility]IVIAN HOUSE Ophthalmological New Patient Start Comprehensive Care Ophthalmological New Patient Start Comprehensive Care 29667 017 [facility]IAN HOUSE Typhoid Vaccine Vi Capsular Polysaccharide, For Intramus Use Typhoid Vaccine Vi Capsular Polysaccharide, For Intramus Use 54051 017 TOLU SOSA Typhoid, ViCPs; Series #: 1; .5 mL; IM; Left Arm; Mfg: [employer]; Lot: [id number]. DoD Immunization Administration One Vaccine Immunization Administration One Vaccine 11214 017 TOLU SOSA Spirometry Spirometry 48918 017 HEMA BANSAL Threshold Audiogram (Pure Tone) Automated Threshold Audiogram (Pure Tone) Automated 0208T 017 YULIET DAVIS DoD Immunization Administration One Vaccine Immunization Administration One Vaccine 80477 016 FEMI MATT Physical Therapy: ___ Se ion Segments, 15 Minutes Each Physical Therapy: ___ Session Segments, 15 Minutes Each 21568 016 KATHLEEN MENESES Physical Medicine Physical Therapy Evaluation Physical Medicine Physical Therapy Evaluation 97098 016 KATHLEEN MENESES Spirometry Spirometry 55614 016 RAD HENNING Destruction Of Flat Warts By Cryosurgery Up To 14 Lesions Destruction Of Flat Warts By Cryosurgery Up To 14 Lesions 69324 016 GEENA VALERA Screening Test Of Visual Acuity, Quantitative, Bilateral Screening Test Of Visual Acuity, Quantitative, Bilateral 19625 016 HEMA CABELLO Ophthalmological Prior Patient Start Intermediate Level Care Ophthalmological Prior Patient Start Intermediate Level Care 00680 015 [facility]SE Ophthalmological Prior Patient Start Intermediate Level Care Ophthalmological Prior Patient Start Intermediate Level Care 40859 015 [facility]IVIAN HOUSE Ophthalmological New Patient Start Intermediate Level Care Ophthalmological New Patient Start Intermediate Level Care 85323 015 [facility]IAN HOUSE Threshold Audiogram (Pure Tone) Threshold Audiogram (Pure Tone) 80173 015 CODI NICHOLAS Threshold Audiogram (Pure Tone) Threshold Audiogram (Pure Tone) 62918 015 CODI NICHOLAS [place] Screening Test Of Visual Acuity, Quantitative, Bilateral Screening Test Of Visual Acuity, Quantitative, Bilateral 82203 015 RAD HENNING Spirometry Spirometry 15574 015 RAD HENNING Screening Test Of Visual Acuity, Quantitative, Bilateral Screening Test Of Visual Acuity, Quantitative, Bilateral 49147 015 CHINA MIRANDA Ophthalmological Prior Patient Start Comprehensive Care Ophthalmological Prior Patient Start Comprehensive Care 39402 AZUCENA SHEFFIELD Determination Of Refractive State Determination Of Refractive State 33583 AZUCENA SHEFFIELD Postoperative Visit, Without Charge Postoperative Visit, Without Charge 84520 013 REMIGIO BLUE Determination Of Refractive State Determination Of Refractive State 84738 REMIGIO BLUE Postoperative Visit, Without Charge Postoperative Visit, Without Charge 82980 013 AZUCENA SHEFFIELD Determination Of Refractive State Determination Of Refractive State 56677 AZUCENA SHEFFIELD Photorefractive keratectomy (PRK) JIM FIGUEROA Dr.-[facility] [employer] Educational Services -Supervised Group Educational Services 97311 JIM FIGUEROA Ophthalmological Prior Patient Start Intermediate Level Care Ophthalmological Prior Patient Start Intermediate Level Care 51489 013 JIM FIGUEROA Visual [place] Test Intermediate Examination Visual [place] Test Intermediate Examination 84387 AZUCENA SHEFFIELD Scanning Computerized Ophthalmic Diagnostic Imaging Anterior Segment, Unilateral Scanning Computerized Ophthalmic Diagnostic Imaging Anterior Segment, Unilateral 50682 AZUCENA SHEFFIELD Determination Of Refractive State Determination Of Refractive State 71150 AZUCENA SHEFFIELD Ophthalmological Prior Patient Start Comprehensive Care Ophthalmological Prior Patient Start Comprehensive Care 48395 AZUCENA SHEFFIELD Determination Of Refractive State Determination Of Refractive State 39828 013 REMIGIO BLUE Ophthalmological New Patient Start Comprehensive Care Ophthalmological New Patient Start Comprehensive Care 62703 REMIGIO BLUE Computerized Corneal Topography Computerized Corneal Topography 08076 013 REMIGIO BLUE Corneal Pachymetry Both Eyes Corneal Pachymetry Both Eyes 99231 REMIGIO BLUE Scanning Computerized Ophthalmic Diagnostic Imaging Retina Scanning Computerized Ophthalmic Diagnostic Imaging Retina 17379 REMIGIO BLUE Determination Of Refractive State Determination Of Refractive State 39122 013 REMIGIO BLUE Audiometry Group Testing Audiometry Group Testing 72494 CA SMITH Prescription & Fitting Bilateral Corneal Lenses (Not Aphakia Prescription & Fitting Bilateral Corneal Lenses (Not Aphakia 21540 MICHELLE HENNING Determination Of Refractive State Determination Of Refractive State 57526 MICHELLE HENNING Ophthalmological Prior Patient Start Comprehensive Care Ophthalmological Prior Patient Start Comprehensive Care 12944 012 MICHELLE HENNING Prescription & Fitting Bilateral Corneal Lenses (Not Aphakia Prescription & Fitting Bilateral Corneal Lenses (Not Aphakia 92072 012 MICHELLE HENNING [employer] Fitting Monofocals (Not For Aphakia) [employer] Fitting Monofocals (Not For Aphakia) 74456 012 MICHELLE HENNING Determination Of Refractive State Determination Of Refractive State 08501 012 MICHELLE HENNING Ophthalmological Prior Patient Start Comprehensive Care Ophthalmological Prior Patient Start Comprehensive Care 91751 012 MICHELLE HENNING [employer] Fitting Monofocals (Not For Aphakia) [employer] [facility] Fitting Monofocals (Not For Aphakia) 88204 010 NAM TYLER Determination Of Refractive State Determination Of Refractive State 25947 010 NAM TYLER Ophthalmological New Patient Start Comprehensive Care Ophthalmological New Patient Start Comprehensive Care 49146 010 NAM TYLER Determination Of Refractive State Determination Of Refractive State [id number] 12 TITUS LEACH [facility] Spectacles Services Fitting Monofocals (Not For Aphakia) Spectacles Services Fitting Monofocals (Not For Aphakia) 10822 TITUS LEACH [facility] Screening Test Of Visual Acuity, Quantitative, Bilateral Screening Test Of Visual Acuity, Quantitative, Bilateral 24241 TITUS LEACH [facility] Audiometry Group Testing Audiometry Group Testing 90332 AKHIL CALVO [facility] Special Santos Services Analysis Of Computerized Data Special Services Analysis Of Computerized Data 58910 AKHIL CALVO [facility] Threshold Audiogram (Pure Tone) Threshold Audiogram (Pure Tone) 20952 AKHIL CALVO [facility] Social History Combined list of available smoking, tobacco, and other social history from Department of Defense and Veterans Affairs facilities. Social History Type Response Date Comment [facility] e Sex Representation Male (finding) 12/05/2016 Un known Organization Sexual Orientation [address] [place] [address] [place] Gender identity [address] [place] [address] C [place] This section is an empty social history section. [facility] Assessment and Plan Combined list of future care activities from Department of Defense and Veterans Affairs facilities (e.g., assessment and plan notes, appointments, orders, and referrals). Additional future care activities may be listed in the Plan of Care section. Result Assessment and Plan Date Source Assessment and Plan Extracted from:Title : Office Clinic Note Author: KAITLIN MIGUEL, [facility] Date: 05/30/24 1. 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 [id number] was screened, and electronic health record. NOT CURRENTLY FFD/WWD. A waiting P CM clearance f or H [place], n o f/u s soni 2 019. Inquiry f orwarded for c hronic l ower b ack pain. Managed w [facility] Physical Therapy. A dvised to follow-up with PCM if he has any new concerns or medical issues. Please refer to uploaded suitability screening for further details. [facility](FMF/AW/SW) Kaitlin Miguel Independent Duty Job Service Specialist LCPO MRD/Optometry [facility] DSN: [phone] E-mail: [email or web address] Extracted from:Title: Low Back Pain Author: CHRIS GOODSON, [facility] Date: 01/17/21 Orders: meloxicam, 1 tab(s), Oral, Daily, # 90 tab(s), 0 total refill(s), Maintenance, Other Reason (Rx) [External Rx] MRI Spine Lumbar w/o Contrast LOW BACK PAIN ASSESSMENT AND PLAN: 35 y/o male with low back pain. Gradual, a nd worsening. AFROM, no concerning findings for cauda equina syndrome. P revious x-rays show marginal narrowing and osteophytes in the Lumbar spine with an Impression of Spondylosis. Physical n egative for red flags but shows pain elicited with flexion and extension. - Recommended continued ice/heat alternating with M obic as ordered. - Stretching and strengthening techniques explained to patient - Follow up after completion of Physical Therapy - Recommend gentle stretching as tolerated and to avoid bed rest. - Avoid heavy lifting until symptoms have improved - Pt verbally understands and agrees with treatment plan at this time. 11/01/[address] [place] [address] Assessment and Plan Extracted from:Title : Office Clinic Note Author: KAITLIN MIGUEL, [facility] Date: 05/30/24 1. 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 [id number] was screened, and electronic health record. NOT CURRENTLY FFD/WWD. A waiting P CM clearance f or H [place], n o f/u s soni 2 019. Inquiry f orwarded for c hronic l ower b ack pain. Managed w ith Physical Therapy. A dvised to follow-up with PCM if he has any new concerns or medical issues. Please refer to uploaded suitability screening for further details. [facility](FMF/AW/SW) Kaitlin Miguel Independent Duty Job Service Specialist LCPO MRD/Optometry [facility] DSN: [phone] E-mail: [email or web address] Extracted from:Title: Low Back Pain Author: CHRIS GOODSON, [facility] Date: 01/17/21 Orders: meloxicam, 1 tab(s), Oral, Daily, # 90 tab(s), 0 total refill(s), Maintenance, Other Reason (Rx) [External Rx] MRI Spine Lumbar w/o Contrast LOW BACK PAIN ASSESSMENT AND PLAN: 35 y/o male with low back pain. Gradual, a nd worsening. AFROM, no concerning findings for cauda equina syndrome. P revious x-rays show marginal narrowing and osteophytes in the Lumbar spine with an Impression of Spondylosis. Physical n egative for red flags but shows pain elicited with flexion and extension. - Recommended continued ice/heat alternating with M obic as ordered. - Stretching and strengthening techniques explained to patient - Follow up after completion of Physical Therapy - Recommend gentle stretching as tolerated and to avoid bed rest. - Avoid heavy lifting until symptoms have improved - Pt verbally understands and agrees with treatment plan at this time. 11/01/2024 [facility]29[facility] Functional Status Combined list of recent functional and cognitive assessments recorded at Department of Defense and Veterans Affairs (VA).VA Functional Hickman Measurement (FIM) Scale: 1 = Total Assistance (Subject = 0% +), 2 = Maximal Assistance (Subject = 25% +), 3 = Moderate Assistance (Subject = 50% +), 4 = Minimal Assistance (Subject = 75% +), 5 = Supervision, 6 = Modified Hickman (Device), 7 = Complete Hickman (Timely, Safely). Assessment Date/Time Source Assessment Type Assessment Skill Assessment Score Assessment Details No data available for this section
== END 2024-11-01 09:10 | disposition home or self-care (01) ==
LOC: HO.HOS 08:47
PROVIDERS: PCP Internal Medicine; Visit Provider Physician Assistant
DX: M75.101 Unspecified rotator cuff tear or rupture of right shoulder, not specified as traumatic (principal)
CPT/HCPCS: 99213

== ENCOUNTER → 2024-11-01 08:40 | Outpatient (BNVA) | payer OTHER, SELFPAY | PROVIDERS: PCP Internal Medicine; Visit Provider Physician Assistant | DX: M75.101 Unspecified rotator cuff tear or rupture of right shoulder, not specified as traumatic (principal); Z79.899 Other long term (current) drug therapy; Z79.52 Long term (current) use of systemic steroids | CPT/HCPCS: 99212 ==

== ENCOUNTER 2024-11-24 07:50 | Outpatient (REF) | payer OTHER, SELFPAY ==
--- OUTSIDE RECORDS SUMMARY | 2005-08-19 11:16 | XMS_ITS | Continuity of Care Document ---
Author Organization [facility] Address [address] [place] [address] Phone Care Team Providers Care Registered Nurse Maternity Name Role Phone Unavailable Unavailable Unavailable Procedures Procedure Date Office/outpatient visit,[facility], [facility] 2005 Office/outpatient visit,[facility], [facility] 2005 Advance Directives Directive Yes / No Effective Date File Name No Information Encounters Encounter Description Practice Location Reason(s) For Visit Diagnoses Date Provider Providers Copied on Encounter Office/outpat ient visit,est, mod [facility], [address], [place], [place], [id number], [place] tel:[phone] [facility] No Information No Information Office/outpat ient visit,est, low [facility], [address], [place], [place], [id number], [place] tel:[phone] [facility] No Information No Information Family History Family Member Type Diagnosis Age At Onset No Information Payers Payer name Insurance type Covered libertarian ID Authoriza tiasif(s) [facility] PACC CI [id number] Social History Type Description Quantity Date Captured [...]
[2024-11-24 11:09] LABS: Hematocrit 42.3 % (42.0-52.0); Hemoglobin 14.7 g/dl (14.0-18.0); Mean Corpuscular HGB Conc 34.8 g/dl (31.0-36.0); Mean Corpuscular Hemoglobin 29.6 pg (27.0-33.0); Mean Corpuscular Volume 85.1 fL (80.0-98.0); NRBC Abs Auto 0.000 X10*3/uL (0.0-0.012); NRBC Pct Auto 0.0 /100WBC (0.0-0.2); Platelet Count 285 X10*3/uL (160-400); Red Blood Count 4.97 X10*6/uL (4.60-5.80); White Blood Count 5.4 X10*3/uL (4.8-10.8)
[2024-11-24 11:50] LABS: Alanine Aminotransferase 34 U/L (0-40); Albumin Level 4.4 g/dL (3.5-5.0); Alkaline Phosphatase 42 U/L (39-117); Anion Gap 13 (12-20); Aspartate Amino Transferase 31 U/L (5-37); Blood Urea Nitrogen 18 mg/dL (9-16); Calcium 8.9 mg/dL (8.4-10.2); Carbon Dioxide 24 mmol/L (22-29); Chloride 109 mmol/L (96-108); Cholesterol 170 mg/dL (<200); Estimated Glomerular Filt Rate > 60; HDL Cholesterol 46 mg/dL (>40); Potassium 4.2 mmol/L (3.3-5.1); Sodium 142 mmol/L (135-145); Total Protein 6.6 g/dL (6.5-8.0); Triglycerides 61 mg/dL (<150)
[2024-11-24 11:53] LABS: Thyroid Stimulating Hormone 1.12 uIU/mL (0.32-4.0)
[2024-11-24 13:32] LABS: Appearance Urine Clear; Glucose Urine UA Negative (Negative); PH 6.5 (5.0-9.0); Specific Gravity - Urine 1.025 (1.005-1.025)
== END 2024-11-24 07:51 | disposition home or self-care (01) ==
LOC: HO.HMGCLDS 07:50
PROVIDERS: PCP Internal Medicine; Visit Provider Internal Medicine
DX: I10 Essential (primary) hypertension (principal)
CPT/HCPCS: 36415; 80048; 80061; 80076; 81003; 84443; 85027

== ENCOUNTER 2025-01-24 08:43 | Outpatient (AMB) | payer OTHER, SELFPAY ==
--- OUTSIDE RECORDS SUMMARY | 2005-08-19 10:16 | XMS_ITS | Continuity of Care Document ---
Author Organization [facility] Address [address] [place] [address] Phone Care Team Providers Care Rules Examiner Name Role Phone Unavailable Unavailable Unavailable Procedures Procedure Date Office/outpatient visit,[facility], [facility] 2005 Office/outpatient visit,[facility], [facility] 2005 Advance Directives Directive Yes / No Effective Date File Name No Information Encounters Encounter Description Practice Location Reason(s) For Visit Diagnoses Date Provider Providers Copied on Encounter Office/outpat ient visit,est, mod [facility], [address], [place], [place], [id number], [place] tel:[phone] [facility] No Information 6 No Information Office/outpat ient visit,est, low [facility], [address], [place], [place], [id number], [place] tel:[phone] [facility] No Information No Information Family History Family Member Type Diagnosis Age At Onset No Information Payers Payer name Insurance type Covered green party ID Authoriza tiasif(s) [facility] PACC CI [id number] Social History Type Description Quantity Date Captured [...]
[2025-01-24 08:47] VITALS: BP 122/76; PULSE 81; O2SAT 97; BMI 33.1
--- NOTE | 2025-01-24 08:47 | A.OFFPC_ITS ---
Vital Signs 01/24/25 08:47 Height 5 ft 11 in Weight 237 lb BMI 33.1 BP 122/76 Blood Pressure Location Lt brachial Position Sitting Pulse 81 Pulse Source Pulse Oximeter Pulse Oximetry (%) 97 Oxygen Delivery Method Room Air Intake Visit Reasons: 6mth f/u Allergies Penicillins Allergy (Intermediate, Verified 01/24/25 08:48) Hives Tobacco use date assessed: 08/09/24 Dental Screening Dental Screen Date: 08/09/24 [facility] Medical History GERD (gastroesophageal reflux disease) HTN (hypertension) Plantar fasciitis, bilateral Left foot pain Encounter to establish care Surgical History [place] teeth extracted History of vasectomy History of photorefractive keratectomy (PRK) Family History Other Substance use disorder Social History Housing: House Alcohol intake: current Alcohol intake frequency: a few times a month Patient Tobacco Use Status: Former Tobacco user Tobacco use type: Cigarette e-Cigarette/Vaping Use: Never Used Second Hand Smoke Exposure: Yes service: Yes Current occupational status: employed Current occupation: [employer] Cognitive needs: No Hearing needs: No Vision needs: No Questionnaire Thrive Questionnaire Date Thrive assessed: 08/02/24 I am a: Patient What is your living situation today?: I have a steady place to live Within the past 12 months, did the food you bought not last and you didn't have the money to get more?: Never true Within the past 12 months, did you worry whether your food would run out before you got money to buy more?: Never true Do you have trouble paying for medicines?: No Do you have trouble getting transportation to medical appointments?: No Do you have trouble paying your heating and electricity bill?: No Do you have trouble taking care of your child, family member or friend?: No Do you have trouble with day-to-day activities such as bathing, preparing meals, shopping, managing finances, etc.?: No Are you currently unemployed and looking for a job?: No Are you interested in more education?: No Please select the resources that you would like help with: None Currently or been in a relationship where the following occur: No concerns reported THRIVE Score: 0 ELIAS-7 AMB Questionnaire ELIAS-7 Date ELIAS - 7 assessed: 08/09/24 Source: Developed by Drs. Shimon Stephenson, Brittni Licona, Vivek Huff and colleagues, with an educational yamileth from [employer]. Physical exam (Primary Care) Vital Signs: Last Vital Signs Pulse 81 01/24/25 08:47 BP 122/76 01/24/25 08:47 Pulse Ox 97 01/24/25 08:47 Oxygen Delivery Method Room Air 01/24/25 08:47 BMI result Body Mass Index 33.1 Tobacco/Smoking Status: Tobacco use Status Tobacco use date assessed 08/09/24 01/24/25 08:51 Patient Tobacco Use Status Former Tobacco user 01/24/25 08:51 Tobacco use type Cigarette 01/24/25 08:51 e-Cigarette/Vaping Use Never Used 01/24/25 08:51 Thrive Assessment: Date of Thrive Assessment Date Thrive assessed 08/02/24 01/24/25 08:51 Currently or been in a relationship where the following occur: No concerns reported Office Procedures Flu Questionnaire Does the patient have a severe egg allergy?: No Does the patient have severe life threatening allergies?: No Does the patient have a fever or illness today?: No Has the patient ever had Guillain-Orleans Syndrome?: No Has the patient ever had any past reaction to a flu shot?: No Immunizations Fluarix [id number] (PF) 45 mcg (15 mcg x 3)/0.5 mL IM syringe Performing Provider: Santos Walker MD [place] [facility] [facility] [place] [facility] Administered by: Anny Victor CMA on 01/24/25 09:13 Dose Route Admin Location Dispensed Lot Number Expiration Date [facility] Director Utilization Management 0.5 mL IM Right Deltoid 0.5 mL [id number] 09/17/25 [id number] [employer] VIS Given Date VIS Provided VIS Publication Date 01/24/25 Single Vaccine 24 Eligibility Eligibility Date Funding Source Not [facility] Eligible 01/24/25 Private Coding Level of Care Code Est Pt Level 4 (29522) Complex EM visit Add On G2211 Diagnoses Hypertension I10 Assessment & Plan Assessment & Plan (1) Hypertension: Code(s): I10 - Essential (primary) hypertension Category: Medical Plan: History of Present Illness - The patient is a 39-year-old male presenting for a routine follow-up. - He reports feeling well and denies any current health issues. - He is currently taking omeprazole and hydrochlorothiazide. - His last blood work was in November and was noted to be normal. Social History - Employment: The patient is in the [employer]. - Relocation: He and his family will be moving to [place], [place] in February, as he is transferring to the [employer] [employer]. 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 Review of Systems - Constitutional: The patient reports feeling good and denies any health issues. Physical Exam General: Cooperative and healthy appearing Nutritional Appearance: Well nourished Orientation/consciousness: Patient oriented x3 Limitations: No limitations Head: Normal to inspection General: Appearance normal, both eyes and all related structures Neck: Normal visual inspection Chest: Normal palpation of entire chest wall Respiratory: N ormal respiratory effort Neurology: Patient oriented x3, in good health Results - Labs: Blood work from November was all fine. Plan - Medications: Refills for omeprazole and hydrochlorothiazide will be provided to ensure the patient has an adequate supply for his upcoming move in February. - Vaccinations: An influenza vaccine was administered today. - Labs: No new blood work is required at this time as recent labs from November were normal. - Follow-up: The patient will establish care with a new provider after his relocation. Discussion Notes I reviewed the patient's recent blood work from November, which was normal, and we agreed that no further testing is needed at this time. I will provide refills for his omeprazole and hydrochlorothiazide to last through his upcoming move. We also discussed and administered an influenza vaccination during today's visit. Patient Instructions - You will receive a flu shot today. - Your prescriptions for omeprazole and hydrochlorothiazide will be refilled. - No new blood tests are needed at this time. - Make sure to find a new doctor to continue your care after you move to [place]. Orders: Orders Influenza [id number] Immunization Today Z23 - Encounter for immunization
== END 2025-01-24 09:14 | disposition home or self-care (01) ==
LOC: HO.HMCH 08:44
PROVIDERS: PCP Internal Medicine; Visit Provider Internal Medicine
DX: Z23 Encounter for immunization (principal); I10 Essential (primary) hypertension

== ENCOUNTER → 2025-01-24 08:43 | Outpatient (BNVA) | payer OTHER, SELFPAY | PROVIDERS: PCP Internal Medicine; Visit Provider Internal Medicine | DX: I10 Essential (primary) hypertension (principal); Z23 Encounter for immunization | CPT/HCPCS: 90471; 90656; 99212 ==

== ENCOUNTER 2025-01-29 09:11 | Outpatient (AMB) | payer OTHER, SELFPAY ==
--- OUTSIDE RECORDS SUMMARY | 2005-08-19 10:16 | XMS_ITS | Continuity of Care Document ---
Author Organization [facility] Address [address] [place] [address] Phone Care Team Providers Care Motion Picture Photographer Name Role Phone Unavailable Unavailable Unavailable Procedures Procedure Date Office/outpatient visit,[facility], [facility] 2005 Office/outpatient visit,[facility], [facility] 2005 Advance Directives Directive Yes / No Effective Date File Name No Information Encounters Encounter Description Practice Location Reason(s) For Visit Diagnoses Date Provider Providers Copied on Encounter Office/outpat ient visit,est, mod [facility], [address], [place], [place], [id number], [place] tel:[phone] [facility] No Information 6 No Information Office/outpat ient visit,est, low [facility], [address], [place], [place], [id number], [place] tel:[phone] [facility] No Information No Information Family History Family Member Type Diagnosis Age At Onset No Information Payers Payer name Insurance type Covered green party ID Authoriza tiasif(s) [facility] PACC CI [id number] Social History Type Description Quantity Date Captured Comments Sex Male Smoking Status No Information Chief Complaint And Reason For Visit No Information Reason For Referral Reason For Referral No Information History Of Present Illness Encounter Date Complaint History Of Prese nt Illness No Information Functional Status Date Functional Assessmen t No Information Instructions Date Instruction Additional Infor mation No Information Assessments Type Assessment Date No Information Patient Care Teams Name Effective Dates (start - stop) Status Members No Information
--- NOTE | 2025-01-29 09:40 | MHC.OFFVIS ---
Intake Visit Reasons: Right shoulder inj, last inj 10/26/24 Intake Note: Mr. Veliz is a 39-year-old male who presents to the office today for right shoulder injection. Last cortisone injection was 10/26/2024 at the [place] [facility]. Patient reports this injection did not give him any relief. He is looking to see if he can have a repeat injection in the office today. Allergies Penicillins Allergy (Intermediate, Verified 01/24/25 08:48) Hives HPI HPI Right shoulder inj, last inj 10/26/24: Details: Mr. Veliz is a 39-year-old male who presents to the office today for right shoulder injection. Last cortisone injection was 10/26/2024 at the [facility]. Patient reports this injection did not give him any relief. He is looking to see if he can have a repeat injection in the office today. [facility] Medical History GERD (gastroesophageal reflux disease) HTN (hypertension) Plantar fasciitis, bilateral Left foot pain Encounter to establish care Surgical History [place] teeth extracted History of vasectomy History of photorefractive keratectomy (PRK) Family History Other Substance use disorder Social History Housing: House Alcohol intake: current Alcohol intake frequency: a few times a month Patient Tobacco Use Status: Former Tobacco user Tobacco use type: Cigarette e-Cigarette/Vaping Use: Never Used Second Hand Smoke Exposure: Yes service: Yes Current occupational status: employed Current occupation: [employer] Cognitive needs: No Hearing needs: No Vision needs: No Review of Systems Const All systems reviewed & are unremarkable except as noted in HPI and below Physical Exam Const General: cooperative, healthy appearing and no acute distress Resp Effort & Inspection: normal respiratory effort and able to speak in complete sentences Extrem Other: Right shoulder: Normal to inspection. No ecchymosis, erythema, or edema. Full shoulder ROM in all planes. Negative cross-body reach. 5/5 strength with belly press, lift-off and empty can. However, patient reports pain over the supraspinatus with all of these motions. Negative drop arm. NVI. Psych Appearance: grossly normal Mental Status: mental status grossly normal Attitude: cooperative Office Procedures AMB Joint Injection/Aspiration Joint Injection/Aspiration Primary Site: right shoulder Prep: site was prepped using aseptic technique, ethochloride spray was applied and injection warnings given Injected: 40 mg of, with 3 mL of, 1% plain lidocaine, 0.25% bupivacaine, in the subcromial space and decadron Approach Used: posterolateral Procedure: The patient tolerated the procedure well, but had some pain with the injection and there was some relief with the local anesthesia Coding - Large joint Procedure code (CPT) selection complete Assessment & Plan Assessment & Plan (1) Painful arc syndrome of right shoulder: Code(s): M75.101 - Unspecified rotator cuff tear or rupture of right shoulder, not specified as traumatic Category: Medical Plan Mr. Veliz is a 39-year-old male who presents to the office today for right shoulder injection. Last cortisone injection was 10/26/2024 at the [place] [facility]. Patient reports this injection did not give him any relief. He is looking to see if he can have a repeat injection in the office today. The patient was offered a cortisone injection in the right shoulder. The patient was explained the risks, benefits, and alternatives to receiving this injection. After receiving consent for the injection, the patient had the procedure done while in the office today. The patient tolerated the procedure well with no complications. Follow-up will be PRN, or sooner if needed Coding Level of Care Code Est Pt Level 3 (91499) Diagnoses Painful arc syndrome of right shoulder M75.101 CPT Codes Coding - 56963 Large joint: 99101 - Large joint ([id number])
== END 2025-01-29 09:53 | disposition home or self-care (01) ==
LOC: HO.HOS 09:11
PROVIDERS: PCP Internal Medicine; Visit Provider Physician Assistant
DX: M75.101 Unspecified rotator cuff tear or rupture of right shoulder, not specified as traumatic (principal)
CPT/HCPCS: 20610; 99213

== ENCOUNTER → 2025-01-29 09:11 | Outpatient (BNVA) | payer OTHER, SELFPAY | PROVIDERS: PCP Internal Medicine; Visit Provider Physician Assistant | DX: M75.101 Unspecified rotator cuff tear or rupture of right shoulder, not specified as traumatic (principal); Z79.52 Long term (current) use of systemic steroids | CPT/HCPCS: 20610; 99212; J0665; J1100; J2003 ==